=== PATIENT | female | born 1965 | race Caucasian/White ===

== ENCOUNTER 2017-02-18 03:20 | Day surgery (SDC) | payer OTHER ==
[~2017-02-18] VITALS: Ht 165.1 cm; Wt 63.2 kg
[~2017-02-18 03:20] MED LIST: ADVAIR PO; ALBIPROI INH; ALBU90OI INH; ALBU90OI6 INH; ALBU90OI61 INH; AMLO10 PO; AMLO5 PO; AMOCLA500 PO; ATOR40TA PO; B-121000 MC2 PO; BIOTIN; Biotin10 MG PO; CARV3.125 PO; CARV6.25 PO; CIPR250 PO; CLON.1 PO; CLON.2 PO; CLON.5 PO; CLOP75 PO; CREON; CREON DR 24,001 EACH PO; CYAN1000 PO; Carafate1 GM/10 ML PO; Chantix0.5 MG PO; Coreg12.5 MG PO; Dazidox10 MG; FERR325; FERR325 PO; FLUSAL1005 IH; FLUSAL1005 INH; FLUSAL2505 INH; FURO20 PO; FURO40 PO; FURO80 PO; GABA100 PO; GABA300 PO; GAVILAX17 GM PO; HYDR1TAB94 PO; Hydrochloroth12.5 MG PO; IRON150C PO; LASIX; LAVAP17G PO; LEVFLO250 PO; LISHYD2025 PO; LISI20 PO; LOSA25 PO; LOSA50 PO; MAGCHL64ER PO; MELA3 PO; MIDO2.5 PO; MORP15ER PO; NAPR220 PO; NEBI5 PO; Norco 5-325 Ta1 EACH PO; OLME5TAB PO; OMEP20ER PO; OMEP40CA12 PO; ONDA4ODT MM; ONDA8 PO; OXYACE5T PO; OXYC10TA19 PO; OXYC1TAB11 PO; OXYC5 PO; Omeprazole20 M1 PO; PANT40 PO; POTA10T PO; PROM25 PO; Percocet 5-3251 EACH PO; RANI150 PO; RXOXYACE PO; SPIR25 PO; SUCR1 PO; SULTRIDS PO; Stool Softener100 MG PO; TRAM50 PO; TRAZ50 PO; VARE1 PO; VITAMIN D10000 UNIT PO; XARELTO10 MG PO; Zofran Odt4 MG PO; Zofran4 MG PO; Zofran8 MG PO
[2017-12-17] MEDS ORDERED: ATOR20 PO (12:12)
[2017-12-17] MEDS ORDERED: WARF5 PO (12:12)
== END 2017-02-18 14:45 | disposition home or self-care (01) ==
LOC: MHTC 03:20
PROC: 047L3Z1 Dilation of Left Femoral Artery using Drug-Coated Balloon, Percutaneous Approach (ICD-10-PCS; principal; 2017-02-18)
DX: I70.212 Atherosclerosis of native arteries of extremities with intermittent claudication, left leg (principal); J44.9 Chronic obstructive pulmonary disease, unspecified; I10 Essential (primary) hypertension; F17.210 Nicotine dependence, cigarettes, uncomplicated; E78.5 Hyperlipidemia, unspecified
CPT/HCPCS: 37224; 75710; 76937; 85347; 99152; 99153; C1725; C1769; C2623; J1644; J2060; J2250; J3010; J7030; J7040; Q9967

== ENCOUNTER 2017-03-26 17:15 | Inpatient (IN) | payer OTHER ==
[~2017-03-26] VITALS: Ht 165.1 cm; Wt 65.6 kg
[2017-03-26] MEDS ORDERED: BUDE6HFA INH (17:50)
[2017-03-26 18:05] LABS: BASOPHILS ABSOLUTE AUTO 0.03 K/mm3 (0.00-0.23); BASOPHILS PERCENT AUTO 0 % (0-2); EOSINOPHILS ABSOLUTE AUTO 0.06 K/mm3 (0.00-0.68); EOSINOPHILS PERCENT AUTO 1 % (0-6); Hematocrit 36.2 % (33.0-51.0); Hemoglobin 11.2 g/dL (11.5-16.0); IMMATURE GRAN ABSOLUTE AUTO 0.07 K/mm3 (0.00-0.10); IMMATURE GRAN PERCENT AUTO 1 % (0-1); LYMPHOCYTES ABSOLUTE AUTO 1.65 K/mm3 (0.84-5.20); LYMPHOCYTES PERCENT AUTO 13 % (21-46); MONOCYTES ABSOLUTE AUTO 0.73 K/mm3 (0.16-1.47); MONOCYTES PERCENT AUTO 6 % (4-13); Mean Corpuscular HGB 28.5 pg (26.0-34.0); Mean Corpuscular HGB Conc 30.9 g/dL (31.5-36.5); Mean Platelet Volume 10.2 fL (9.1-12.4); NEUTROPHILS ABSOLUTE AUTO 9.94 K/mm3 (1.96-9.15); NEUTROPHILS PERCENT AUTO 80 % (41-73); Platelet Count 326 K/mm3 (150-400); RDW Coefficient Variation 19.5 % (11.7-14.2); RDW Standard Deviation 62.3 fL (35.1-46.3); Red Blood Cell Count 3.93 M/mm3 (3.80-5.20); White Blood Cell Count 12.48 K/mm3 (4.00-11.30)
[2017-03-26 18:24] LABS: Alanine Aminotransfer (ALT/SGP 16 U/L (12-78); Albumin, Blood 3.4 g/dL (3.4-5.0); Albumin/Globulin Ratio 0.8 (0.8-1.8); Alk Phos 105 U/L (50-136); Anion Gap 13 mmol/L (6-16); Aspartate Aminotrans (AST/SGOT 21 U/L (12-37); Bilirubin, Total 0.3 mg/dL (0.1-1.0); Blood Urea Nitrogen 25 mg/dL (8-24); CO2, Blood 20 mmol/L (21-32); Calcium, Blood 9.1 mg/dL (8.5-10.1); Chloride, Blood 101 mmol/L (98-108); Creatinine, Blood 2.51 mg/dL (0.40-1.00); Globulin, Blood 4.3 g/dL (2.2-4.0); Glomerular Filtration Rate 22 (60-); Glucose, Blood 118 mg/dL (70-99); Potassium, Blood 3.2 mmol/L (3.5-5.5); Sodium, Blood 134 mmol/L (136-145); Total Protein, Blood 7.7 g/dL (6.4-8.2); Troponin I <0.015 ng/mL (0.000-0.040)
[2017-03-26 18:27] LABS: Mean Corpuscular Volume 92 fL (80-100)
[2017-03-26 18:32] LABS: Source, Urine Clean Catch
[2017-03-26 18:35] LABS: Blood, Urine Neg (Neg); Glucose Qualitative, Urine Neg (Neg); Ketones, Urine 1+ (Neg); Leukocyte Esterase, Urine 1+ (Neg); Nitrite, Urine Neg (Neg); Protein, Urine 2+ (Neg); Specific Gravity, Urine 1.025 (1.003-1.022); Urobilinogen, Urine 1+ (Normal)
[2017-03-26 18:50] LABS: Appearance, Urine Clear (Clear); Color, Urine Yellow (P-Yellow)
[2017-03-26 18:51] LABS: Bacteria Mod /hpf; Red Blood Cells, Urine Not Seen /hpf (0-2); Squamous Epithelial Cells Mod /hpf (Few); White Blood Cells, Urine 0-2 /hpf (0-5)
[2017-03-26 20:35] LABS: International Normalized Ratio 0.96
[2017-03-26 22:06] LABS: Ethanol (Alcohol), Blood, Med <3 mg/dL
[2017-03-26 23:22] LABS: Source, Urine Clean Catch
[2017-03-26 23:24] LABS: Bilirubin, Urine Neg (Neg); Blood, Urine 2+ (Neg); Glucose Qualitative, Urine Neg (Neg); Ketones, Urine Neg (Neg); Leukocyte Esterase, Urine Neg (Neg); Nitrite, Urine Neg (Neg); Protein, Urine 2+ (Neg); Specific Gravity, Urine 1.015 (1.003-1.022); Urobilinogen, Urine NORM (Normal)
[2017-03-26 23:29] LABS: Appearance, Urine Clear (Clear); Bacteria Mod /hpf; Color, Urine Yellow (P-Yellow); Red Blood Cells, Urine 0-2 /hpf (0-2); Squamous Epithelial Cells Few /hpf (Few); White Blood Cells, Urine 0-2 /hpf (0-5)
[2017-03-26 23:38] LABS: U Amphetamine Screen Not Detected; U Barbituate Screen Not Detected; U Benzodiazapine Screen Not Detected; U Buprenorphine Screen Not Detected; U Cannabinoids Screen DETECTED; U Cocaine Screen Not Detected; U Methadone Screen Not Detected; U Methamphetamine Screen Not Detected; U Opiates Screen DETECTED; U Oxycodone Screen Not Detected; U Phencyclidine Screen Not Detected; U Propoxyphene Screen Not Detected
[2017-03-27 05:40] LABS: Magnesium, Blood 2.5 mg/dL (1.6-2.4); Phosphorus, Blood 3.3 mg/dL (2.5-4.9)
[2017-03-27 09:45] LABS: Vancomycin, Random 11.9 ug/mL
[2017-03-28 05:12] LABS: BASOPHILS ABSOLUTE AUTO 0.04 K/mm3 (0.00-0.23); BASOPHILS PERCENT AUTO 1 % (0-2); EOSINOPHILS ABSOLUTE AUTO 0.23 K/mm3 (0.00-0.68); EOSINOPHILS PERCENT AUTO 3 % (0-6); IMMATURE GRAN ABSOLUTE AUTO 0.04 K/mm3 (0.00-0.10); IMMATURE GRAN PERCENT AUTO 1 % (0-1); LYMPHOCYTES ABSOLUTE AUTO 1.64 K/mm3 (0.84-5.20); LYMPHOCYTES PERCENT AUTO 19 % (21-46); MONOCYTES ABSOLUTE AUTO 0.54 K/mm3 (0.16-1.47); MONOCYTES PERCENT AUTO 6 % (4-13); Mean Corpuscular HGB 27.9 pg (26.0-34.0); Mean Corpuscular HGB Conc 28.1 g/dL (31.5-36.5); Mean Platelet Volume 10.4 fL (9.1-12.4); NEUTROPHILS ABSOLUTE AUTO 6.02 K/mm3 (1.96-9.15); NEUTROPHILS PERCENT AUTO 71 % (41-73); Platelet Count 268 K/mm3 (150-400); RDW Standard Deviation 72.4 fL (35.1-46.3); Red Blood Cell Count 3.23 M/mm3 (3.80-5.20); White Blood Cell Count 8.51 K/mm3 (4.00-11.30)
[2017-03-28 05:28] LABS: Mean Corpuscular Volume 99 fL (80-100)
[2017-03-28 05:39] LABS: Albumin, Blood 2.7 g/dL (3.4-5.0); Albumin/Globulin Ratio 0.8 (0.8-1.8); Bilirubin, Total 0.3 mg/dL (0.1-1.0); Bun/Creatinine Ratio 9.6 (12.0-20.0); Calcium, Blood 7.9 mg/dL (8.5-10.1); Creatinine, Blood 1.15 mg/dL (0.40-1.00); Globulin, Blood 3.6 g/dL (2.2-4.0); Potassium, Blood 4.1 mmol/L (3.5-5.5); Total Protein, Blood 6.3 g/dL (6.4-8.2)
[2017-03-28] MEDS ORDERED: DOCU100 PO (11:27)
[2017-03-28] MEDS ORDERED: NICO21TP TOP (11:28)
[2017-03-28] MEDS ORDERED: GAVILAX17 GM PO (11:28)
[2017-03-28] MEDS ORDERED: HYDR1TAB94 PO (11:28)
[2017-12-17] MEDS ORDERED: ATOR20 PO (12:12)
[2017-12-17] MEDS ORDERED: WARF5 PO (12:12)
== END 2017-03-28 11:53 | disposition home or self-care (01) | DRG 871 ==
LOC: ER 17:15 → MEDS 20:11 → ENPENDDIS 03-28 10:00 → MEDS 03-28 11:53
PROVIDERS: Family Medicine; Internal Medicine; Physician Assistant
PROC: 3E0234Z Introduction of Serum, Toxoid and Vaccine into Muscle, Percutaneous Approach (ICD-10-PCS; principal; 2017-03-27)
DX: A41.9 Sepsis, unspecified organism (principal); K85.90 Acute pancreatitis without necrosis or infection, unspecified; N17.9 Acute kidney failure, unspecified; K86.1 Other chronic pancreatitis; E87.1 Hypo-osmolality and hyponatremia; K86.3 Pseudocyst of pancreas; Z23 Encounter for immunization; F12.20 Cannabis dependence, uncomplicated; F10.20 Alcohol dependence, uncomplicated; E87.6 Hypokalemia; I12.9 Hypertensive chronic kidney disease with stage 1 through stage 4 chronic kidney disease, or unspecified chronic kidney disease; N18.9 Chronic kidney disease, unspecified; E78.5 Hyperlipidemia, unspecified; K21.9 Gastro-esophageal reflux disease without esophagitis; J44.9 Chronic obstructive pulmonary disease, unspecified; I73.9 Peripheral vascular disease, unspecified; F17.210 Nicotine dependence, cigarettes, uncomplicated; R11.2 Nausea with vomiting, unspecified; R10.9 Unspecified abdominal pain
CPT/HCPCS: 36415; 71046; 74177; 76705; 80053; 80202; 81001; 82150; 82330; 82565; 83605; 83690; 83735; 84100; 84484; 85025; 85610; 85730; 87040; 87081; 87086; 93005; 93010; 94640; 94760; 96361; 96365; 96375; 99285; C9113; G0480; J0713; J1170; J1650; J1885; J2405; J2543; J3370; J3411; J3475; J3480; J7030; J7042; J7050; Q9967

== ENCOUNTER → 2017-05-28 | Outpatient (CLI) | payer OTHER ==
[~2017-05-28] MED LIST changes: +BUDE6HFA INH; +DOCU100 PO; +NICO21TP TOP
[2017-05-28 18:56] LABS: Albumin, Blood 2.4 g/dL (3.4-5.0); Albumin/Globulin Ratio 0.7 (0.8-1.8); Bilirubin, Total 0.2 mg/dL (0.1-1.0); Bun/Creatinine Ratio 6.3 (12.0-20.0); Calcium, Blood 7.7 mg/dL (8.5-10.1); Creatinine, Blood 1.11 mg/dL (0.40-1.00); Globulin, Blood 3.4 g/dL (2.2-4.0); Potassium, Blood 4.2 mmol/L (3.5-5.5); Total Protein, Blood 5.8 g/dL (6.4-8.2)
== END | disposition home or self-care (01) ==
LOC: LAB 17:27 → LAB SHORT 17:27
PROVIDERS: Internal Medicine Hematology & Oncology
DX: E53.8 Deficiency of other specified B group vitamins (principal); D50.0 Iron deficiency anemia secondary to blood loss (chronic)
CPT/HCPCS: 80053; 82607; 82746

== ENCOUNTER 2017-09-12 23:32 | Inpatient (IN) | payer OTHER ==
[~2017-09-12] VITALS: Ht 165.1 cm; Wt 71.8 kg
[2017-09-13 00:40] LABS: BASOPHILS ABSOLUTE AUTO 0.09 K/mm3 (0.00-0.23); BASOPHILS PERCENT AUTO 1 % (0-2); EOSINOPHILS ABSOLUTE AUTO 0.12 K/mm3 (0.00-0.68); EOSINOPHILS PERCENT AUTO 1 % (0-6); Hematocrit 35.5 % (33.0-51.0); Hemoglobin 11.1 g/dL (11.5-16.0); IMMATURE GRAN ABSOLUTE AUTO 0.26 K/mm3 (0.00-0.10); IMMATURE GRAN PERCENT AUTO 2 % (0-1); LYMPHOCYTES ABSOLUTE AUTO 2.73 K/mm3 (0.84-5.20); LYMPHOCYTES PERCENT AUTO 24 % (21-46); MONOCYTES ABSOLUTE AUTO 0.87 K/mm3 (0.16-1.47); MONOCYTES PERCENT AUTO 8 % (4-13); Mean Corpuscular HGB 37.8 pg (26.0-34.0); Mean Corpuscular HGB Conc 31.3 g/dL (31.5-36.5); Mean Corpuscular Volume 121 fL (80-100); Mean Platelet Volume 12.7 fL (9.1-12.4); NEUTROPHILS ABSOLUTE AUTO 7.23 K/mm3 (1.96-9.15); NEUTROPHILS PERCENT AUTO 64 % (41-73); NRBC ABSOLUTE 0.22 K/mm3 (0.00-0.02); NRBC Auto 1.9 /100 WBC (0.0-0.2); Platelet Count 212 K/mm3 (150-400); RDW Coefficient Variation 17.8 % (11.7-14.2); RDW Standard Deviation 79.7 fL (35.1-46.3); Red Blood Cell Count 2.94 M/mm3 (3.80-5.20)
[2017-09-13 01:10] LABS: Source, Urine Clean Catch
[2017-09-13 01:35] LABS: Alanine Aminotransfer (ALT/SGP 298 U/L (12-78); Albumin, Blood 1.8 g/dL (3.4-5.0); Albumin/Globulin Ratio 0.4 (0.8-1.8); Alk Phos 270 U/L (50-136); Anion Gap 11 mmol/L (6-16); Aspartate Aminotrans (AST/SGOT 1424 U/L (12-37); Bilirubin, Total 4.2 mg/dL (0.1-1.0); Blood Urea Nitrogen 22 mg/dL (8-24); Bun/Creatinine Ratio 8.1 (12.0-20.0); CO2, Blood 24 mmol/L (21-32); Chloride, Blood 102 mmol/L (98-108); Creatinine, Blood 2.71 mg/dL (0.40-1.00); Globulin, Blood 4.4 g/dL (2.2-4.0); Glomerular Filtration Rate 20 (60-); Glucose, Blood 84 mg/dL (70-99); Potassium, Blood 4.8 mmol/L (3.5-5.5); Sodium, Blood 137 mmol/L (136-145); Total Protein, Blood 6.2 g/dL (6.4-8.2)
[2017-09-13 01:59] LABS: Appearance, Urine Cloudy (Clear); Blood, Urine 5+ (Neg); Color, Urine Amber (P-Yellow); Glucose Qualitative, Urine Neg (Neg); Ketones, Urine 1+ (Neg); Leukocyte Esterase, Urine 3+ (Neg); Nitrite, Urine Pos (Neg); Protein, Urine 3+ (Neg); Urobilinogen, Urine 4+ (Normal)
[2017-09-13 02:30] LABS: Bilirubin, Urine 3+ (Neg)
[2017-09-13 02:33] LABS: Amorphous Light (0-Heavy); Bacteria Many /hpf; Squamous Epithelial Cells Few /hpf (Few)
[2017-09-13 03:10] LABS: Ethanol (Alcohol), Blood, Med <3 mg/dL
[2017-09-13] MEDS ORDERED: CHOL10002 (05:28)
[2017-09-13 05:36] LABS: International Normalized Ratio 1.11; Prothrombin Time Results 11.4 Sec (9.7-11.5)
[2017-09-13] MEDS ORDERED: IBUP400 PO ×4 (05:37→05:45)
[2017-09-13 12:26] LABS: Hematocrit 31.3 % (33.0-51.0); Hemoglobin 9.6 g/dL (11.5-16.0); Mean Corpuscular HGB 37.4 pg (26.0-34.0); Mean Corpuscular HGB Conc 30.7 g/dL (31.5-36.5); Mean Corpuscular Volume 122 fL (80-100); Mean Platelet Volume 12.3 fL (9.1-12.4); NRBC ABSOLUTE 0.09 K/mm3 (0.00-0.02); NRBC Auto 1.1 /100 WBC (0.0-0.2); Platelet Count 165 K/mm3 (150-400); RDW Coefficient Variation 18.2 % (11.7-14.2); RDW Standard Deviation 79.5 fL (35.1-46.3); Red Blood Cell Count 2.57 M/mm3 (3.80-5.20); White Blood Cell Count 8.41 K/mm3 (4.00-11.30)
[2017-09-13 12:47] LABS: Albumin, Blood 1.8 g/dL (3.4-5.0); Albumin/Globulin Ratio 0.5 (0.8-1.8); Bun/Creatinine Ratio 9.8 (12.0-20.0); Calcium, Blood 7.2 mg/dL (8.5-10.1); Creatinine, Blood 2.14 mg/dL (0.40-1.00); Globulin, Blood 3.3 g/dL (2.2-4.0); Potassium, Blood 4.3 mmol/L (3.5-5.5); Total Protein, Blood 5.1 g/dL (6.4-8.2)
[2017-09-15 04:45] LABS: BASOPHILS ABSOLUTE AUTO 0.06 K/mm3 (0.00-0.23); BASOPHILS PERCENT AUTO 1 % (0-2); EOSINOPHILS ABSOLUTE AUTO 0.08 K/mm3 (0.00-0.68); EOSINOPHILS PERCENT AUTO 1 % (0-6); Hematocrit 31.9 % (33.0-51.0); Hemoglobin 9.9 g/dL (11.5-16.0); IMMATURE GRAN ABSOLUTE AUTO 0.13 K/mm3 (0.00-0.10); IMMATURE GRAN PERCENT AUTO 2 % (0-1); LYMPHOCYTES ABSOLUTE AUTO 1.18 K/mm3 (0.84-5.20); LYMPHOCYTES PERCENT AUTO 15 % (21-46); MONOCYTES ABSOLUTE AUTO 0.53 K/mm3 (0.16-1.47); MONOCYTES PERCENT AUTO 7 % (4-13); Mean Corpuscular HGB 37.2 pg (26.0-34.0); Mean Corpuscular Volume 120 fL (80-100); Mean Platelet Volume 12.2 fL (9.1-12.4); NEUTROPHILS ABSOLUTE AUTO 5.85 K/mm3 (1.96-9.15); NEUTROPHILS PERCENT AUTO 75 % (41-73); NRBC ABSOLUTE 0.05 K/mm3 (0.00-0.02); NRBC Auto 0.6 /100 WBC (0.0-0.2); Platelet Count 165 K/mm3 (150-400); RDW Coefficient Variation 17.9 % (11.7-14.2); RDW Standard Deviation 78.7 fL (35.1-46.3); Red Blood Cell Count 2.66 M/mm3 (3.80-5.20); White Blood Cell Count 7.83 K/mm3 (4.00-11.30)
[2017-09-15 05:17] LABS: Bun/Creatinine Ratio 16.7 (12.0-20.0); Calcium, Blood 8.1 mg/dL (8.5-10.1); Creatinine, Blood 1.08 mg/dL (0.40-1.00); Potassium, Blood 4.3 mmol/L (3.5-5.5)
[2017-09-16 07:57] LABS: Base Excess Venous -0.6 mmol/L; Bicarbonate Venous 24.3 mmol/L (24.0-30.0); PCO2 Venous 31.9 mmHg (38-42); PO2 Venous 101 mmHg (38-42); pH Blood Venous 7.47 (7.34-7.37)
[2017-09-17 05:37] LABS: BASOPHILS ABSOLUTE AUTO 0.08 K/mm3 (0.00-0.23); BASOPHILS PERCENT AUTO 1 % (0-2); EOSINOPHILS ABSOLUTE AUTO 0.12 K/mm3 (0.00-0.68); EOSINOPHILS PERCENT AUTO 1 % (0-6); Hemoglobin 10.2 g/dL (11.5-16.0); IMMATURE GRAN ABSOLUTE AUTO 0.28 K/mm3 (0.00-0.10); IMMATURE GRAN PERCENT AUTO 3 % (0-1); LYMPHOCYTES PERCENT AUTO 20 % (21-46); MONOCYTES ABSOLUTE AUTO 0.69 K/mm3 (0.16-1.47); MONOCYTES PERCENT AUTO 7 % (4-13); Mean Corpuscular HGB Conc 31.9 g/dL (31.5-36.5); Mean Platelet Volume 12.6 fL (9.1-12.4); NEUTROPHILS ABSOLUTE AUTO 6.84 K/mm3 (1.96-9.15); NEUTROPHILS PERCENT AUTO 68 % (41-73); NRBC ABSOLUTE 0.06 K/mm3 (0.00-0.02); NRBC Auto 0.6 /100 WBC (0.0-0.2); Platelet Count 184 K/mm3 (150-400); RDW Coefficient Variation 17.6 % (11.7-14.2); RDW Standard Deviation 75.4 fL (35.1-46.3); Red Blood Cell Count 2.76 M/mm3 (3.80-5.20); White Blood Cell Count 10.01 K/mm3 (4.00-11.30)
[2017-09-17 05:41] LABS: Mean Corpuscular Volume 116 fL (80-100)
[2017-09-17 05:59] LABS: Anion Gap 8 mmol/L (6-16); Blood Urea Nitrogen 13 mg/dL (8-24); Bun/Creatinine Ratio 15.3 (12.0-20.0); CO2, Blood 25 mmol/L (21-32); Calcium, Blood 8.2 mg/dL (8.5-10.1); Chloride, Blood 108 mmol/L (98-108); Creatinine, Blood 0.85 mg/dL (0.40-1.00); Glomerular Filtration Rate >60 (60-); Glucose, Blood 80 mg/dL (70-99); Sodium, Blood 141 mmol/L (136-145)
[2017-09-17] MEDS ORDERED: ALBU2.5V5 NEB (11:06)
[2017-09-17] MEDS ORDERED: GABA100 PO (11:08)
[2017-09-17] MEDS ORDERED: GUAI600T33 PO (11:10)
[2017-09-17] MEDS ORDERED: HYDCHL25 PO (11:11)
[2017-09-17] MEDS ORDERED: NICO21TP TOP (11:12)
== END 2017-09-17 11:48 | disposition home or self-care (01) | DRG 690 ==
LOC: ER 23:32 → PCU 09-13 03:35 → MEDS 09-14 15:50
PROVIDERS: Emergency Medicine; Internal Medicine
DX: N39.0 Urinary tract infection, site not specified (principal); N17.9 Acute kidney failure, unspecified; F10.230 Alcohol dependence with withdrawal, uncomplicated; E78.5 Hyperlipidemia, unspecified; I10 Essential (primary) hypertension; J44.9 Chronic obstructive pulmonary disease, unspecified; I73.9 Peripheral vascular disease, unspecified; N18.2 Chronic kidney disease, stage 2 (mild); F17.210 Nicotine dependence, cigarettes, uncomplicated; R74.0 Nonspecific elevation of levels of transaminase and lactic acid dehydrogenase [LDH]; B96.20 Unspecified Escherichia coli [E. coli] as the cause of diseases classified elsewhere; E88.09 Other disorders of plasma-protein metabolism, not elsewhere classified; K70.30 Alcoholic cirrhosis of liver without ascites; D63.1 Anemia in chronic kidney disease; R91.1 Solitary pulmonary nodule
CPT/HCPCS: 36415; 71045; 71260; 76705; 80048; 80053; 81001; 82803; 83605; 83690; 83880; 85025; 85027; 85379; 85610; 87040; 87077; 87086; 87186; 93005; 93010; 93925; 94640; 94760; 94761; 96361; 96374; 96375; 97110; 97116; 97162; 97166; 97530; 97535; 99285-25; G0480; G8978; G8979; G8987; G8988; J0696; J0780; J1650; J2405; J3010; J7030; P9041; P9612; Q9967

== ENCOUNTER 2018-05-05 20:59 | Emergency (ER) | payer OTHER ==
[~2018-05-05] VITALS: Ht 167.6 cm; Wt 59.0 kg
[~2018-05-05 20:59] MED LIST changes: +ALBU2.5V5 NEB; +ATOR20 PO; +CHOL10002; +GUAI600T33 PO; +HYDCHL25 PO; +IBUP400 PO; +WARF5 PO
[2018-05-05 21:26] LABS: BASOPHILS ABSOLUTE AUTO 0.05 K/mm3 (0.00-0.23); BASOPHILS PERCENT AUTO 1 % (0-2); EOSINOPHILS ABSOLUTE AUTO 0.08 K/mm3 (0.00-0.68); EOSINOPHILS PERCENT AUTO 1 % (0-6); Hemoglobin 13.6 g/dL (11.5-16.0); IMMATURE GRAN ABSOLUTE AUTO 0.04 K/mm3 (0.00-0.10); IMMATURE GRAN PERCENT AUTO 0 % (0-1); LYMPHOCYTES ABSOLUTE AUTO 1.57 K/mm3 (0.84-5.20); LYMPHOCYTES PERCENT AUTO 16 % (21-46); MONOCYTES ABSOLUTE AUTO 0.47 K/mm3 (0.16-1.47); MONOCYTES PERCENT AUTO 5 % (4-13); Mean Corpuscular HGB 30.4 pg (26.0-34.0); Mean Corpuscular HGB Conc 31.6 g/dL (31.5-36.5); Mean Corpuscular Volume 96 fL (80-100); Mean Platelet Volume 10.2 fL (9.1-12.4); NEUTROPHILS ABSOLUTE AUTO 7.59 K/mm3 (1.96-9.15); NEUTROPHILS PERCENT AUTO 78 % (41-73); Platelet Count 392 K/mm3 (150-400); RDW Coefficient Variation 22.8 % (11.7-14.2); RDW Standard Deviation 75.5 fL (35.1-46.3); Red Blood Cell Count 4.48 M/mm3 (3.80-5.20)
[2018-05-05 21:47] LABS: Alanine Aminotransfer (ALT/SGP 41 U/L (12-78); Albumin, Blood 3.5 g/dL (3.4-5.0); Albumin/Globulin Ratio 0.8 (0.8-1.8); Alk Phos 198 U/L (50-136); Anion Gap 9 mmol/L (6-16); Aspartate Aminotrans (AST/SGOT 114 U/L (12-37); Bilirubin, Total 0.4 mg/dL (0.1-1.0); Blood Urea Nitrogen 12 mg/dL (8-24); Bun/Creatinine Ratio 13.3 (12.0-20.0); CO2, Blood 24 mmol/L (21-32); Calcium, Blood 8.6 mg/dL (8.5-10.1); Chloride, Blood 102 mmol/L (98-108); Globulin, Blood 4.6 g/dL (2.2-4.0); Glomerular Filtration Rate >60 (60-); Glucose, Blood 112 mg/dL (70-99); Potassium, Blood 3.9 mmol/L (3.5-5.5); Sodium, Blood 135 mmol/L (136-145); Total Protein, Blood 8.1 g/dL (6.4-8.2)
[2018-05-05] MEDS ORDERED: Zocor20 MG PO (22:28)
[2018-05-05] MEDS ORDERED: CLON.5 PO (22:28)
[2018-05-05] MEDS ORDERED: TRAM50 PO (22:28)
[2018-05-06] MEDS ORDERED: ONDA4ODT MM (01:38)
[2018-05-06] MEDS ORDERED: Norco 5-325 Ta1 EACH PO (01:38)
== END 2018-05-06 02:02 | disposition home or self-care (01) ==
LOC: ER 20:59
PROVIDERS: Physician Assistant
DX: K86.0 Alcohol-induced chronic pancreatitis (principal); Z79.899 Other long term (current) drug therapy; Z79.01 Long term (current) use of anticoagulants; I10 Essential (primary) hypertension; J44.9 Chronic obstructive pulmonary disease, unspecified; F17.210 Nicotine dependence, cigarettes, uncomplicated; F17.290 Nicotine dependence, other tobacco product, uncomplicated
CPT/HCPCS: 36415; 74176; 80053; 83690; 85025; 96374; 96375; 99284-25; A9270-GY; G0480; J1170; J2405

== ENCOUNTER 2018-05-24 21:21 | Emergency (ER) | payer OTHER ==
[~2018-05-24] VITALS: Ht 165.1 cm; Wt 65.8 kg
[~2018-05-24 21:21] MED LIST changes: +CEPH500 PO; +Pyridium200 MG PO; +Zocor20 MG PO
[2018-05-24 22:03] LABS: Source, Urine Clean Catch
[2018-05-24 22:08] LABS: Bilirubin, Urine Neg (Neg); Blood, Urine Neg (Neg); Glucose Qualitative, Urine Neg (Neg); Ketones, Urine Neg (Neg); Leukocyte Esterase, Urine 1+ (Neg); Nitrite, Urine Neg (Neg); Protein, Urine Neg (Neg); Specific Gravity, Urine 1.005 (1.003-1.022); Urobilinogen, Urine NORM (Normal)
[2018-05-24 22:13] LABS: Appearance, Urine Clear (Clear); Color, Urine Yellow (P-Yellow)
[2018-05-24 22:15] LABS: Squamous Epithelial Cells Mod /hpf (Few)
[2018-05-24 22:16] LABS: Bacteria Rare /hpf; Red Blood Cells, Urine Not Seen /hpf (0-2); White Blood Cells, Urine 0-2 /hpf (0-5)
[2018-05-24 22:20] LABS: BASOPHILS ABSOLUTE AUTO 0.07 K/mm3 (0.00-0.23); BASOPHILS PERCENT AUTO 1 % (0-2); EOSINOPHILS ABSOLUTE AUTO 0.08 K/mm3 (0.00-0.68); EOSINOPHILS PERCENT AUTO 1 % (0-6); Hematocrit 34.2 % (33.0-51.0); Hemoglobin 10.4 g/dL (11.5-16.0); IMMATURE GRAN ABSOLUTE AUTO 0.07 K/mm3 (0.00-0.10); IMMATURE GRAN PERCENT AUTO 1 % (0-1); LYMPHOCYTES ABSOLUTE AUTO 1.82 K/mm3 (0.84-5.20); LYMPHOCYTES PERCENT AUTO 18 % (21-46); MONOCYTES ABSOLUTE AUTO 0.74 K/mm3 (0.16-1.47); MONOCYTES PERCENT AUTO 7 % (4-13); Mean Corpuscular HGB 30.4 pg (26.0-34.0); Mean Corpuscular HGB Conc 30.4 g/dL (31.5-36.5); Mean Corpuscular Volume 100 fL (80-100); Mean Platelet Volume 10.6 fL (9.1-12.4); NEUTROPHILS ABSOLUTE AUTO 7.19 K/mm3 (1.96-9.15); NEUTROPHILS PERCENT AUTO 72 % (41-73); Platelet Count 476 K/mm3 (150-400); RDW Coefficient Variation 24.1 % (11.7-14.2); RDW Standard Deviation 86.7 fL (35.1-46.3); Red Blood Cell Count 3.42 M/mm3 (3.80-5.20); White Blood Cell Count 9.97 K/mm3 (4.00-11.30)
[2018-05-24 23:19] LABS: Alanine Aminotransfer (ALT/SGP 13 U/L (12-78); Albumin, Blood 2.3 g/dL (3.4-5.0); Albumin/Globulin Ratio 0.5 (0.8-1.8); Alk Phos 126 U/L (50-136); Anion Gap 10 mmol/L (6-16); Aspartate Aminotrans (AST/SGOT 29 U/L (12-37); Bilirubin, Total 0.2 mg/dL (0.1-1.0); Blood Urea Nitrogen 10 mg/dL (8-24); Bun/Creatinine Ratio 11.7 (12.0-20.0); CO2, Blood 26 mmol/L (21-32); Calcium, Blood 7.8 mg/dL (8.5-10.1); Chloride, Blood 102 mmol/L (98-108); Creatinine, Blood 0.86 mg/dL (0.40-1.00); Globulin, Blood 4.2 g/dL (2.2-4.0); Glomerular Filtration Rate >60 (60-); Glucose, Blood 99 mg/dL (70-99); Potassium, Blood 3.4 mmol/L (3.5-5.5); Sodium, Blood 138 mmol/L (136-145); Total Protein, Blood 6.5 g/dL (6.4-8.2)
[2018-05-24] MEDS ORDERED: Zofran4 MG PO (23:58)
== END 2018-05-25 00:25 | disposition home or self-care (01) ==
LOC: ER 21:21
PROVIDERS: Emergency Medicine; Physician Assistant
DX: K52.9 Noninfective gastroenteritis and colitis, unspecified (principal); J44.9 Chronic obstructive pulmonary disease, unspecified; F17.210 Nicotine dependence, cigarettes, uncomplicated; Z79.899 Other long term (current) drug therapy; Z79.01 Long term (current) use of anticoagulants; Z86.73 Personal history of transient ischemic attack (TIA), and cerebral infarction without residual deficits
CPT/HCPCS: 36415; 80053; 81001; 83690; 85025; 87086; 96361; 96374; 96375; 99284-25; A9270-GY; J2405; J3010; J7030

== ENCOUNTER 2018-05-27 14:00 | Inpatient (IN) | payer OTHER ==
[~2018-05-27] VITALS: Ht 165.1 cm; Wt 63.3 kg
[2018-05-27 14:42] LABS: BASOPHILS ABSOLUTE AUTO 0.05 K/mm3 (0.00-0.23); BASOPHILS PERCENT AUTO 1 % (0-2); EOSINOPHILS ABSOLUTE AUTO 0.08 K/mm3 (0.00-0.68); EOSINOPHILS PERCENT AUTO 1 % (0-6); Hematocrit 28.3 % (33.0-51.0); Hemoglobin 8.4 g/dL (11.5-16.0); IMMATURE GRAN ABSOLUTE AUTO 0.09 K/mm3 (0.00-0.10); IMMATURE GRAN PERCENT AUTO 1 % (0-1); LYMPHOCYTES ABSOLUTE AUTO 1.33 K/mm3 (0.84-5.20); LYMPHOCYTES PERCENT AUTO 16 % (21-46); MONOCYTES ABSOLUTE AUTO 0.51 K/mm3 (0.16-1.47); MONOCYTES PERCENT AUTO 6 % (4-13); Mean Corpuscular HGB 30.4 pg (26.0-34.0); Mean Corpuscular HGB Conc 29.7 g/dL (31.5-36.5); Mean Platelet Volume 10.4 fL (9.1-12.4); NEUTROPHILS ABSOLUTE AUTO 6.34 K/mm3 (1.96-9.15); NEUTROPHILS PERCENT AUTO 75 % (41-73); NRBC ABSOLUTE 0.02 K/mm3 (0.00-0.02); NRBC Auto 0.2 /100 WBC (0.0-0.2); Platelet Count 431 K/mm3 (150-400); RDW Coefficient Variation 24.6 % (11.7-14.2); RDW Standard Deviation 92.4 fL (35.1-46.3); Red Blood Cell Count 2.76 M/mm3 (3.80-5.20)
[2018-05-27 14:48] LABS: Alanine Aminotransfer (ALT/SGP 20 U/L (12-78); Albumin, Blood 2.3 g/dL (3.4-5.0); Albumin/Globulin Ratio 0.6 (0.8-1.8); Alk Phos 124 U/L (50-136); Anion Gap 12 mmol/L (6-16); Aspartate Aminotrans (AST/SGOT 49 U/L (12-37); Bilirubin, Total 0.2 mg/dL (0.1-1.0); Blood Urea Nitrogen 13 mg/dL (8-24); Bun/Creatinine Ratio 15.5 (12.0-20.0); CO2, Blood 21 mmol/L (21-32); Calcium, Blood 7.9 mg/dL (8.5-10.1); Chloride, Blood 105 mmol/L (98-108); Creatinine, Blood 0.84 mg/dL (0.40-1.00); Glomerular Filtration Rate >60 (60-); Glucose, Blood 91 mg/dL (70-99); Potassium, Blood 3.6 mmol/L (3.5-5.5); Sodium, Blood 138 mmol/L (136-145); Total Protein, Blood 6.3 g/dL (6.4-8.2)
[2018-05-27 14:57] LABS: Mean Corpuscular Volume 103 fL (80-100)
[2018-05-27 16:37] LABS: Prothrombin Time Results >90.0 Sec (9.7-11.5)
[2018-05-27] MEDS ORDERED: WARF1 PO (19:46)
[2018-05-27] MEDS ORDERED: BUDE6HFA PO (19:47)
[2018-05-27] MEDS ORDERED: ALBU90OI PO (19:48)
[2018-05-27] MEDS ORDERED: PROM25 PO (19:49)
[2018-05-27] MEDS ORDERED: TRAZ50 PO (19:50)
[2018-05-27] MEDS ORDERED: CLON.1 PO (19:51)
[2018-05-27] MEDS ORDERED: AMLO5 PO (19:51)
[2018-05-27] MEDS ORDERED: FURO20 PO (19:52)
[2018-05-27] MEDS ORDERED: POTCHL10ER PO (19:53)
[2018-05-27] MEDS ORDERED: IRON150C PO (19:54)
[2018-05-27] MEDS ORDERED: DOCU100 PO (19:54)
[2018-05-27] MEDS ORDERED: GUAI600T33 PO (19:55)
[2018-05-27 20:09] LABS: Hematocrit 26.2 % (33.0-51.0); Hemoglobin 7.7 g/dL (11.5-16.0)
[2018-05-27] MEDS ORDERED: GABA300 PO (22:20)
[2018-05-28 00:22] LABS: Hematocrit 22.9 % (33.0-51.0); Hemoglobin 6.7 g/dL (11.5-16.0)
[2018-05-28 00:36] LABS: International Normalized Ratio 2.69; Prothrombin Time Results 26.1 Sec (9.7-11.5)
--- NOTE | 2018-05-28 00:53 | NUR ---
DR. ODELL NOTIFIED: 0016 H&H 6.7 AND 22.9. NEW ORDERS TO TRANSFUSE ONE UNIT OF [facility].
[2018-05-28 05:10] LABS: International Normalized Ratio 2.15
[2018-05-28 05:15] LABS: Alanine Aminotransfer (ALT/SGP 17 U/L (12-78); Albumin, Blood 2.2 g/dL (3.4-5.0); Albumin/Globulin Ratio 0.7 (0.8-1.8); Alk Phos 101 U/L (50-136); Anion Gap 6 mmol/L (6-16); Aspartate Aminotrans (AST/SGOT 40 U/L (12-37); Bilirubin, Total 0.6 mg/dL (0.1-1.0); Blood Urea Nitrogen 8 mg/dL (8-24); Bun/Creatinine Ratio 10.6 (12.0-20.0); CO2, Blood 27 mmol/L (21-32); Calcium, Blood 7.4 mg/dL (8.5-10.1); Chloride, Blood 107 mmol/L (98-108); Creatinine, Blood 0.76 mg/dL (0.40-1.00); Globulin, Blood 3.3 g/dL (2.2-4.0); Glomerular Filtration Rate >60 (60-); Glucose, Blood 92 mg/dL (70-99); Potassium, Blood 3.4 mmol/L (3.5-5.5); Sodium, Blood 140 mmol/L (136-145); Total Protein, Blood 5.5 g/dL (6.4-8.2)
[2018-05-28 05:33] LABS: Prothrombin Time Results 21.3 Sec (9.7-11.5)
[2018-05-28 06:15] LABS: Hemoglobin 7.9 g/dL (11.5-16.0); Mean Corpuscular HGB 30.3 pg (26.0-34.0); Mean Corpuscular HGB Conc 30.4 g/dL (31.5-36.5); Mean Platelet Volume 10.1 fL (9.1-12.4); Platelet Count 307 K/mm3 (150-400); RDW Coefficient Variation 23.4 % (11.7-14.2); RDW Standard Deviation 79.2 fL (35.1-46.3); Red Blood Cell Count 2.61 M/mm3 (3.80-5.20); White Blood Cell Count 6.17 K/mm3 (4.00-11.30)
[2018-05-28 06:16] LABS: Mean Corpuscular Volume 100 fL (80-100)
--- NOTE | 2018-05-28 06:41 | NUR ---
[facility] INFUSED: H&H 7.9 & 26.0. INR 2.15 (WILL PASS ON TO DAY RN TO SEE IF NEED TO RESTART COUMADIN..OR?). PT HAS BEEN PLEASANT, COOPERATIVE T/O NOC AND IS CURRENTLY SLEEPING. VSS. PT HAD STATED THAT SHE IS NOW FEELING HUNGRY WHICH IS UNUSUAL FOR HER. WILL PASS ON FOR POSSIBLE DIET CHANGE THIS AM IF NO SCOPE SCHEDULED. PROTONIX GTT STILL INFUSING, NS INFUSING AT 150mL/hr. CALL LIGHT IN REACH.
--- NOTE | 2018-05-28 08:08 | NUR ---
INITIAL ASSESSMENT PATIENT IS RESTING QUIETLY IN BED. PATIENT WAS MEDICATED WITH PRN PAIN MEDICATION FOR RLQ PAIN. PATIENT HAS A TEMPERATURE OF 99.2 DEGREES FAHRENHEIT. PATIENT HAS SOB ON EXERTION, WITH EXPIRATORY RHONCHI HEARD T/O. PATIENT IS SATTING WELL AT 90% OR ABOVE ON 2 L NC. PATIENT HR IS IN THE 80S TO 90S. NSR. BP IS STABLE. GI IS SOFT WITH MILD DISTENSION, TENDER UPON PALPATION WITH NORMOACTIVE BOWEL TONES. PATIENT WAS GIVEN PRN ZOFRAN FOR NAUSEA. IS WNL. PATIENT HAS SCATTERED SCABS AND BRUISES T/O. PATIENT SKIN IS DUSKY/SCALY LOOKING ON THE LL BARAH[place]. NS IS INFUSING AT 150 ML/HR. PROTONIX IS INFUSING AT 10 ML/HR. NO ACUTE CHANGES TO NOTE AT THIS TIME. BED LOW, CALL LIGHT WITHIN REACH. WILL CONTINUE TO MONITOR.
--- NOTE | 2018-05-28 09:01 | NUR ---
SPOKE WITH DR. HINES, UPDATED ON PATIENT CONDITION. INFORMED OF MORNING POTASSIUM OF 3.4 THIS AM, INFORMED OF INR LEVEL. DR. MURRAY INFORMED OF CONSULT. STATED HE WOULD BE IN TO SEE PATIENT THIS AFTERNOON.
[2018-05-28 10:14] LABS: Hematocrit 27.2 % (33.0-51.0); Hemoglobin 8.3 g/dL (11.5-16.0)
--- NOTE | 2018-05-28 11:54 | NUR ---
PATIENT IS RESTING QUIETLY IN BED. PATIENT WAS ASSISTED TO THE TOILET WITH STANDBY ASSIST AND WALKER, AND THEN TO THE CHAIR. PATIENT WAS ASSISTED WITH BEDBATH. PATIENT WAS MEDICATED WITH PRN PAIN MEDICATION FOR COMPLAINT OF RLQ PAIN. PATIENT IS AFEBRILE. PATIENT REMAINS SATTING WELL AT 90% OR GREATER ON 2L NC. HR IS IN THE 90S WITH NSR. BP IS STABLE. NO ACUTE CHANGES AT THIS TIME TO NOTE. WILL CONTINUE TO MONITOR.
--- NOTE | 2018-05-28 13:06 | NUR ---
DR. MURRAY SAW PATIENT IN ROOM. STATED THAT PATIENT CAN BE CHANGED TO PCU STATUS. ORDERED FOR SCHEDULED MIRALAX AND COLACE PATIENT HAS NOT HAD BM IN MORE THAN 7 DAYS, PER PATIENT REPORT. WOULD LIKE TO CONTINUE PATIENT ON CLEAR LIQUID DIET UNTIL IS ABLE TO HAVE BM. PATIENT INFORMED BY DR. MURRAY THAT SHE IS NOT TO GO OUT TO SMOKE. PATIENT IS NOT HAPPY ABOUT THIS. PATIENT TOLD THAT SHE WOULD LIKE TO GO AMA. DR. HINES CALLED AND INFORMED AND STATED SHE WILL BE DOWN TO TALK WITH PATIENT SOON.
--- NOTE | 2018-05-28 14:14 | NUR ---
PATIENT CHANGED TO MEDICAL FLOOR WITH NO TELE. DR. HINES STATED THAT IT IS OKAY FOR PATIENT TO GO OUT AND SMOKE. PATIENT INSISTENT ON GOING OUT TO SMOKE RIGHT NOW. PATIENT GIVEN MEDICATIONS, LAB IN NOW TO DRAW BLOOD AND THEN PATIENT WILL BE GOING OUT. PATIENT INSTRUCTED THAT SHE MUST BE BACK WITHIN 30 MINUTES OF LEAVING- PATIENT AGREES. PATIENT HAS BEEN ON 2 L NC- SATTING 96%. PATIENT CHANGED TO RA- SATTING 90% AND GREATER WILL NOT BE TAKING O2 OUT TO SMOKE. PATIENT STATES SHE ONLY WEARS O2 AT HOME AT NIGHT ANYWAY SO THAT SHE WILL BE OKAY.
--- NOTE | 2018-05-28 14:18 | NUR ---
PATIENT HAS LEFT UNIT.
[2018-05-28 14:41] LABS: Hematocrit 29.4 % (33.0-51.0); Hemoglobin 8.9 g/dL (11.5-16.0)
--- NOTE | 2018-05-28 14:58 | NUR ---
PATIENT RETURNED TO ROOM AT 1447 WITH WHAT APPEARED TO BE WORSENED SYMPTOMS. PATIENT STATED "THAT DR WAS RIGHT, MY PAIN IS WORSE SINCE I SMOKED". PATIENT WAS ASSISTED BACK TO BED, AND PLACED ON 2L NC. PRN PAIN MEDICATION WAS GIVEN. WILL CONTINUE TO MONITOR.
--- NOTE | 2018-05-28 17:32 | NUR ---
SHIFT SUMMARY PATIENT IS RESTING QUIETLY IN BED. PATIENT IS AFEBRILE. PATIENT CONTINUES TO HAVE SOB ON EXERTION WITH EXPIRATORY WHEEZES HEARD T/O. PATIENT IS SATTING 90% OR GREATER ON 1 L NC. PATIENT HAS A MOIST NONPRODUCTIVE COUGH. PATIENT IS IN NSR WITH HR IN THE 80S-90S. BP IS STABLE. GI IS SOFT, TENDER, W NORMOACTIVE BOWEL SOUNDS. PATIENT HAD SOME NAUSEA THROUGHOUT THE SHIFT TODAY THAT WAS TREATED WITH PRN ZOFRAN. PATIENT HAS EXPERIENCED 8/10 RLQ PAIN THAT WAS TREATED WITH PRN PAIN MEDICATION. IS WNL. PATIENT HAS SCATTERED SCABS AND BRUISES T/O. LL BARAHONA IS DUSKY/SCALY. NS IS INFUSING AT 100 ML/HR. BED LOW. CALL LIGHT IN REACH. NO ACUTE CHANGES AT THIS TIME.
--- NOTE | 2018-05-28 20:05 | NUR ---
PT IS TEARFUL AND HUNCHED OVER ON SIDE OF BED STATING HER PAIN IN ABD IS UNBEARABLE. PERCOCET DID NOT HELP. CALLED RUBÉN PEREZ OVERLOCK WAISTLINE JOINER WHO ORDERED ONE TIME DOSE OF FENTANYL AND INCREASED PERCOCET DOSE. EDUCATED PT THAT THE DOCTORS ARE TRYING TO GET HER SWITCHED OVER TO PO PAIN MEDS SHE IS NOT ABLE TO LEAVE THE HOSPITAL WITH IV PAIN MEDS.
--- NOTE | 2018-05-28 22:02 | NUR ---
PT SITTING UP IN BED WATCHING TV. PAIN IS TOLERABLE AT THE MOMENT.
[2018-05-29 03:50] LABS: BASOPHILS ABSOLUTE AUTO 0.03 K/mm3 (0.00-0.23); BASOPHILS PERCENT AUTO 1 % (0-2); EOSINOPHILS ABSOLUTE AUTO 0.19 K/mm3 (0.00-0.68); EOSINOPHILS PERCENT AUTO 3 % (0-6); Hematocrit 26.6 % (33.0-51.0); Hemoglobin 7.9 g/dL (11.5-16.0); IMMATURE GRAN ABSOLUTE AUTO 0.02 K/mm3 (0.00-0.10); IMMATURE GRAN PERCENT AUTO 0 % (0-1); LYMPHOCYTES ABSOLUTE AUTO 1.63 K/mm3 (0.84-5.20); LYMPHOCYTES PERCENT AUTO 26 % (21-46); MONOCYTES ABSOLUTE AUTO 0.45 K/mm3 (0.16-1.47); MONOCYTES PERCENT AUTO 7 % (4-13); Mean Corpuscular HGB 29.7 pg (26.0-34.0); Mean Corpuscular HGB Conc 29.7 g/dL (31.5-36.5); Mean Corpuscular Volume 100 fL (80-100); NEUTROPHILS ABSOLUTE AUTO 3.88 K/mm3 (1.96-9.15); NEUTROPHILS PERCENT AUTO 63 % (41-73); NRBC ABSOLUTE 0.03 K/mm3 (0.00-0.02); NRBC Auto 0.5 /100 WBC (0.0-0.2); Platelet Count 308 K/mm3 (150-400); RDW Coefficient Variation 24.1 % (11.7-14.2); RDW Standard Deviation 84.8 fL (35.1-46.3); Red Blood Cell Count 2.66 M/mm3 (3.80-5.20)
[2018-05-29 04:05] LABS: International Normalized Ratio 1.22; Prothrombin Time Results 12.7 Sec (9.7-11.5)
[2018-05-29 04:11] LABS: Alanine Aminotransfer (ALT/SGP 18 U/L (12-78); Albumin, Blood 2.2 g/dL (3.4-5.0); Albumin/Globulin Ratio 0.6 (0.8-1.8); Alk Phos 106 U/L (50-136); Anion Gap 6 mmol/L (6-16); Aspartate Aminotrans (AST/SGOT 35 U/L (12-37); Bilirubin, Total 0.4 mg/dL (0.1-1.0); Blood Urea Nitrogen 4 mg/dL (8-24); Bun/Creatinine Ratio 5.3 (12.0-20.0); CO2, Blood 25 mmol/L (21-32); Calcium, Blood 7.4 mg/dL (8.5-10.1); Chloride, Blood 111 mmol/L (98-108); Creatinine, Blood 0.75 mg/dL (0.40-1.00); Globulin, Blood 3.6 g/dL (2.2-4.0); Glomerular Filtration Rate >60 (60-); Glucose, Blood 80 mg/dL (70-99); Potassium, Blood 4.1 mmol/L (3.5-5.5); Sodium, Blood 142 mmol/L (136-145); Total Protein, Blood 5.8 g/dL (6.4-8.2)
--- NOTE | 2018-05-29 06:20 | NUR ---
SUMMARY PT RESTING AT EDGE OF BED. A/O X4. PT HAS HAD BETTER PAIN CONTROL WITH 2 PERCOCET EVERY 4 HR PRN. PLEASANT AND COOPERATIVE. NO NAUSEA. HAS NOT HAD A BM YET. CONTINUES WITH CL DIET. HAS BEEN GETTING TO [facility] WITHOUT ISSUE. CALL LIGHT IN REACH, NO SIGN OF DISTRESS.
--- NOTE | 2018-05-29 07:43 | NUR ---
PATIENT GOING OUT TO SMOKE AT THIS TIME.
--- NOTE | 2018-05-29 08:20 | NUR ---
PATIENT BACK TO ROOM FROM SMOKING OUTSIDE.
--- NOTE | 2018-05-29 08:34 | NUR ---
DR. HINES IN TO SEE PATIENT. DOCTOR INFORMED OF INR OF 1.22 THIS AM. NO ORDERS RECEIVED AT THIS TIME.
--- NOTE | 2018-05-29 08:39 | NUR ---
INITIAL ASSESSMENT PATIENT WENT OUT TO SMOKE THIS AM. RETURNED TO ROOM. PATIENT STATES NO PAIN AT THIS TIME. PATIENT STATED FEELING NAUSEOUS, AND WAS MEDICATED WITH PRN ZOFRAN FOR THIS. PATIENT IS AFEBRILE. PATIENT IS INDEPENDENT IN ROOM. PATIENT IS SATTING AT 90% ON RA. HR IS IN THE 80S-90S. NSR. BP IS STABLE. PATIENT HAD A GREEN/BLACK STOOL LAST NIGHT PER REPORT. IS WNL. PATIENT IS INDEPENDENT IN ROOM. NO ACUTE CHANGES TO NOTE AT THIS TIME. BED LOW. CALL LIGHT IN REACH. WILL CONTINUE TO MONITOR.
[2018-05-29] MEDS ORDERED: Nicotine Patch1 EAC5 TOP (11:17)
[2018-05-29] MEDS ORDERED: GAVILAX17 GM PO (11:18)
[2018-05-29] MEDS ORDERED: Protonix40 MG PO (11:20)
[2018-05-29] MEDS ORDERED: Carafate1 GM/10 ML PO (11:22)
--- NOTE | 2018-05-29 11:58 | NUR ---
DISCHARGE SUMMARY PATIENT WAS GIVEN DISCHARGE INSTRUCTIONS. VITAL SIGNS WERE TAKEN AND STABLE. PATIENT HAD NO COMPLAINTS OF PAIN OR DISCOMFORT. IVS WERE REMOVED. PATIENT WAS TAKEN IN WHEELCHAIR TO [facility] AND ASSISTED INTO HER MOTHER'S AUTOMOBILE.
== END 2018-05-29 11:40 | disposition home or self-care (01) | DRG 812 ==
LOC: ER 14:00 → ICUW 19:45
PROVIDERS: Internal Medicine; Nurse Practitioner Acute Care; Physician Assistant; ADMIT Internal Medicine
PROC: 30233N1 Transfusion of Nonautologous Red Blood Cells into Peripheral Vein, Percutaneous Approach (ICD-10-PCS; principal; 2018-05-27)
DX: D62 Acute posthemorrhagic anemia (principal); K86.1 Other chronic pancreatitis; J44.9 Chronic obstructive pulmonary disease, unspecified; I73.9 Peripheral vascular disease, unspecified; E78.5 Hyperlipidemia, unspecified; F17.210 Nicotine dependence, cigarettes, uncomplicated; Z99.81 Dependence on supplemental oxygen; F10.10 Alcohol abuse, uncomplicated; K21.9 Gastro-esophageal reflux disease without esophagitis; E87.6 Hypokalemia
CPT/HCPCS: 36415; 36430; 74177; 80053; 82272; 83605; 83690; 83735; 85014; 85018; 85025; 85027; 85610; 86850; 86900; 86901; 86923; 87040; 94640; 96361-59; 96374-59; 96375-59; 96376-59; 99285-25; C9113; J1170; J2405; J3010; J3411; J3475; J7030; J7042; P9016; P9059; Q9967

== ENCOUNTER → 2018-06-02 | Outpatient (CLI) | payer OTHER ==
[~2018-06-02] MED LIST changes: +ALBU90OI PO; +BUDE6HFA PO; +Nicotine Patch1 EAC5 TOP; +POTCHL10ER PO; +Protonix40 MG PO; +WARF1 PO
[2018-06-02 15:36] LABS: Percent Saturation 6.4 % (15.0-50.0)
== END | disposition home or self-care (01) ==
LOC: LAB SHORT 15:04 → LAB 15:04
PROVIDERS: Internal Medicine Hematology & Oncology
DX: D50.0 Iron deficiency anemia secondary to blood loss (chronic) (principal)
CPT/HCPCS: 83540; 83550

== ENCOUNTER 2018-07-17 18:58 | Emergency (ER) | payer OTHER ==
[~2018-07-17] VITALS: Ht 160 cm; Wt 70.3 kg
[2018-07-17 19:54] LABS: BASOPHILS ABSOLUTE AUTO 0.06 K/mm3 (0.00-0.23); BASOPHILS PERCENT AUTO 1 % (0-2); EOSINOPHILS ABSOLUTE AUTO 0.09 K/mm3 (0.00-0.68); EOSINOPHILS PERCENT AUTO 1 % (0-6); Hematocrit 38.8 % (33.0-51.0); Hemoglobin 11.4 g/dL (11.5-16.0); IMMATURE GRAN ABSOLUTE AUTO 0.02 K/mm3 (0.00-0.10); IMMATURE GRAN PERCENT AUTO 0 % (0-1); LYMPHOCYTES ABSOLUTE AUTO 1.64 K/mm3 (0.84-5.20); LYMPHOCYTES PERCENT AUTO 25 % (21-46); MONOCYTES ABSOLUTE AUTO 0.55 K/mm3 (0.16-1.47); MONOCYTES PERCENT AUTO 8 % (4-13); Mean Corpuscular HGB 27.9 pg (26.0-34.0); Mean Corpuscular HGB Conc 29.4 g/dL (31.5-36.5); Mean Corpuscular Volume 95 fL (80-100); Mean Platelet Volume 10.9 fL (9.1-12.4); NEUTROPHILS ABSOLUTE AUTO 4.22 K/mm3 (1.96-9.15); NEUTROPHILS PERCENT AUTO 64 % (41-73); Platelet Count 311 K/mm3 (150-400); RDW Coefficient Variation 22.1 % (11.7-14.2); RDW Standard Deviation 75.8 fL (35.1-46.3); Red Blood Cell Count 4.09 M/mm3 (3.80-5.20); White Blood Cell Count 6.58 K/mm3 (4.00-11.30)
[2018-07-17 20:15] LABS: Alanine Aminotransfer (ALT/SGP 22 U/L (12-78); Albumin/Globulin Ratio 0.8 (0.8-1.8); Alk Phos 93 U/L (50-136); Anion Gap 8 mmol/L (6-16); Aspartate Aminotrans (AST/SGOT 43 U/L (12-37); Bilirubin, Total 0.2 mg/dL (0.1-1.0); Blood Urea Nitrogen 7 mg/dL (8-24); Bun/Creatinine Ratio 8.6 (12.0-20.0); CO2, Blood 24 mmol/L (21-32); Calcium, Blood 8.5 mg/dL (8.5-10.1); Chloride, Blood 110 mmol/L (98-108); Creatinine, Blood 0.82 mg/dL (0.40-1.00); Globulin, Blood 3.9 g/dL (2.2-4.0); Glomerular Filtration Rate >60 (60-); Glucose, Blood 121 mg/dL (70-99); Potassium, Blood 3.3 mmol/L (3.5-5.5); Sodium, Blood 142 mmol/L (136-145); Total Protein, Blood 6.9 g/dL (6.4-8.2)
[2018-07-17] MEDS ORDERED: GABA300 PO (20:15)
[2018-07-17 21:28] LABS: Source, Urine Clean Catch
[2018-07-17 21:37] LABS: Appearance, Urine Hazy (Clear); Bilirubin, Urine Neg (Neg); Blood, Urine 1+ (Neg); Color, Urine Yellow (P-Yellow); Glucose Qualitative, Urine Neg (Neg); Ketones, Urine 1+ (Neg); Leukocyte Esterase, Urine 1+ (Neg); Nitrite, Urine Pos (Neg); Protein, Urine 2+ (Neg); Specific Gravity, Urine 1.025 (1.003-1.022); Urobilinogen, Urine NORM (Normal)
[2018-07-17 21:46] LABS: Bacteria Many /hpf; Red Blood Cells, Urine 0-2 /hpf (0-2); Squamous Epithelial Cells Few /hpf (Few)
[2018-07-17] MEDS ORDERED: CEPH500 PO (22:14)
[2018-07-17] MEDS ORDERED: ONDA4ODT MM (22:15)
[2018-07-17] MEDS ORDERED: Percocet 5-3251 EACH PO (22:15)
== END 2018-07-17 23:03 | disposition home or self-care (01) ==
LOC: ER 18:58
PROVIDERS: Emergency Medicine
DX: K85.90 Acute pancreatitis without necrosis or infection, unspecified (principal); E87.6 Hypokalemia; N12 Tubulo-interstitial nephritis, not specified as acute or chronic; Z79.899 Other long term (current) drug therapy; Z79.01 Long term (current) use of anticoagulants; J44.9 Chronic obstructive pulmonary disease, unspecified; Z86.73 Personal history of transient ischemic attack (TIA), and cerebral infarction without residual deficits; F17.200 Nicotine dependence, unspecified, uncomplicated
CPT/HCPCS: 36415; 74022; 80053; 81001; 83690; 85025; 87077; 87086; 87186; 96361; 96365; 96375; 99284-25; A9270; G0480; J0696; J0780; J1170; J2405; J3010; J7030

== ENCOUNTER 2018-10-30 10:00 | Emergency (ER) | payer OTHER ==
[~2018-10-30] VITALS: Ht 165.1 cm; Wt 64.4 kg
[2018-10-30 11:30] LABS: BASOPHILS ABSOLUTE AUTO 0.04 K/mm3 (0.00-0.23); BASOPHILS PERCENT AUTO 1 % (0-2); EOSINOPHILS ABSOLUTE AUTO 0.01 K/mm3 (0.00-0.68); EOSINOPHILS PERCENT AUTO 0 % (0-6); Hematocrit 43.4 % (33.0-51.0); Hemoglobin 14.2 g/dL (11.5-16.0); IMMATURE GRAN ABSOLUTE AUTO 0.02 K/mm3 (0.00-0.10); IMMATURE GRAN PERCENT AUTO 0 % (0-1); LYMPHOCYTES ABSOLUTE AUTO 0.86 K/mm3 (0.84-5.20); LYMPHOCYTES PERCENT AUTO 17 % (21-46); MONOCYTES ABSOLUTE AUTO 0.34 K/mm3 (0.16-1.47); MONOCYTES PERCENT AUTO 7 % (4-13); Mean Corpuscular HGB 34.1 pg (26.0-34.0); Mean Corpuscular HGB Conc 32.7 g/dL (31.5-36.5); Mean Corpuscular Volume 104 fL (80-100); Mean Platelet Volume 10.7 fL (9.1-12.4); NEUTROPHILS ABSOLUTE AUTO 3.81 K/mm3 (1.96-9.15); NEUTROPHILS PERCENT AUTO 75 % (41-73); Platelet Count 253 K/mm3 (150-400); RDW Coefficient Variation 15.1 % (11.7-14.2); RDW Standard Deviation 58.3 fL (35.1-46.3); Red Blood Cell Count 4.16 M/mm3 (3.80-5.20); White Blood Cell Count 5.08 K/mm3 (4.00-11.30)
[2018-10-30 11:45] LABS: Alanine Aminotransfer (ALT/SGP 21 U/L (12-78); Albumin, Blood 2.8 g/dL (3.4-5.0); Albumin/Globulin Ratio 0.7 (0.8-1.8); Alk Phos 161 U/L (50-136); Anion Gap 6 mmol/L (6-16); Aspartate Aminotrans (AST/SGOT 49 U/L (12-37); Bilirubin, Total 0.5 mg/dL (0.1-1.0); Blood Urea Nitrogen 8 mg/dL (8-24); Bun/Creatinine Ratio 10.3 (12.0-20.0); CO2, Blood 24 mmol/L (21-32); Calcium, Blood 8.9 mg/dL (8.5-10.1); Chloride, Blood 107 mmol/L (98-108); Creatinine, Blood 0.78 mg/dL (0.40-1.00); Globulin, Blood 4.2 g/dL (2.2-4.0); Glomerular Filtration Rate >60 (60-); Glucose, Blood 107 mg/dL (70-99); Potassium, Blood 4.6 mmol/L (3.5-5.5); Sodium, Blood 137 mmol/L (136-145)
[2018-10-30 13:28] LABS: Source, Urine Clean Catch
[2018-10-30 13:34] LABS: Bilirubin, Urine Neg (Neg); Blood, Urine Neg (Neg); Glucose Qualitative, Urine Neg (Neg); Ketones, Urine 1+ (Neg); Leukocyte Esterase, Urine Neg (Neg); Nitrite, Urine Neg (Neg); Protein, Urine Neg (Neg); Specific Gravity, Urine 1.015 (1.003-1.022); Urobilinogen, Urine 1+ (Normal)
[2018-10-30 13:41] LABS: Appearance, Urine Clear (Clear); Color, Urine Yellow (P-Yellow)
[2018-10-30] MEDS ORDERED: Ultram50 MG PO ×2 (15:43→16:03)
== END 2018-10-30 16:05 | disposition home or self-care (01) ==
LOC: ER 10:00
PROVIDERS: Emergency Medicine
DX: R10.31 Right lower quadrant pain (principal); I10 Essential (primary) hypertension; N19 Unspecified kidney failure; F17.200 Nicotine dependence, unspecified, uncomplicated; J44.9 Chronic obstructive pulmonary disease, unspecified; Z86.73 Personal history of transient ischemic attack (TIA), and cerebral infarction without residual deficits; Z79.899 Other long term (current) drug therapy
CPT/HCPCS: 36415; 74177; 80053; 81003; 83690; 85025; 96361; 96374-59; 96375; 99284-25; J1170; J2405; J7030; Q9967

== ENCOUNTER 2019-01-01 19:55 | Emergency (ER) | payer OTHER ==
[~2019-01-01] VITALS: Ht 165.1 cm; Wt 65.8 kg
[~2019-01-01 19:55] MED LIST changes: +Ultram50 MG PO
[2019-03-14] MEDS ORDERED: OMEPRAZOLE20 MG PO (03:35)
== END 2019-01-01 22:00 | disposition home or self-care (01) ==
LOC: ER 19:55
DX: F10.129 Alcohol abuse with intoxication, unspecified (principal); S09.90XA Unspecified injury of head, initial encounter; I10 Essential (primary) hypertension; J44.9 Chronic obstructive pulmonary disease, unspecified; F17.200 Nicotine dependence, unspecified, uncomplicated; Z79.899 Other long term (current) drug therapy; Z79.891 Long term (current) use of opiate analgesic; Z79.01 Long term (current) use of anticoagulants; Z86.73 Personal history of transient ischemic attack (TIA), and cerebral infarction without residual deficits; Z85.41 Personal history of malignant neoplasm of cervix uteri; W01.10XA Fall on same level from slipping, tripping and stumbling with subsequent striking against unspecified object, initial encounter
CPT/HCPCS: 70450; 72125; 99284-25

== ENCOUNTER 2019-04-29 18:53 | Emergency (ER) | payer OTHER ==
[~2019-04-29] VITALS: Ht 165.1 cm; Wt 59.0 kg
[~2019-04-29 18:53] MED LIST changes: +OMEPRAZOLE20 MG PO
[2019-04-29 19:46] LABS: BASOPHILS ABSOLUTE AUTO 0.07 K/mm3 (0.00-0.23); BASOPHILS PERCENT AUTO 1 % (0-2); EOSINOPHILS ABSOLUTE AUTO 0.12 K/mm3 (0.00-0.68); EOSINOPHILS PERCENT AUTO 1 % (0-6); Hematocrit 42.9 % (33.0-51.0); Hemoglobin 14.1 g/dL (11.5-16.0); IMMATURE GRAN ABSOLUTE AUTO 0.03 K/mm3 (0.00-0.10); IMMATURE GRAN PERCENT AUTO 0 % (0-1); LYMPHOCYTES ABSOLUTE AUTO 1.48 K/mm3 (0.84-5.20); LYMPHOCYTES PERCENT AUTO 12 % (21-46); MONOCYTES ABSOLUTE AUTO 0.81 K/mm3 (0.16-1.47); MONOCYTES PERCENT AUTO 7 % (4-13); Mean Corpuscular HGB 33.9 pg (26.0-34.0); Mean Corpuscular HGB Conc 32.9 g/dL (31.5-36.5); Mean Corpuscular Volume 103 fL (80-100); Mean Platelet Volume 11.1 fL (9.1-12.4); NEUTROPHILS ABSOLUTE AUTO 9.69 K/mm3 (1.96-9.15); NEUTROPHILS PERCENT AUTO 80 % (41-73); Platelet Count 286 K/mm3 (150-400); RDW Coefficient Variation 15.8 % (11.7-14.2); RDW Standard Deviation 60.4 fL (35.1-46.3); Red Blood Cell Count 4.16 M/mm3 (3.80-5.20)
[2019-04-29 19:58] LABS: Anion Gap 2 mmol/L (6-16); Blood Urea Nitrogen 13 mg/dL (8-24); Bun/Creatinine Ratio 14.7 (12.0-20.0); CO2, Blood 26 mmol/L (21-32); Calcium, Blood 8.5 mg/dL (8.5-10.1); Chloride, Blood 105 mmol/L (98-108); Creatinine, Blood 0.89 mg/dL (0.40-1.00); Glomerular Filtration Rate >60 (60-); Glucose, Blood 102 mg/dL (70-99); Potassium, Blood 3.9 mmol/L (3.5-5.5); Sodium, Blood 133 mmol/L (136-145)
[2019-04-29] MEDS ORDERED: CEPH500 PO (20:16)
[2019-04-29] MEDS ORDERED: Percocet 5-3251 EACH PO (20:16)
== END 2019-04-29 20:41 | disposition home or self-care (01) ==
LOC: ER 18:53
PROVIDERS: Emergency Medicine
DX: T81.41XA Infection following a procedure, superficial incisional surgical site, initial encounter (principal); L03.116 Cellulitis of left lower limb; S81.012D Laceration without foreign body, left knee, subsequent encounter; I10 Essential (primary) hypertension; J44.9 Chronic obstructive pulmonary disease, unspecified; I73.9 Peripheral vascular disease, unspecified; N19 Unspecified kidney failure; Z86.73 Personal history of transient ischemic attack (TIA), and cerebral infarction without residual deficits; Z79.899 Other long term (current) drug therapy; Z79.01 Long term (current) use of anticoagulants; Z79.51 Long term (current) use of inhaled steroids; F17.210 Nicotine dependence, cigarettes, uncomplicated
CPT/HCPCS: 36415; 80048; 85025; 99283; A9270; A9270-GY

== ENCOUNTER 2019-05-02 02:29 | Inpatient (IN) | payer OTHER ==
[~2019-05-02] VITALS: Ht 165.1 cm; Wt 61.2 kg
[2019-05-02 03:03] LABS: BASOPHILS ABSOLUTE AUTO 0.03 K/mm3 (0.00-0.23); BASOPHILS PERCENT AUTO 0 % (0-2); EOSINOPHILS ABSOLUTE AUTO 0.05 K/mm3 (0.00-0.68); EOSINOPHILS PERCENT AUTO 1 % (0-6); Hematocrit 38.4 % (33.0-51.0); Hemoglobin 12.6 g/dL (11.5-16.0); IMMATURE GRAN ABSOLUTE AUTO 0.04 K/mm3 (0.00-0.10); IMMATURE GRAN PERCENT AUTO 0 % (0-1); LYMPHOCYTES ABSOLUTE AUTO 1.21 K/mm3 (0.84-5.20); LYMPHOCYTES PERCENT AUTO 11 % (21-46); MONOCYTES ABSOLUTE AUTO 0.62 K/mm3 (0.16-1.47); MONOCYTES PERCENT AUTO 6 % (4-13); Mean Corpuscular HGB 33.8 pg (26.0-34.0); Mean Corpuscular HGB Conc 32.8 g/dL (31.5-36.5); Mean Corpuscular Volume 103 fL (80-100); Mean Platelet Volume 11.1 fL (9.1-12.4); NEUTROPHILS ABSOLUTE AUTO 9.14 K/mm3 (1.96-9.15); NEUTROPHILS PERCENT AUTO 82 % (41-73); Platelet Count 261 K/mm3 (150-400); RDW Coefficient Variation 15.6 % (11.7-14.2); RDW Standard Deviation 59.1 fL (35.1-46.3); Red Blood Cell Count 3.73 M/mm3 (3.80-5.20); White Blood Cell Count 11.09 K/mm3 (4.00-11.30)
[2019-05-02 03:19] LABS: Alanine Aminotransfer (ALT/SGP 16 U/L (12-78); Albumin, Blood 2.4 g/dL (3.4-5.0); Albumin/Globulin Ratio 0.6 (0.8-1.8); Alk Phos 164 U/L (50-136); Anion Gap 6 mmol/L (6-16); Aspartate Aminotrans (AST/SGOT 20 U/L (12-37); Bilirubin, Total 0.3 mg/dL (0.1-1.0); Blood Urea Nitrogen 9 mg/dL (8-24); Bun/Creatinine Ratio 11.4 (12.0-20.0); CO2, Blood 25 mmol/L (21-32); Calcium, Blood 8.2 mg/dL (8.5-10.1); Chloride, Blood 107 mmol/L (98-108); Creatinine, Blood 0.79 mg/dL (0.40-1.00); Globulin, Blood 4.1 g/dL (2.2-4.0); Glomerular Filtration Rate >60 (60-); Glucose, Blood 116 mg/dL (70-99); Potassium, Blood 3.1 mmol/L (3.5-5.5); Sodium, Blood 138 mmol/L (136-145); Total Protein, Blood 6.5 g/dL (6.4-8.2)
[2019-05-02 06:28] LABS: International Normalized Ratio 0.95; Prothrombin Time Results 10.2 Sec (9.7-11.5)
--- NOTE | 2019-05-02 16:50 | NUR ---
ORTHO CONSULT: DR OZUNA IN ROOM TO SEE PATIENT. LEFT KNEE WOUND FLUSHED WITH 1LNS AND DRESSED WITH GAUZE AND KERLEX. PT ENCOURAGED BY DOCTOR TO SHOWER AND WORK WITH PT. PT MAY EAT, NO SURGICAL INTERVENTION AT THIS TIME.
--- NOTE | 2019-05-02 18:44 | NUR ---
pt has been stable this shift. pt unable to work with therapy today r/t high levels of pain. dr skaggs in to irrigate knee wound and dress it. pt is non surgical at this time. encouraged mobility as tolerated. pt has poor appetite. iv fluids infusing. pt voiding appropriate amount. attends on for occasional urgency incontinence. pt pending blood cultures. afebrile. cont iv abx. pt uses call light appropriately as needed.
[2019-05-03 04:36] LABS: BASOPHILS ABSOLUTE AUTO 0.04 K/mm3 (0.00-0.23); BASOPHILS PERCENT AUTO 1 % (0-2); EOSINOPHILS ABSOLUTE AUTO 0.09 K/mm3 (0.00-0.68); EOSINOPHILS PERCENT AUTO 1 % (0-6); Hematocrit 36.4 % (33.0-51.0); Hemoglobin 11.7 g/dL (11.5-16.0); IMMATURE GRAN ABSOLUTE AUTO 0.02 K/mm3 (0.00-0.10); IMMATURE GRAN PERCENT AUTO 0 % (0-1); LYMPHOCYTES ABSOLUTE AUTO 1.54 K/mm3 (0.84-5.20); LYMPHOCYTES PERCENT AUTO 20 % (21-46); MONOCYTES ABSOLUTE AUTO 0.53 K/mm3 (0.16-1.47); MONOCYTES PERCENT AUTO 7 % (4-13); Mean Corpuscular HGB 33.2 pg (26.0-34.0); Mean Corpuscular HGB Conc 32.1 g/dL (31.5-36.5); Mean Corpuscular Volume 103 fL (80-100); Mean Platelet Volume 11.1 fL (9.1-12.4); NEUTROPHILS ABSOLUTE AUTO 5.48 K/mm3 (1.96-9.15); NEUTROPHILS PERCENT AUTO 71 % (41-73); Platelet Count 239 K/mm3 (150-400); RDW Coefficient Variation 16.3 % (11.7-14.2); RDW Standard Deviation 60.9 fL (35.1-46.3); Red Blood Cell Count 3.52 M/mm3 (3.80-5.20)
[2019-05-03 04:51] LABS: International Normalized Ratio 1.05; Prothrombin Time Results 11.2 Sec (9.7-11.5)
[2019-05-03 05:03] LABS: Alanine Aminotransfer (ALT/SGP 14 U/L (12-78); Albumin, Blood 2.3 g/dL (3.4-5.0); Albumin/Globulin Ratio 0.6 (0.8-1.8); Alk Phos 152 U/L (50-136); Anion Gap 4 mmol/L (6-16); Aspartate Aminotrans (AST/SGOT 29 U/L (12-37); Bilirubin, Total 0.6 mg/dL (0.1-1.0); Blood Urea Nitrogen 5 mg/dL (8-24); Bun/Creatinine Ratio 7.4 (12.0-20.0); CO2, Blood 22 mmol/L (21-32); Calcium, Blood 8.2 mg/dL (8.5-10.1); Chloride, Blood 116 mmol/L (98-108); Creatinine, Blood 0.67 mg/dL (0.40-1.00); Globulin, Blood 3.7 g/dL (2.2-4.0); Glomerular Filtration Rate >60 (60-); Glucose, Blood 73 mg/dL (70-99); Sodium, Blood 142 mmol/L (136-145)
--- NOTE | 2019-05-03 06:07 | NUR ---
PT VSS, DRESSING CDI W/NO VISIBLE DRNG. L KNEE PAINFUL W/MVMT, PT REFUSING TO GET OOB OR DO ANY ROM EXERCISES, BUT DOES REPOSITION SELF IN BED. PAIN MGD PER EMAR, PT REFUSING NON PHARM METHODS. PT USING CALL LIGHT FOR ASSISTANCE, WILL CONT TO MONITOR UNTIL REP GIVEN TO ONCOMING RN.
--- NOTE | 2019-05-03 10:58 | NUR ---
RFA IV IS INTACT AND FLUSHES WELL. WILL CONTINUE TO MONITOR.
[2019-05-03 16:26] LABS: Vancomycin, Trough 17.8 ug/mL (5.0-10.0)
--- NOTE | 2019-05-03 16:28 | NUR ---
PAIN MANAGEMENT PAIN MANAGEMENT HAS BEEN AN ISSUE T/O THE DAY. PT WAS ABLE TO GO OUTSIDE THIS SHIFT. IV MEDICATION WAS DISCONTINUED BY DR. CANNON AND PO MEDICATION WAS INCREASED. WHEN PT WAS NOTIFIED THAT IV PAIN MEDICATION WAS DISCONTINUED BY DR. CANNON, SHE BECAME UPSET AND SAID DR. CANNON HAD NOT NOTIFIED HER. PT WAS EDUCATED THAT PO PAIN MEDICATION HAD BEEN INCREASED. SHE BECAME FRUSTRATED AND STARTED MOVING AROUN IN HER W/C AND SLAMMING DRAWERS. DR. CANNON WAS NOTIFIED. PERCOCET WAS INCREASED TO 10/325 AND BREAKTHROUGH DOSE OF OXY ORDERED BY DR. CANNON. ATTEMPTED TO SUGGEST ELEVATING LEG ON A PILLOW, PT DECLINED AND REPORTED THAT IS UNCOMFORTABLE. SHE HAS SAT WITH HER LEG IN A DEPENDENT POSITION T/O THE DAY. PT ALSO DECLINED USING ICE ON HER KNEE. PT OFFERED ASSISTANCE WITH W/C, SHE DECLINED ASSISTANCE FROM STAFF.
--- NOTE | 2019-05-03 16:57 | NUR ---
ATTEMPTED TO CALL PT ADVOCATE. SHE IS UNAVALIABLE AFTER 0. LABOR CONCILIATOR IVETT NOTIFIED AND REQUESTED NURSING PARQUET FLOOR LAYER'S HELPER.
--- NOTE | 2019-05-03 17:37 | NUR ---
SHIFT SUMMARY: PATIENT HAS BEEN UNAROUSABLE WHEN CALLED HIS NAME OR LIGHTLY TOUCHED. HE DOESN'T OPEN HIS EYES EITHER, AND HAS SOME MOTTLING ON HIS LEGS. HE WILL RAISE HIS EYEBROWS ON OCCASSION WHEN BEING REPOSITIONED OR WHEN A FAMILY MEMBER CALLS ON THE PHONE. WHEN HE INHALES HE USES HIS ACCESSORY MUSCLES WELL HAS SOME GARGLING. THE NURSE AND I HAVE FREQUENTLY USED SUCTION TO DECREASE THE SECREATIONS THROUGHOUT THE SHIFT. HE HAS HIS MOUTH OPEN AND MAINLY USES HIS MOUTH TO BREATH. HIS SKIN CAN SOMETIMES GET CLAMMY ESPECIALLY ON HIS HANDS. GAVE HIM A COOL WASH CLOTH WHEN THIS HAPPENED AND HE WOULD RAISE HIS EYEBROWNS AND MOAN. HIS NIECE IS AT BEDSIDE CURRENTLY AND STATED "I'M WAITING FOR THE OTHER FAMILY MEMBERS TO GET HERE AND THEN I WILL LEAVE TO GIVE THEM TIME ALONE WITH HIM". FREQUENTLY CHECKING ON THE PATIENT FOR THE CLAMMY-NESS, BECOMING TOO WARM, OR IF HE SEEMS TO BE IN PAIN RELATED TO HIS MOANING OR EYEBROWNS BEING RAISED. THERE IS A COMFORT CART IN THE PATIENTS ROOM FOR THE FAMILY MEMBERS. THE FAMILY MEMBERS HAVE ALSO BEEN CALLING THE PATIENTS PHONE IN THE ROOM TO TALK. THE NURSE AND I FREQUENTLY CHECKED HIS ROOM TO SEE IF THE PHONE HAS BEEN RINGNING AND TO HOLD THE PHONE UP TO THE PATIENTS HEAR TO LISTEN. PATIENTS FAMILY MEMBERS SEEM TO REALLY APPRECIATE IT. WILL CONTINUE TO MONITOR PATIENT.
--- NOTE | 2019-05-03 17:42 | NUR ---
PAIN PT REPORTS PAIN HAS IMPROVED SINCE SHE HAD ADDITIONAL DOSE OF OXYCODONE. WILL CONTINUE TO MONITOR.
--- NOTE | 2019-05-03 17:49 | NUR ---
SHIFT SUMMARY PAIN MANAGEMENT HAS BEEN DIFFICULT THIS SHIFT, OXYCODONE HAS BEEN INCREASED (SEE PREVIOUS NOTE). PT WORKED WITH THERAPY TODAY AND WAS ABLE TO TRANSFER TO A WHEELCHAIR. DR. CASIANO ROUNDED ON PT AND WILL TAKE HER FOR AN ANGIO TOMORROW; SHE WILL BE NPO AT MIDNIGHT. VSS. WILL MONITOR UNTIL REPORT TO ONCOMING RN.
--- NOTE | 2019-05-03 17:56 | NUR ---
SHIFT SUMMARY: PATIENT HAS BECOME VERY TEARFUL TOWARDS THE END OF THE SHIFT WHEN LEARNING THAT SHE WILL NO LONGER BE ON DILAUDID FOR HER PAIN MEDICATION. SHE DOES HAVE PERCOCET TO HELP WITH HER PAIN, BUT SHE STATED "THE DILAUDID HELPS BETTER FOR MY PAIN!". SHE DOESN'T SEEM TO WANT TO TALK TO ANYONE CURRENTLY. DOCTOR WAS NOTIFIED AND HE DIDN'T ORDER THE DILAUDID BUT HE INCREASED THE PERCOCET ORDER FOR HER. HER VITALS HAVE BEEN NORMAL THROUGHOUT SHIFT. SHE IS CURRENTLY RECIEVING HEPARIN WITHOUT COMPLICATIONS OR ADVERSE SIDE EFFECTS. SHE MAINLY COMPLAINS ABOUT PAIN IN HER LEFT KNEE. WE HAVE GIVEN HER THE EMR MEDICATION. SHE IS ALERT AND ORIENTED X4. SHE HAD A PT/OT CONSULT EARLIER TODAY. WILL CONTINUE TO MONITOR.
--- NOTE | 2019-05-03 18:47 | NUR ---
PT ASKING TO GO OUTSIDE TO SMOKE. PT EDUCATED THAT IT IS UNSAFE FOR HER TO BE DISCONNECTED FROM HER HEPARIN DRIP, AND DR. CASIANO SAID SHE CANNOT BE DISCONNECTED. NICOTINE PATCH WAS OFFERED, PT IS DECLINED. PT IS UNHAPPY SHE IS UNABLE TO GO OUTSIDE. IV POLE CANNOT BE TAKEN OUTSIDE.
--- NOTE | 2019-05-04 05:25 | NUR ---
SHIFT SUMMARY: PT HAS BEEN NPO SINCE MIDNIGHT FOR SCHEDULED ANGIOGRAM TODAY. PAIN BEING MANAGED WITH PERCOCET PER EMAR. PT ALSO GIVEN FLEXIRIL. HEP GTT INFUSING PER EMAR WITHOUT ANY NEW TITRATING ORDERS. PT VOIDING IN BEDSIDE COMMODE AND TRANSFERING WITH SBA. ANXIOUS AT TIMES. COOPERATIVE WITH CARE AND PLEASANT THIS SHIFT.
--- NOTE | 2019-05-04 13:38 | NUR ---
PT TAKEN TO [facility] FOR ANGIOPLASTY PT A&O TAKEN. ON RA VIA W/C BY [facility] NURSE FOR PROCEDURE. PT TOOK PURSE WITH HER TO PROCEDURE, OTHER BELONGINGS SENT TO ICU 15. REPORT GIVEN TO LEONEL PEÑA.
--- NOTE | 2019-05-04 15:50 | NUR ---
TRANSFER TO ICU PT INTO ROOM ICU 3 POST PROCEDURE FROM [facility]. AWAKE, DENIES PAIN. OREINTED TO CALL LIGHT AND ROOM LAYOUT. RIGHT FEM FEM BYPASS GRAFT SHEATH SITE WITH HEPARIN INFUSING AT 6ML/HR, TPA INFUSING AT 1MG/HR. LEFT RADIAL SHEATH SITE WITH TPA INFUSING AT 1MG/HR. HEPARIN INFUSING INTO LEFT 18G PIV TO LEFT FA. LEFT FOOT WITH ABSENT PEDAL PULSES TO DOPPLER, FAINT TO RIGHT FOOT. LEFT FOOT COLD, POOR CAP REFILL. BOTH SHEATH SITES APEAR STABLE, WELL SECURED, DRESSINGS INTACT. NO SIGN OF DISCOLORATION OR OOZING.
--- NOTE | 2019-05-04 15:50 | NUR ---
TRANSFER TO ICU PATIENT ARRIVES TO ROOM ICU 3 FROM [facility] POST PROCEDURE. PLAN TO RETURN TOP CHARGING MACHINE OPERATOR IN AM. L FEM FEM GRAFT ANGIO SITE AND LEFT RADIAL GRAFT SITE WITH HEPARIN INFUSING AT 6ML/HR ALONG WITH TPA AT 1MG/HR. PT DEIES ANY PAIN, ALOUGH REPORT DISCOMFORT TO BOTH LEFT ADIAL SITE AND LEFT LEG SITE WITH MOEVMENT OF PRESSUE. BOTH GROIN SITES WELL STABALIZED WITH OCCULSIEV DRESSING IN PLACE INTACT. SOFT. NO OOZING OR BLEEDING.
--- NOTE | 2019-05-04 16:30 | NUR ---
INITIAL ASSESSMENT PATIENT ALERT AND ORIENTED X 4. PATIENT AFEBRILE. PATIENT STATES SHE HAS MILD PAIN IN HER LEFT WRIST FROM SHEATH. PATIENT SATTING 90% AND GREATER ON RA TO 2 L NC. PATIENT IN SR, HR IN THE 80S. BP STABLE. GI AND WNL PER PATIENT. PATIENT ON CLEAR LIQUID DIET UNTIL NPO AT 0000. ATTENDS IN PLACE. DRESSING C/D/I TO L KNEE. SHEATH TO L RADIAL. SHEATH TO RIGHT FEM-FEM BYPASS GRAFT. BOTH SITES WNL- NO BLEEDING, BRUISING, HEMATOMA NOTED. RADIAL PULSES STRONG. PULSES IN R FOOT DOPPLERED. PULSES ABSENT TO L FOOT. CAP REFILL OVER 3 SECONDS IN L FOOT; LESS THAN 2 SECONDS IN R FOOT. R FOOT COOL AND L FOOT VERY COLD AND DUSKY. HEPARIN INFUSING AT 6 MLS/ HOUR INTO PERIPHERAL IV AND R FEM BYPASS GRAFT SHEATH. TPA INFUSING AT 1 MG/ HOUR INTO R FEM BYPASS GRAFT SHEATH AND L RADIAL SHEATH. NS INFUSING AT 100 MLS/ HOUR. MEPILEX TO COCCYX. BED LOW, CALL LIGHT IN REACH. PATIENT ORIENTED TO ROOM. WILL CONTINUE TO MONITOR PATIENT FREQUENTLY THROUGHOUT SHIFT.
--- NOTE | 2019-05-04 18:06 | NUR ---
SHIFT SUMMARY PATIENT MEDICATED WITH HOME FLEXERIL DO TO COMPLAINTS OF SOME "MUSCLE TWITCHING" TO LEFT LEG. CONTINUES TO REPORT TENDERNESS TO LEFT RADIAL SITE. BOTH SHEATH SITES STABLE WITHOUT EVIDENCE OF ISSUES. PATIENT APPROPRIATLY CALLING FOR ASSISANCE FOR TOLIETING AND ASSISTANCE. NO FURTHER CHANGES FROM TRANSFER TO ICU.
--- NOTE | 2019-05-04 18:24 | NUR ---
SHIFT SUMMARY PATIENT HAS NAPPED ON AND OFF SINCE ARRIVED TO ICU FROM DIGITAL MARKETING PROGRAM MANAGER. PATIENT REMAINS ALERT AND ORIENTED, AFEBRILE. PATIENT SATTING 90% AND GREATER ON 3 L NC. PATIENT REPORTS SHE WEARS 3 L NC AT HOME. PATIENT IN SR, HR 60S TO 80S. BP STABLE. GI AND WNL. PATIENT HAS VOIDED SINCE COMING TO UNIT. TPA REMAINS INFUSING INTO L RADIAL SHEATH AND R FEM SHEATH AT 1 MCG/ HOUR; TO BE DECREASED TO 0.5 MG/ HOUR AT 2130 (6 HOURS AFTER STARTED). HEPARIN REMAINS INFUSING AT 6 MLS/ HOUR INTO PERIPHERAL SHEATH AND R FEM SHEATH. R FOOT PULSES REMAIN DOPPLER. L FOOT PULSES REMAIN ABSENT. BOTH SHEATH SITES REMAIN WNL- NO BLEEDING, BRUISING OR HEMATOMA NOTED. NS INFUSING AT 100 MLS/ HOUR. PATIENT ON CLEAR LIQUID DIET UNTIL NPO AT 0000. NO COMPLAINTS AT THIS TIME. BED LOW, CALL LIGHT IN REACH. REPORT WILL BE GIVEN TO ONCOMING DIRECTOR OF SALES AND MARKETING NURSE SHORTLY.
--- NOTE | 2019-05-04 19:45 | NUR ---
ASSUMED CARE BEDSIDE REPORT RECIEVED. PT IS SITTING UP IN BED AWAKE, ALERT, AND ORIENTED. PT IS COMPLAINING OF SEVERE PAIN TO LEFT KNEE AND LEFT RADIAL SHEATH SITE. VITAL SIGNS STABLE. PT ON 2L O2 NC. NS INFUSING AT 100 ML/HR. PT WITH LEFT RADIAL SHEATH IN PLACE WITH TPA INFUSING AT 1 MG/HR AND HEPARIN INFUSING AT 6 ML/HR THROUGH PERIPHERAL IV IN LFA. ARM BOARD IN PLACE, SITE IS SOFT, NO HEMATOMA. RIGHT GROIN SHEATH IN PLACE WITH TPA INFUSING AT 1 MG/HR AND HEPARIN AT 6 ML/HR. SOME OOZING NOTED TO SITE, SOFT, NONTENDER. PT ASSISTED ONTO BEDPAN AT THIS TIME. LEFT LOWER EXTREMITY IS COOL AND DUSKY. PULSES ABSENT. RIGHT LOWER EXTREMITY IS PINK AND WARM, PULSES BY DOPPLER. NO FAMILY AT BEDSIDE. PT ON PHONE WITH FAMILY AND APPEARS AGITATED WHEN TALKING. WILL CONTINUE TO MONITOR.
[2019-05-05 04:30] LABS: Creatinine, Blood 0.75 mg/dL (0.40-1.00); Vancomycin, Random 17.8 ug/mL
--- NOTE | 2019-05-05 05:41 | NUR ---
SHIFT SUMMARY NO ACUTE CHANGES THIS SHIFT. PT HAS REMAINED AWAKE THROUGHOUT MOST OF THE SHIFT. PT IS ALERT AND ORIENTED. PT HAS COMPLAINED OF PAIN THROUGHOUT THE SHIFT AND NAUSEA AT TIMES WITH ONE EPISODE OF VOMITING. PT MED PER EMAR FOR PAIN AND NAUSEA. VITAL SIGNS HAVE REMAINED STABLE, PT ON 2L O2 NC. PT USED BEDPAN TO VOID WELL THIS SHIFT. PT REPOSITIONS SELF IN BED INDEPENDENTLY. LEFT RADIAL SHEATH REMAINS C/D/I WITH TPA INFUSING AT 0.5 MG/HR, AND HEPARIN AT 6 ML/HR THROUGH LFA IV. RIGHT GROIN SHEATH REMAINS C/D/I WITH SMALL AMOUNT OF OOZING AT THE SITE WITH TPA INFUSING AT 0.5 MG/HR AND HEPARIN AT 6 ML/HR. LEFT LOWER EXTREMITY WITH DOPPLER PULSES PRESENT THIS AM AND IS PINK AND WARM. WILL CONTINUE TO MONITOR AND REPORT OFF TO ONCOMING RN.
--- NOTE | 2019-05-05 08:00 | NUR ---
INITIAL ASSESSMENT PATIENT ALERT AND ORIENTED X 4, ALTHOUGH IS FORGETFUL AT TIMES. PATIENT AFEBRILE. PATIENT STATES SHE HAS CHRONIC N/T IN HER FEET. PATIENT GIVEN PRN TYLENOL FOR COMPLAINT OF DISCOMFORT IN HER LEFT WRIST. PATIENT ABLE TO REPOSITION SELF IN BED. PATIENT WEARS 3 L NC AT HOME. PATIENT SATTING 90% AND GREATER ON 2 L NC. PATIENT IN SR TO ST WITH OCCASIONAL PACS. HR 90S TO LOW 100S. BP STABLE. PATIENT NPO TO RETURN TO BIT BENDER THIS AM. PATIENT STATES LAST BM WAS 5 DAYS AGO. WNL. PATIENT BEING ASSISTED WITH USE OF BED BLANK. PATIENT HAS SCATTERED BRUISES. COCCYX REDDENED- MEPILEX DRESSING C/D/I. L RADIAL SHEATH IN PLACE. METAL PART OF SHEATH DISTAL TO INSERTION SITE LEAKING/ OOZING. DR. CASIANO NOTIFIED AND HE STATED TO TURN OFF TPA TO THAT SITE AND DISCONNECT FOR NOW. ORDERS COMPLETE. INSERTION SITE REMAINS WNL- NO BLEEDING, BRUISING, HEMATOMA NOTED. HEPARIN INFUSING AT 6 MLS/ HOUR INTO PERIPHERAL IV AND R FEM BYPASS GRAFT SHEATH. TPA INFUSING INTO R FEM BYPASS GRAFT SHEATH AT 0.5 MG/ HOUR. SHEATH INSERTION SITE OOZING SLIGHTLY. NO HEMATOMA OR BRUISING NOTED. SITE SOFT TO PALPATION. PULSES DOPPLERED IN BOTH FEET. L FOOT WARM WITH CAP REFILL LESS THAN 3 SECONDS THIS AM. BED LOW, CALL LIGHT IN REACH. WILL CONTINUE TO MONITOR PATIENT FREQUENTLY THROUGHOUT SHIFT.
--- NOTE | 2019-05-05 10:02 | NUR ---
PATIENT NOTED TO BE SLEEPING VERY SOUNDLY IN BED. PATIENT WOKE AFTER SEVERAL VERBAL ATTEMPTS. PATIENT NOTED TO HAVE PURSE OPEN ON BED AND PRECRIPTION BOTTLE IN PURSE. ALSO NOTED TO HAVE METAL BOX. PATIENT ASKED IF SHE COULD REMOVE PILL BOTTLE FROM PURSE. PATIENT GAVE PILL BOTTLE FOR NURSE. PATIENT STATED IT WAS OXYCODONE. 1 PILL IN BOTTLE. PATIENT STATED TOBACCO IN METAL BOX. PATIENT ASKED IF SHE TOOK ANY OF THE OXYCODONE AND PATIENT STATED SHE DID NOT. BOX OF TOBACCO AND OXYCODONE PLACED OUT OF REACH IN ROOM IN LOCKED AREA. PATIENT REQUESTS TO KEEP THE REST OF HER THINGS IN HER PURSE AT HER BEDSIDE.
--- NOTE | 2019-05-05 12:00 | NUR ---
DR. ÁLVAREZ ASKED IF HE WOULD LIKE LABS ON THE PATIENT FOR TODAY. NO ORDER RECEIVED.
--- NOTE | 2019-05-05 12:09 | NUR ---
PATIENT REMAINS AFEBRILE. PATIENT IRRITABLE AT TIMES, BUT IS CURRENTLY CALM AND PLEASANT. PATIENT SATTING 90% AND GREATER ON RA. PATIENT IN SR TO ST WITH OCCASIONAL PACS. HR 60S TO 100. BP STABLE. BP SOFT 2 X WHEN SLEEPING SOUNDLY. L RADIAL SITE, R FEM SITE AND BLES REMAIN UNCHANGED FROM INITIAL ASSESSMENT. PATIENT GIVEN PRN OXYCODONE FOR COMPLAINT OF PAIN IN L LEG. NO OTHER ACUTE CHANGES TO NOTE ON AT THIS TIME. PATIENT HAS VISITOR AT BEDSIDE. WILL CONTINUE TO MONITOR.
--- NOTE | 2019-05-05 15:57 | NUR ---
OFFICE COORDINATOR RNS TOOK PATIENT TO OFFICE COORDINATOR.
--- NOTE | 2019-05-05 18:53 | NUR ---
PATIENT ARRIVED BACK FROM SCALEMAKER AT 182. PATIENT HAS NO COMPLAINTS OF PAIN. PATIENT SATTING 90% AND GREATER ON 2 L NC. PATIENT IN SR, HR 80S TO 90S. BP STABLE. PATIENT BALLOONED IN 2 AREAS. MANUAL PRESSURE HELD IN SCALEMAKER TO R FEM SITE, TEGADERM IN PLACE. SITE WNL- NO BLEEDING, BRUISING, OR HEMATOMA NOTED. SITE SOFT TO PALPATION. L FOOT CAP REFILL LESS THAN 3 SECONDS, COOL TO TOUCH, TIBIAL PULSE DOPPLER, PEDAL PULSE ABSENT, HOWEVER PEDAL PULSE BARELY AUDIBLE WITH DOPPLER ALL DAY SHIFT. TR BAND X 2 ON LEFT RADIAL SITE. DISTAL TR BAND HAS 12 CC AIR INSTILLED. PROXIMAL TR BAND HAS 13 AIR INSTILLED. AIR INSTILLED AT 1800 PER SCALEMAKER RNS. PATIENT CAME BACK SALINE LOCKED. DR. CASIANO STATED TO START HEPARIN, WITH PHARMACY MANAGING, AT 1999 WHEN START DEFLATING TR BANDS. DR. CASIANO STATED TO CALL HIM BACK IF TR BAND SITES START TO BLEED WHEN DEFLATING. BED LOW, CALL LIGHT IN REACH.
--- NOTE | 2019-05-05 19:00 | NUR ---
SHIFT SUMMARY PATIENT REMAINED ALERT AND ORIENTED X 4, FORGETFUL AT TIMES. PATIENT MOSTLY PLEASANT AND COOPERATIVE, BUT IRRITABLE A COUPLE OF TIMES. PATIENT REMAINED AFEBRILE. PATIENT RECEIVED PRN PAIN MEDICATIONS FOR COMPLAINTS OF PAIN IN LEFT WRIST AND LEFT LEG. PATIENT REPORTED CONTINUED N/T TO BILAT FEET. PATIENT BACK FROM REGIONAL MARKETING DIRECTOR AT 1822. PATIENT AWARE THAT SHE IS TO REMAIN IN SUPINE POSITION WITHOUT LIFTING HEAD OR LEGS. PATIENT BALLOONED IN 2 PLACES. PATIENT HAS [address] TO LEFT RADIAL SITE. DISTAL BALLOON HAS 12 CC AIR INSTILLED AND PROXIMAL BALLOON HAS 13 CC AIR INSTILLED. TR BANDS ABLE TO BEGIN BEING DEFLATED AROUND 1999, AT WHICH TIME HEPARIN DRIP IS ALSO TO BEGIN PER DR. CASIANO. L RADIAL SITE WNL- NO BLEEDING, BRUISING, OR HEMATOMA NOTED. L HAND COOL TO TOUCH, CAP REFILL LESS THAN 3 SECONDS. O2 PROBE ON L POINTER FINGER. R FEM ACCESS SITE HAS TEGADERM IN PLACE; WNL; NO BLEEDING, BRUISING, OR HEMATOMA NOTED. SITE SOFT TO PALPATION. LEFT FOOT COOL TO TOUCH, CAP REFILL UNDER 3 SECONDS. L TIBIAL PULSE DOPPLER, R PEDAL PULSE ABSENT, HOWEVER BARELY AUDIBLE ON DOPPLER ALL DAY BEFORE GOING BACK TO [employer]. PATIENT SATTED 90% AND GREATER ON RA TO 2 L NC T/O DAY. PATIENT REPORTS SHE WEARS 3 L NC AT HOME ONLY AT NIGHTS. PATIENT REMAINED IN SR TO ST WITH OCCASIONAL PACS. HR 60S TO LOW 100S. BP REMAINED STABLE. NO BM THIS SHIFT. PATIENT NPO UP UNTIL PROCEDURE; IS NOW REGULAR DIET. WNL; ADEQUATE OUTPUT. WET TO DRY DRESSING PERFORMED BY RN THIS MORNING AND THEN LATER BY DR. GEE'S PA. ORDERS RECEIVED TO CHANGE Q SHIFT. PICS IN PATIENT CHART OF KNEE. IVS CURRENTLY SALINE LOCKED. PATIENT HAS NO COMPLAINTS AT THIS TIME. BED LOW, CALL LIGHT IN REACH. REPORT GIVEN TO ONCOMING STUDENT AFFAIRS DEAN RN.
--- NOTE | 2019-05-06 04:37 | NUR ---
SHIFT SUMMARY NO ACUTE CHANGES THIS SHIFT. PT HAS REMAINED ALERT AND ORIENTED WHEN AWAKE. PT SLEEPING FOR SOME PERIODS OF TIME. PT HAS COMPLAINED OF PAIN TO LEFT KNEE THROUGHOUT THE SHIFT. PT MED PER EMAR. VITAL SIGNS HAVE REMAINED STABLE. PT ON 2L O2 NC. PT ONTO BEDPAN TO VOID WELL. LEFT RADIAL ACCESS SITE IS C/D/I WITH TR BANDS REMOVED AND OPSITE IN PLACE WITH ARMBOARD IMMOBILIZER. RIGHT GROIN SITE WITHOUT ANY ADDITIONAL BLEEDING SINCE BEGINNING OF SHIFT. HEMATOMA REMAINS UNCHANGED 3-5 CM. DRESSING C/D/I. HEPARIN GTT INFUSING AT 15 UNITS/KG/HR PER PHARMACY. NO FAMILY AT BEDSIDE. SEE INITIAL SHIFT ASSESSMENT FOR MORE BEGINNING OF SHIFT INFO. WILL CONTINUE TO MONITOR AND REPORT OFF TO ONCOMING RN.
[2019-05-06 07:29] LABS: Hematocrit 36.8 % (33.0-51.0); Hemoglobin 11.8 g/dL (11.5-16.0); Mean Corpuscular HGB 33.1 pg (26.0-34.0); Mean Corpuscular HGB Conc 32.1 g/dL (31.5-36.5); Mean Corpuscular Volume 103 fL (80-100); Mean Platelet Volume 11.1 fL (9.1-12.4); Platelet Count 230 K/mm3 (150-400); RDW Coefficient Variation 16.3 % (11.7-14.2); RDW Standard Deviation 61.4 fL (35.1-46.3); Red Blood Cell Count 3.56 M/mm3 (3.80-5.20); White Blood Cell Count 5.65 K/mm3 (4.00-11.30)
[2019-05-06 07:50] LABS: Anion Gap 6 mmol/L (6-16); Blood Urea Nitrogen 3 mg/dL (8-24); Bun/Creatinine Ratio 3.7 (12.0-20.0); CO2, Blood 23 mmol/L (21-32); Calcium, Blood 7.9 mg/dL (8.5-10.1); Chloride, Blood 112 mmol/L (98-108); Creatinine, Blood 0.81 mg/dL (0.40-1.00); Glomerular Filtration Rate >60 (60-); Glucose, Blood 80 mg/dL (70-99); Potassium, Blood 3.4 mmol/L (3.5-5.5); Sodium, Blood 141 mmol/L (136-145); Vancomycin, Trough 13.8 ug/mL (5.0-10.0)
--- NOTE | 2019-05-06 08:00 | NUR ---
ASSUMED CARE: REPORT RECEIVED FROM RUBÉN Daniels RN. ASSUMED CARE OF THIS PT AT APPROX [phone]. ON ASSESSMENT, THE PT IS AWAKE, A&O. LS ARE DIM IN BASES, PT ON 2L NC W/ O2 SATS > 92%. MONITOR SHOWS SR-ST W/ HR 90-110s. PT HAS NO CURRENT GI/ COMPLAINTS. SKIN OVERALL CDI; PUNCTURE SITES S/P ANGIOGRAM TO R FEMORAL & L RADIAL ARE WNL. L KNEE W/ WET-TO-DRY DRESSING CDI, DRESSING CHANGE DUE DAILY. WILL CONTINUE TO MONITOR & UPDATE NEEDED.
--- NOTE | 2019-05-06 09:45 | NUR ---
DR ÁLVAREZ: PROVIDER AT BEDSIDE. STS OKAY TO MAKE PT MED NO TELE STATUS. HE WOULD LIKE THIS RN TO NOTIFY PHARMACY THAT HEPARIN WILL BE D/C'd & XARELTO IS TO BE STARTED. GOAL IS TO AMBULATE PT TODAY, IF PT IS UNABLE, PLEASE ORDER PHYSICAL THERAPY EVAL & TX.
--- NOTE | 2019-05-06 12:42 | NUR ---
TRANSFER TO MEDICAL FLOOR: REPORT HAS BEEN GIVEN TO YAW Chandler RN TO ASSUME CARE. PT, ALL BELONGINGS, CHART & MEDS HAVE BEEN TAKEN TO ROOM 336 W/ PT. TIME OF TX IS 1255.
--- NOTE | 2019-05-06 17:50 | NUR ---
SHIFT SUMMARY PT ALERT AND ORIENTED. VS STABLE. PT USING 2L NC NEEDED. PT ABLE TO AMBULATE IN ROOM INDEPENDENTLY WITH HOME WC IF NEEDED. PT MEDICATED FOR PAIN NEEDED. DR. EDWARD IN THIS AFTERNOON WITH PLANS FOR DEBRIDEMENT IN THE AM. PT TO BE NPO AT MIDNIGHT. DR. EDWARD CHANGED DRESSING TO LEFT KNEE. RIGHT RADIAL SITE FREE FROM ANY BLEEDING, BRUISING, OR HEMATOMA. RIGHT GROIN SITE FREE FROM ANY BLEEDING OR BRUISING. HEMATOMA UNCHANGED SINCE INITIAL ASSESSMENT. WILL CONITNUE TO MONITOR AND REPORT TO ONCOMING RN. CALL LIGHT IN REACH.
--- NOTE | 2019-05-07 05:27 | NUR ---
SHIFT SUMMARY PT [id number], VSS. PT REPORTED PAIN MULTIPLE TIMES DURING SHIFT, MEDICATED PER EMAR. PT IND IN ROOM MOVING FREQUENTLY. REPORTED SOME BURNING PAIN IN LEFT KNEE. OFFERED ICE PACK AND REPOSITIONING OF BANDAGE. STATED RELIEF. NPO SINCE MIDNIGHT FOR PLANNED PROCEDURE TODAY.
--- NOTE | 2019-05-07 20:17 | NUR ---
SHIFT SUMMARY- PT ALERT AND ORIENTED INDEPENDENT IN THE MARCANO T/O THE DAY. PT NPO T/O THE MORNING, VERBAL DIET ORDER RECIEVED FROM DR LOW. DR REQUESTED WOUND VAC AT THE BEDSIDE, WOUND VAC IS AT THE BEDSIDE NOT YET PLACED. PT PAIN SEEMS WELL MANAGED WITH THE PERCOCET AND FLEXERIL. SURGICAL I&D NO LONGER NEEDED PER , WOUND LOOKS ALOT BETTER TODAY.
--- NOTE | 2019-05-08 07:23 | NUR ---
SHIFT SUMMARY PATIENT ALERT AND ORIENTED. HAS BEEN HAVING PAIN LEVELS BETWEEN 7-8 IN HER LEFT KNEE WHICH WAS MEDICATED PER EMAR. IV ROMOVED FROM RIGHT WRIST DUE TO IT LEAKING. IV IN LEFT WRIST PATENT AND FLUSHED. BED IN LOWEST POSITION WITH WHEELS LOCKED. CALL LIGHT WITHIN REACH. REPORT GIVEN TO ONCOMING RN.
[2019-05-08 09:14] LABS: Hematocrit 32.5 % (33.0-51.0); Hemoglobin 10.2 g/dL (11.5-16.0)
[2019-05-08 09:39] LABS: Anion Gap 6 mmol/L (6-16); Blood Urea Nitrogen 4 mg/dL (8-24); CO2, Blood 21 mmol/L (21-32); Calcium, Blood 8.2 mg/dL (8.5-10.1); Chloride, Blood 111 mmol/L (98-108); Glomerular Filtration Rate >60 (60-); Glucose, Blood 70 mg/dL (70-99); Potassium, Blood 3.7 mmol/L (3.5-5.5); Sodium, Blood 138 mmol/L (136-145)
--- NOTE | 2019-05-08 17:13 | NUR ---
PT HAS BEEN AOX4 AND COOPERATIVE OF CARE. PT CONTINUES TO HAVE R KNEE PAIN AND BANDAGE WAS CHECKED AND CHANGED BY DR LOW. PAIN TREATED PER EMAR. PT HAS BEEN INDEPENDENT IN ROOM AND MOVING AROUND WITH WHEEL CHAIR. PT CALLS APPROPRIATELY. NO DISTRESS NOTED WILL CONTINUE TO MONITOR.
--- NOTE | 2019-05-09 06:56 | NUR ---
SHIFT SUMMARY PATIENT ALERT AND ORIENTED. HAD PAIN IN HER LEFT KNEE RANGING FROM 7-9/10. PATIENT MEDICATED PER EMAR. DRESSING ON L KNEE CHANGED THE PREVIOUS ONE HAD BECOME SOILED AND FELL OFF. PATIENT HAS BEEN ATTEMPTING TO STAND AND WALK MORE FREQUENTLY. BED IN LOWEST POSITION WITH WHEELS LOCKED. CALL LIGHT WITHIN REACH. REPORT GIVEN TO ONCOMING RN.
[2019-05-09] MEDS ORDERED: PERCOCET 10-321 EACH PO (15:38)
[2019-05-09] MEDS ORDERED: XARELTO20 MG PO (15:42)
[2019-05-09] MEDS ORDERED: Doxycycline Mo100 M1 PO (15:43)
--- NOTE | 2019-05-09 16:56 | NUR ---
DISCHARGE DR EDWARD IN TO SEE PT THIS AM, ASSESS L KNEE WOUND & CHANGE DRESSING. STATE OK FOR PT TO D/C HOME TODAY & F/U WITH HIM IN 2 WKS. WOUND CARE & DRSG CHANGE INSTRUCT PROVIDED BY , WOUND CARE SUPPLIES PROVIDED FOR DAILY DRSG CHANGES. DR ÁLVAREZ IN TO SEE HER, PROVIDE D/C ORDERS. IV D/C INTACT. NEW SCRIPTS FAXED TO [facility]REQUEST. D/C INSTRUCT PROVIDED w EMPHASIS ON ORTHO F/U-SCHEDULED APPT. & FINISHING ANTIBX. HARD COPY PAIN MED SCRIPT GIVEN TO PT. PAIN MED SHE BROUGHT FROM HOME RETRIEVED FROM PHARM & RETURNED TO PT. ADVOCATE PROVIDE SWEATER FOR RIDE HOME. PT GATHER BELONGINGS, TRANSPORTED VIA HER PERSONAL W/C FROM HOSP FOR TRANPORT HOME BY HER MOTHER. SHE IS PLEASANT, APPRECIATIVE. VSS.
== END 2019-05-09 16:04 | disposition home health service (06) | DRG 253 ==
LOC: ER 02:29 → MEDS 02:30 → SURS 02:30 → ER 06:04 → MEDS 06:04 → ER 06:43 → SURS 07:00 → MEDS 07:00 → SURS 05-04 09:43 → ICUE 05-04 09:43 → SURS 05-04 09:44 → ICUE 05-04 14:35 → MEDS 05-06 13:15
PROVIDERS: Emergency Medicine; Internal Medicine; Pharmacist; ADMIT Internal Medicine
PROC: 047K3ZZ Dilation of Right Femoral Artery, Percutaneous Approach (ICD-10-PCS; principal; 2019-05-04)
PROC: 047L3ZZ Dilation of Left Femoral Artery, Percutaneous Approach (ICD-10-PCS; 2019-05-04)
PROC: 047L3Z1 Dilation of Left Femoral Artery using Drug-Coated Balloon, Percutaneous Approach (ICD-10-PCS; 2019-05-04)
PROC: 3E05317 Introduction of Other Thrombolytic into Peripheral Artery, Percutaneous Approach (ICD-10-PCS; 2019-05-04)
PROC: B41G1ZZ Fluoroscopy of Left Lower Extremity Arteries using Low Osmolar Contrast (ICD-10-PCS; 2019-05-05)
DX: I70.201 Unspecified atherosclerosis of native arteries of extremities, right leg (principal); L03.116 Cellulitis of left lower limb; I10 Essential (primary) hypertension; J44.9 Chronic obstructive pulmonary disease, unspecified; K21.9 Gastro-esophageal reflux disease without esophagitis; I77.1 Stricture of artery; I70.1 Atherosclerosis of renal artery; I70.0 Atherosclerosis of aorta
CPT/HCPCS: 36415; 37211; 37214; 37220; 37224; 73701; 75625; 75710; 75716; 75774; 76937; 80048; 80053; 80202; 82565; 83605; 84145; 85014; 85018; 85025; 85027; 85347; 85384; 85610; 85651; 85730; 87040; 94640; 94760; 96361; 96365; 96366; 96367; 96372; 96375; 96376; 97116; 97162; 97166; 97530; 97535; 99152; 99153; 99285-25; A9270; C1725; C1751; C1769; C1887; C1894; C2623; G0378; J0696; J1170; J1644; J2250; J2405; J2997; J3010; J3370; J7030; J7040; J7050; Q9967

== ENCOUNTER → 2019-05-18 | Outpatient (CLI) | payer OTHER ==
[~2019-05-18] MED LIST changes: +Doxycycline Mo100 M1 PO; +PERCOCET 10-321 EACH PO; +XARELTO20 MG PO
[2019-05-18 16:57] LABS: BASOPHILS ABSOLUTE AUTO 0.08 K/mm3 (0.00-0.23); BASOPHILS PERCENT AUTO 1 % (0-2); EOSINOPHILS ABSOLUTE AUTO 0.11 K/mm3 (0.00-0.68); EOSINOPHILS PERCENT AUTO 1 % (0-6); Hemoglobin 12.1 g/dL (11.5-16.0); IMMATURE GRAN ABSOLUTE AUTO 0.23 K/mm3 (0.00-0.10); IMMATURE GRAN PERCENT AUTO 3 % (0-1); LYMPHOCYTES ABSOLUTE AUTO 1.68 K/mm3 (0.84-5.20); LYMPHOCYTES PERCENT AUTO 18 % (21-46); MONOCYTES ABSOLUTE AUTO 0.52 K/mm3 (0.16-1.47); MONOCYTES PERCENT AUTO 6 % (4-13); Mean Corpuscular HGB 33.1 pg (26.0-34.0); Mean Platelet Volume 10.5 fL (9.1-12.4); NEUTROPHILS ABSOLUTE AUTO 6.65 K/mm3 (1.96-9.15); NEUTROPHILS PERCENT AUTO 72 % (41-73); Platelet Count 486 K/mm3 (150-400); RDW Coefficient Variation 17.3 % (11.7-14.2); RDW Standard Deviation 67.7 fL (35.1-46.3); Red Blood Cell Count 3.66 M/mm3 (3.80-5.20); White Blood Cell Count 9.27 K/mm3 (4.00-11.30)
[2019-05-18 16:59] LABS: Mean Corpuscular Volume 107 fL (80-100)
[2019-05-18 17:19] LABS: Albumin, Blood 2.6 g/dL (3.4-5.0); Anion Gap 6 mmol/L (6-16); Blood Urea Nitrogen 10 mg/dL (8-24); Bun/Creatinine Ratio 12.9 (12.0-20.0); CO2, Blood 24 mmol/L (21-32); Calcium, Blood 9.1 mg/dL (8.5-10.1); Chloride, Blood 106 mmol/L (98-108); Creatinine, Blood 0.78 mg/dL (0.40-1.00); Glomerular Filtration Rate >60 (60-); Glucose, Blood 73 mg/dL (70-99); Phosphorus, Blood 4.4 mg/dL (2.5-4.9); Potassium, Blood 4.1 mmol/L (3.5-5.5); Sodium, Blood 136 mmol/L (136-145)
== END | disposition home or self-care (01) ==
LOC: LAB HH 16:16 → LAB 16:16
PROVIDERS: Family Medicine
DX: S81.002A Unspecified open wound, left knee, initial encounter (principal); M00.9 Pyogenic arthritis, unspecified
CPT/HCPCS: 80069; 85025

== ENCOUNTER → 2019-05-25 | Outpatient (CLI) | payer OTHER ==
[2019-05-25 17:54] LABS: BASOPHILS ABSOLUTE AUTO 0.07 K/mm3 (0.00-0.23); BASOPHILS PERCENT AUTO 1 % (0-2); EOSINOPHILS ABSOLUTE AUTO 0.03 K/mm3 (0.00-0.68); EOSINOPHILS PERCENT AUTO 0 % (0-6); Hematocrit 35.8 % (33.0-51.0); Hemoglobin 11.2 g/dL (11.5-16.0); IMMATURE GRAN ABSOLUTE AUTO 0.05 K/mm3 (0.00-0.10); IMMATURE GRAN PERCENT AUTO 1 % (0-1); LYMPHOCYTES ABSOLUTE AUTO 1.61 K/mm3 (0.84-5.20); LYMPHOCYTES PERCENT AUTO 24 % (21-46); MONOCYTES ABSOLUTE AUTO 0.51 K/mm3 (0.16-1.47); MONOCYTES PERCENT AUTO 8 % (4-13); Mean Corpuscular HGB 32.7 pg (26.0-34.0); Mean Corpuscular HGB Conc 31.3 g/dL (31.5-36.5); Mean Corpuscular Volume 105 fL (80-100); NEUTROPHILS ABSOLUTE AUTO 4.41 K/mm3 (1.96-9.15); NEUTROPHILS PERCENT AUTO 66 % (41-73); Platelet Count 349 K/mm3 (150-400); RDW Coefficient Variation 17.2 % (11.7-14.2); RDW Standard Deviation 65.6 fL (35.1-46.3); Red Blood Cell Count 3.42 M/mm3 (3.80-5.20); White Blood Cell Count 6.68 K/mm3 (4.00-11.30)
== END | disposition home or self-care (01) ==
LOC: LAB SHORT 16:52 → LAB 16:52
PROVIDERS: Family Medicine
DX: S81.002A Unspecified open wound, left knee, initial encounter (principal); M00.9 Pyogenic arthritis, unspecified
CPT/HCPCS: 85025

== ENCOUNTER 2019-12-14 12:01 | Emergency (ER) | payer OTHER ==
[~2019-12-14] VITALS: Ht 167.6 cm; Wt 45.4 kg
[~2019-12-14 12:01] MED LIST changes: +ALBU2.5V5 INH; +ANORO ELLIPTA1 EAC1 INH; -BUDE6HFA PO; +FERRIC X-150150 M1 PO; +Ferrex 150 Plu1 EACH PO; +Ferrous Sulfat325 MG PO; +NORVASC2.5 MG PO; +SYMBICORT 160-4.6 GM INH
[2019-12-14 13:04] LABS: BASOPHILS ABSOLUTE AUTO 0.08 K/mm3 (0.00-0.23); BASOPHILS PERCENT AUTO 1 % (0-2); EOSINOPHILS ABSOLUTE AUTO 0.16 K/mm3 (0.00-0.68); EOSINOPHILS PERCENT AUTO 2 % (0-6); Hematocrit 26.7 % (33.0-51.0); Hemoglobin 7.3 g/dL (11.5-16.0); IMMATURE GRAN ABSOLUTE AUTO 0.03 K/mm3 (0.00-0.10); IMMATURE GRAN PERCENT AUTO 0 % (0-1); LYMPHOCYTES ABSOLUTE AUTO 1.01 K/mm3 (0.84-5.20); LYMPHOCYTES PERCENT AUTO 14 % (21-46); MONOCYTES ABSOLUTE AUTO 0.63 K/mm3 (0.16-1.47); MONOCYTES PERCENT AUTO 9 % (4-13); Mean Corpuscular HGB 20.8 pg (26.0-34.0); Mean Corpuscular HGB Conc 27.3 g/dL (31.5-36.5); Mean Corpuscular Volume 76 fL (80-100); Mean Platelet Volume 11.9 fL (9.1-12.4); NEUTROPHILS ABSOLUTE AUTO 5.51 K/mm3 (1.96-9.15); NEUTROPHILS PERCENT AUTO 74 % (41-73); Platelet Count 288 K/mm3 (150-400); RDW Coefficient Variation 21.4 % (11.7-14.2); RDW Standard Deviation 58.5 fL (35.1-46.3); Red Blood Cell Count 3.51 M/mm3 (3.80-5.20); White Blood Cell Count 7.42 K/mm3 (4.00-11.30)
[2019-12-14 13:31] LABS: Albumin, Blood 3.3 g/dL (3.4-5.0); Albumin/Globulin Ratio 0.8 (0.8-1.8); Bilirubin, Total 0.5 mg/dL (0.1-1.0); Bun/Creatinine Ratio 12.7 (12.0-20.0); Creatinine, Blood 1.42 mg/dL (0.40-1.00); Potassium, Blood 3.7 mmol/L (3.5-5.5); Total Protein, Blood 7.3 g/dL (6.4-8.2); Troponin I 0.025 ng/mL (0.000-0.040)
[2019-12-14] MEDS ORDERED: Norco 5-325 Ta1 EACH PO ×2 (15:35→16:40)
[2019-12-14] MEDS ORDERED: Prednisone20 MG PO (15:35)
== END 2019-12-14 17:15 | disposition home or self-care (01) ==
LOC: ER 12:01
PROVIDERS: Emergency Medicine
DX: J44.9 Chronic obstructive pulmonary disease, unspecified (principal); S20.212A Contusion of left front wall of thorax, initial encounter; N18.9 Chronic kidney disease, unspecified; I12.9 Hypertensive chronic kidney disease with stage 1 through stage 4 chronic kidney disease, or unspecified chronic kidney disease; F17.210 Nicotine dependence, cigarettes, uncomplicated; Z79.51 Long term (current) use of inhaled steroids; Z79.899 Other long term (current) drug therapy; Z86.73 Personal history of transient ischemic attack (TIA), and cerebral infarction without residual deficits; X50.1XXA Overexertion from prolonged static or awkward postures, initial encounter; E78.5 Hyperlipidemia, unspecified
CPT/HCPCS: 36415; 71101; 71260; 80053; 83880; 84484; 85025; 85379; 93005; 93010; 99285-25; J7512; Q9967

== ENCOUNTER 2019-12-24 19:48 | Inpatient (IN) | payer OTHER ==
[~2019-12-24] VITALS: Ht 165.1 cm; Wt 56.6 kg
[~2019-12-24 19:48] MED LIST changes: +Prednisone20 MG PO
[2019-12-24 20:14] LABS: BASOPHILS ABSOLUTE AUTO 0.02 K/mm3 (0.00-0.23); BASOPHILS PERCENT AUTO 0 % (0-2); EOSINOPHILS ABSOLUTE AUTO 0.09 K/mm3 (0.00-0.68); EOSINOPHILS PERCENT AUTO 1 % (0-6); Hematocrit 21.4 % (33.0-51.0); IMMATURE GRAN ABSOLUTE AUTO 0.02 K/mm3 (0.00-0.10); IMMATURE GRAN PERCENT AUTO 0 % (0-1); LYMPHOCYTES ABSOLUTE AUTO 1.17 K/mm3 (0.84-5.20); LYMPHOCYTES PERCENT AUTO 17 % (21-46); MONOCYTES ABSOLUTE AUTO 0.65 K/mm3 (0.16-1.47); MONOCYTES PERCENT AUTO 9 % (4-13); Mean Corpuscular HGB 19.9 pg (26.0-34.0); Mean Corpuscular HGB Conc 26.2 g/dL (31.5-36.5); Mean Corpuscular Volume 76 fL (80-100); Mean Platelet Volume 10.9 fL (9.1-12.4); NEUTROPHILS PERCENT AUTO 72 % (41-73); Platelet Count 263 K/mm3 (150-400); RDW Coefficient Variation 21.7 % (11.7-14.2); RDW Standard Deviation 59.4 fL (35.1-46.3); Red Blood Cell Count 2.81 M/mm3 (3.80-5.20); White Blood Cell Count 7.05 K/mm3 (4.00-11.30)
[2019-12-24 20:18] LABS: Hemoglobin 5.6 g/dL (11.5-16.0)
[2019-12-24 20:40] LABS: Albumin, Blood 3.2 g/dL (3.4-5.0); Albumin/Globulin Ratio 0.8 (0.8-1.8); Bilirubin, Total 0.5 mg/dL (0.1-1.0); Bun/Creatinine Ratio 13.4 (12.0-20.0); Calcium, Blood 8.4 mg/dL (8.5-10.1); Creatinine, Blood 1.12 mg/dL (0.40-1.00); Globulin, Blood 3.8 g/dL (2.2-4.0); Potassium, Blood 4.4 mmol/L (3.5-5.5)
[2019-12-24 20:41] LABS: Troponin I 0.027 ng/mL (0.000-0.040)
[2019-12-24 20:55] LABS: International Normalized Ratio 1.06; Prothrombin Time Results 11.3 Sec (9.7-11.5)
--- NOTE | 2019-12-25 01:01 | NUR ---
PT TO ICU 10 VIA SHEREE WITH ED RN AND RT @ 0016, FIRST UNIT OF PRBC COMPLETE UPON ARRIVAL. PT ON BIPAP 10/6 FIO2 40%, LS COARSE AND WHEEZY T/O, PT REPORTS FEELING VERY SOB AND FEELING LIKE SHE IS GOING TO PASS OUT, O2 SATURATIONS> 90%. BLOOD SLIP FOR SECOND UNIT OF PRBC SENT TO BLOOD BANK, SOLUMEDROL ADMINISTERED. REPORT GIVEN TO JERI PEÑA TO ASSUME CARE OF PT.
--- NOTE | 2019-12-25 01:35 | NUR ---
ASSUMED PT CARE FROM CASEY ESCALANTE AT 0100 PT SITTING UPRIGHT IN BED NOTED TO BE VERY SOB WITH LABORED BREATHING; RESP RATE >20. BIPAP SETTINGS 12/6; BACK UP RATE OF 12; FIO2 40%; SAO2 >90%. LUNG SOUNDS ARE DIMINISHED T/O ALL LOBES. PT IS ALERT AND ORIENTED X4; HOWEVER, VERY DROWSY AND LETHARGIC. ANSWERS MAINLY YES/NO QUESTIONS. UNABLE TO SPEAK IN FULL/COMPLETE SENTENCES. PT NOTED TO BE IN SINUS ARRHYTHMIA WITH RATE 90'S. BP'S STABLE, SEE FLOWSHEET. AFEBRILE, 97.4. SECOND UNIT OF BLOOD VERIFIED AND ADMINISTERED PER ORDERS. HR NOTED TO TREND DOWN TO THE 80'S ONCE BLOOD WAS INITIATED. NO BM NOTED; GUAIAC POSITIVE PER REPORT. BOWEL TONES ARE HYPOACTIVE; ABDOMEN IS MODERATELY DISTENDED, BUT NOT TENDER TO PALPATION. CALL LIGHT IS WITHIN REACH; PT ABLE TO MAKE HER NEEDS KNOWN AND UNDERSTANDS HOW TO USE CALL LIGHT. WILL CONTINUE TO MONITOR.
[2019-12-25] MEDS ORDERED: Aspir 8181 MG PO (01:51)
[2019-12-25] MEDS ORDERED: ONDA4 PO (01:53)
[2019-12-25] MEDS ORDERED: OXYM.05NI (01:54)
[2019-12-25 04:27] LABS: BASOPHILS ABSOLUTE AUTO 0.02 K/mm3 (0.00-0.23); BASOPHILS PERCENT AUTO 0 % (0-2); EOSINOPHILS PERCENT AUTO 0 % (0-6); Hematocrit 27.3 % (33.0-51.0); IMMATURE GRAN ABSOLUTE AUTO 0.04 K/mm3 (0.00-0.10); IMMATURE GRAN PERCENT AUTO 0 % (0-1); LYMPHOCYTES ABSOLUTE AUTO 0.22 K/mm3 (0.84-5.20); LYMPHOCYTES PERCENT AUTO 2 % (21-46); MONOCYTES ABSOLUTE AUTO 0.17 K/mm3 (0.16-1.47); MONOCYTES PERCENT AUTO 2 % (4-13); Mean Corpuscular HGB 23.3 pg (26.0-34.0); Mean Corpuscular HGB Conc 29.3 g/dL (31.5-36.5); Mean Corpuscular Volume 79 fL (80-100); Mean Platelet Volume 11.3 fL (9.1-12.4); NEUTROPHILS ABSOLUTE AUTO 10.51 K/mm3 (1.96-9.15); NEUTROPHILS PERCENT AUTO 96 % (41-73); Platelet Count 243 K/mm3 (150-400); RDW Coefficient Variation 20.7 % (11.7-14.2); RDW Standard Deviation 59.7 fL (35.1-46.3); Red Blood Cell Count 3.44 M/mm3 (3.80-5.20); White Blood Cell Count 10.96 K/mm3 (4.00-11.30)
[2019-12-25 04:54] LABS: Albumin, Blood 3.2 g/dL (3.4-5.0); Albumin/Globulin Ratio 0.8 (0.8-1.8); Bilirubin, Total 1.6 mg/dL (0.1-1.0); Bun/Creatinine Ratio 13.4 (12.0-20.0); Calcium, Blood 7.9 mg/dL (8.5-10.1); Creatinine, Blood 1.12 mg/dL (0.40-1.00); Globulin, Blood 3.9 g/dL (2.2-4.0); Potassium, Blood 4.8 mmol/L (3.5-5.5); Total Protein, Blood 7.1 g/dL (6.4-8.2)
[2019-12-25 05:16] LABS: PCO2 Arterial 44.9 mmHg (35-45); PO2 Arterial 64.5 mmHg (80-100); pH Blood Arterial 7.36 (7.35-7.45)
--- NOTE | 2019-12-25 05:33 | NUR ---
END OF SHIFT SUMMARY NO SIGNIFICANT CHANGE SINCE LAST ENTRY. REMAINS ON BIPAP 01/21; FIO2 30% WITH SAO2 >90%. RESP RATE 20. REMAINS ALERT AND ORIENTED AND ABLE TO MAKE NEEDS KNOWN. ATTEMPTED BIPAP BREAK WITH ORAL CARE AT 0400. PT ABLE TO PERFORM TASK INDEPENDENTLY WITH 4L OF OXYGEN ON; HOWEVER, SHE QUICKLY BECAME SOB AND OXYGEN SATURATIONS DROPPED TO 85%. PLACED BACK ON BIPAP AND PT RECOVERED, BUT SLOWLY. SHE WAS SITTING UPRIGHT AND TRIPODING OVER BEDSIDE TABLE WITH RESP RATE INCREASING TO THE 30'S AND BP INCREASED TO 170'S SYSTOLIC. DR. ODELL GAVE ORDERS FOR PRN ATIVAN. HOWEVER, BY THE TIME ORDERS WERE ENTERED PT HAD FALLEN BACK TO SLEEP. LUNG SOUNDS REMAIN VERY DIMINISHED T/O ALL LOBES. REMAINED IN SINUS ARRHYTHMIA WITH RATE 90'S. NO BM THIS SHIFT. HGB INCREASED FROM 5.6 TO 8.0 AFTER TWO UNITS OF PRBC'S. CALL LIGHT WITHIN REACH; PT ABLE TO MAKE NEEDS KNOWN. WILL CONTINUE TO MONITOR UNTIL REPORT IS HANDED OFF TO ONCOMING RN.
--- NOTE | 2019-12-25 08:09 | NUR ---
INITIAL ASSESSMENT PATIENT ALERT AND ORIENTED X 4, AFEBRILE. PATIENT CALM AND COOPERATIVE AT THIS TIME. PATIENT GIVEN PRN ATIVAN FOR ANXIETY. PATIENT DENIES PAIN. PATIENT WEAK BUT ABLE TO MOVE ALL EXTREMITIES. LUNGS VERY DIMINISHED THROUGHOUT. PATIENT SATTING 90% AND GREATER ON BIPAP 12/6, 30% FIO2. PATIENT WEARS 2 L NC AT HOME AT BASELINE. PATIENT SOB WITH EXERTION. BREATHING LABORED BEFORE PRN ATIVAN GIVEN. PATIENT TAKES XARELTO FOR A.FLUTTER. PATIENT IN SR CURRENTLY. HR IN THE 80S. SBP 120S TO 130S. POOR CIRCULATION NOTED TO BLES. ALL PULSES FAINT. SCDS IN PLACE. ABDOMEN MODERATELY DISTENDED, SOFT, WITH HYPERACTIVE BS NOTED. GUAIAC POSITIVE IN ER. PATIENT HAS NOT VOIDED YET. EMERGENCY VETERINARY ASSISTANT REPORTS HASN'T VOIDED SINCE ARRIVED AT 0100. SKIN DRY AND FRAGILE. SCATTERED BRUISES NOTED. ABRASION TO L KNEE. RECEIVED REPORT THAT PATIENT HAD RECENT FALL AT HOME. BLES DISCOLORED. NS INFUSING TKO. BED LOW, CALL LIGHT IN REACH. WILL CONTINUE TO MONITOR PATIENT FREQUENTLY THROUGHOUT SHIFT.
--- NOTE | 2019-12-25 08:41 | NUR ---
DR. AYERS UPDATED ON PATIENT STATUS. INFORMED THAT PATIENT HAD RECENT FALL AT HOME AND NO SCANS PERFORMED. INFORMED THAT PATIENT GUAIAC POSITIVE IN ER. INFORMED THAT PATIENT TAKES XARELTO AT HOME FOR A. FLUTTER. INFORMED THAT NO GI CONSULTED. NO ORDERS OBTAINED AT THIS TIME.
--- NOTE | 2019-12-25 12:05 | NUR ---
PATIENT AFEBRILE. PATIENT REFUSES TRYING TO BREAK TO NC. PATIENT REFUSES ORAL CARE. PATIENT CALM. PATIENT REMAINS SATTING 90% AND GREATER ON SAME BIPAP SETTINGS. PATIENT GIVEN SCHEDULED IV STEROID. HR 80S TO 90S. SBP 130S TO 140S. ATTENDS IN PLACE FOR URINARY INCONTINENCE. BLOOD SUGAR OF 145. NO COMPLAINTS AT THIS TIME. BED LOW, CALL LIGHT IN REACH. WILL CONTINUE TO MONITOR.
--- NOTE | 2019-12-25 16:08 | NUR ---
PATIENT AFEBRILE. PATIENT HAS NO COMPLAINTS OF PAIN. PATIENT HAD NC BREAK AROUND 1520 TO GIVE MEDICATION AND TO PERFORM ORAL CARE. PATIENT SATTED INTO 90S FOR ROUGHLY 5 MINUTES ON 4-6 L NC BEFORE BECOMING ANXIOUS, SOB, INCREASED WORK OF BREATHING, SATS IN THE 80S, AND TACHYPNEIC. PATIENT PLACED BACK ON BIPAP AT 12/6, 30% FIO2. PATIENT HAS OCCASIONAL MOIST COUGH. PATIENT GIVEN PRN ATIVAN. PATIENT TACHYCARDIC WITH ANXIETY. SCHEDULED CATAPRES CHANGED FROM BID TO HOME REGIMEN OF TID FOR HYPERTENSION. PATIENT IS NOW MORE CALM AND RELAXED.
--- NOTE | 2019-12-25 18:00 | NUR ---
SHIFT SUMMARY PATIENT REMAINED ALERT AND ORIENTED T/O SHIFT. PATIENT REMAINED AFEBRILE. PATIENT ANXIOUS AT TIMES T/O SHIFT. PATIENT FREQUENTLY REQUESTING PRN ATIVAN. PATIENT SOMETIMES ASLEEP SHORT TIME AFTER ASKING FOR ATIVAN. PATIENT HAD NO COMPLAINTS OF PAIN. PATIENT REMAINED AFEBRILE. PATIENT REMAINS WEAK BUT ABLE TO REPOSITION SELF IN BED. PATIENT REMAINED SATTING 90% AND GREATER ON BIPAP 12/6, 30% FIO2. PATIENT ONLY TOLERATED NC AT 4 TO 6 L FOR ROUGHLY 5 MINUTES BEFORE NEEDING TO GO BACK ON BIPAP FOR DECREASED SATS, INCREASED WOB, ANXIETY, AND TACHYPNEA. PATIENT HAD OCCASIONAL, MOIST, NONPRODUCTIVE COUGH. PATIENT REMAINED IN SR TO ST, HR 80S TO 120S. SBP 120S TO 190S. PATIENT TACHYCARDIC AND HYPERTENSIVE MOSTLY WITH ANXIETY. SCHEDULED CATAPRES INCREASED TO TID THIS SHIFT, WHICH IS PATIENT'S HOME REGIMEN. PATIENT HAD ONE MEDIUM, BROWN FORMED BM THIS SHIFT. NO SIGNS OF ACTIVE BLEEDING NOTED. PATIENT REMAINED NPO EXCEPT FOR SIPS WITH MEDICATION. PATIENT REMAINED INCONTINENT OF URINE- ATTENDS PLACED. NO CHANGE IN SKIN. PATIENT REMAINED REPOSITIONING SELF IN BED. NS REMAINS TKO. PATIENT RECEIVED ROCEPHIN AND AZITHROMYCIN THIS SHIFT. BED LOW, CALL LIGHT IN REACH. WILL BE GIVING REPORT TO ONCOMING ASP NET SOFTWARE DEVELOPER NURSE SHORTLY.
[2019-12-26 04:11] LABS: BASOPHILS PERCENT AUTO 0 % (0-2); EOSINOPHILS PERCENT AUTO 0 % (0-6); Hematocrit 28.2 % (33.0-51.0); Hemoglobin 8.2 g/dL (11.5-16.0); IMMATURE GRAN ABSOLUTE AUTO 0.05 K/mm3 (0.00-0.10); IMMATURE GRAN PERCENT AUTO 1 % (0-1); LYMPHOCYTES ABSOLUTE AUTO 0.36 K/mm3 (0.84-5.20); LYMPHOCYTES PERCENT AUTO 5 % (21-46); MONOCYTES ABSOLUTE AUTO 0.18 K/mm3 (0.16-1.47); MONOCYTES PERCENT AUTO 2 % (4-13); Mean Corpuscular HGB 22.7 pg (26.0-34.0); Mean Corpuscular HGB Conc 29.1 g/dL (31.5-36.5); Mean Corpuscular Volume 78 fL (80-100); Mean Platelet Volume 11.4 fL (9.1-12.4); NEUTROPHILS ABSOLUTE AUTO 7.33 K/mm3 (1.96-9.15); NEUTROPHILS PERCENT AUTO 93 % (41-73); NRBC ABSOLUTE 0.04 K/mm3 (0.00-0.02); NRBC Auto 0.5 /100 WBC (0.0-0.2); Platelet Count 230 K/mm3 (150-400); RDW Coefficient Variation 22.1 % (11.7-14.2); RDW Standard Deviation 61.6 fL (35.1-46.3); Red Blood Cell Count 3.61 M/mm3 (3.80-5.20); White Blood Cell Count 7.92 K/mm3 (4.00-11.30)
[2019-12-26 04:27] LABS: Bun/Creatinine Ratio 17.1 (12.0-20.0); Calcium, Blood 8.5 mg/dL (8.5-10.1); Creatinine, Blood 1.05 mg/dL (0.40-1.00); Potassium, Blood 4.2 mmol/L (3.5-5.5)
--- NOTE | 2019-12-26 05:25 | NUR ---
SHIFT SUMMARY PT REMAINED ALERT AND ORIENTED THROUGHOUT SHIFT. ANXIOUS MOST OF NIGHT WHEN NOT SLEEPING - FREQUENTLY REQUESTING ATIVAN. DID CALL FOR A ONE TIME ORDER OF ATIVAN IN BETWEEN PRN DOSES. BLOOD SUGARS REMAINED WNL - 151 AND 124. TOLERATING BIPAP / AT 25% PT REFUSING TO GET OFF BIPAP AT THE MOMENT. FEELS MORE COMFORTABLE WITH BIPAP ON. TELE NSR/STACH. INCONTINENT UOP ONCE, BUT WAS ABLE TO CALL TO VOID AND HAVE BM IN BEDPAN ONCE. NO EVIDENCE OF BLOOD IN STOOL. ABLE TO REPOSITION IN BED. ABLE TO FOLLOW COMMANDS. GENERALIZED WEAKNESS. DOES NOT COMPLAIN OF PAIN. VITALS STABLE. CALL LIGHT WITHIN REACH, BED IN LOWEST POSITION. WILL CONTINUE TO MONITOR.
--- NOTE | 2019-12-26 08:40 | NUR ---
PERMISSION TO PROVIDE CARE PT GAVE THIS STUDENT NURSE PERMISSION TO PROVIDE CARE ON 12/26/2019
--- NOTE | 2019-12-26 10:28 | NUR ---
0800 PT IS HYPERTENSIVE, ANTICIPATING MORNING MEDICATIONS AT 0900. PT REQUESTING MEDICATION FOR ANXIETY. INFORMED PT MEDICATION IS NOT DUE YET, PROVIDED COMFORT BY OPENING CURTAINS AND TURNING ON TV
--- NOTE | 2019-12-26 11:48 | NUR ---
4856 DR AYERS IN TO EVALUATE PT. RT CALLED FOR DUONEB. PROVIDER WILL SPEAK TO PHARMACIST REGARDING ATIVAN DOSING DUE TO INCREASED ANXIETY
--- NOTE | 2019-12-26 12:29 | NUR ---
1200 PT INCONTINENT PER DAUGHTER. PT SEEMS UNAWARE OF INCONTINENT URINE AND STOOL. NEW ATTEND AND LINEN PROVIDED. NO ADDITIONAL NEEDS AT THIS TIME
--- NOTE | 2019-12-26 14:47 | NUR ---
PT IS UP TO CHAIR AND IS RESTING ON ATIVAN. DAUGHTER IN TO VISIT AND PT SEEMS TO RESPOND.
--- NOTE | 2019-12-26 18:24 | NUR ---
PT HAS TOLERATED ANIOUS MOMENTS T/O DAY BETTER WITH ATIVAN DOSE INCREASE AND WAS JUST GIVEN A DOSE. PT ATTEMTPED TO EAT AND AFTER A FEW BITES BECAME NASUATED AND MEDICATED, SEE EMAR. IV'S SL. PT VS AND I/O NOTED.
--- NOTE | 2019-12-26 20:00 | NUR ---
RECEIVING NOTE RECEIVED HAND OFF FROM Isak FORRESTER RN USING SBAR. SITTING IN CHAIR AT BEDSIDE WITH EYES CLOSED. TV IS ON AND LIGHTS ARE DOWN IN ROOM. OPENED EYES TO VERBAL STIMULI AND ANSWERED QUESTIONS APPROPRIATELY WITH MUMBLED ANSWERS. A/O X4, HUBBARD, FOLLOWS ALL COMMANDS. REORIENTED TO ROOM, CALL SYSTEM, AND POC, VERBALIZES UNDERSTANDING. RESPIRATIONS EVEN , RAPID, AND SHALLOW. O2 SAT IS 92% ON O2 AT 3L/NC. BBS DIM WITH EXP WHEEZES NOTED IN BASES. A-FIB AT 100BPM PER BEDSIDE MONITORING. INCONTINENT OB BOWEL AND BLADDER, WEARS ATTENDS. SCD'S TO BLE. DENIES PAIN, DISCOMFORT, OR FURTHER NEEDS AT THIS TIME. SAFETY MEASURES IN PLACE. WILL CONTINUE TO MONITOR.
--- NOTE | 2019-12-26 22:05 | NUR ---
CARDIO PT'S HR REACHING INTO 130'S WHILE GETTING PRN RESP TREATMENT. ASYMPTOMATIC, SITTING UP IN CHAIR AT BEDSIDE. C/O ANXIETY AT 2130HRS AND ASKED WHEN NEXT DOSE OF ATIVAN AVAILABALE, TOLD 2200. GIVEN HS MEDS WITH ATIVAN AT 2200, TOLERATED WELL. TEMP CHANGED PER HER REQUEST. GIVEN FRESH ICE WATER & FAN FOR COMFORT. DENIES PAIN, DISCOMFORT, SOB/CP, OR FURTHER NEEDS AT THIS TIME. SAFETY MEASURES IN PLACE. WILL CONTINUE TO MONITOR.
--- NOTE | 2019-12-26 23:28 | NUR ---
ELEVATED HR HR SUSTAINING IN THE 130'S/140'S. NEW ORDERS NOTED. CARDIZEM 10MG GIVEN PER MD ORDERS. SAFETY MEASURES IN PLACE. WILL CONTINUE TO MONITOR.
--- NOTE | 2019-12-27 00:42 | NUR ---
ELEVATED HR CONTINUES TO BE ASYMPTOMATIC WITH SUSTAINED HR IN THE 140'S, CONTACTED SUPERVISOR [employer] . RECEIVED ORDER FOR 2ND CARDIZEM DOSE IVP AT 5MG, ADMINSTERED PER ORDERS. SAFETY MEASURES IN PLACE. WILL CONTINUNE TO MONITOR.
--- NOTE | 2019-12-27 02:00 | NUR ---
ANXIETY GIVEN PRN ATIVAN PER PT REQUEST, STATED SHE FELT ANXIOUS. SAFETY MEASURES IN PLACE. WILL CONTINUE TO MONITOR.
--- NOTE | 2019-12-27 05:10 | NUR ---
SHIFT SUMMARY LYING IN SEMI FOWLERS WITH EYES CLOSED. CARDIZEM GTT AT 5MG/HR, STARTED TO LEFT WRIST 20G PIV AFTER PT HR FAILED TO LOWER AFTER 2 CARDIZEM IVP. BEDSIDE MONITORING CHANGED FROM Q2HRS TO Q15MIN. WILL TITRATE TO KEEP HR <110 BPM PER MD ORDERS. NO FURTHER CHANGES NOTED AT THIS TIME. SAFETY MEASURES IN PLACE. WILL CONTINUE TO MONITOR AND GIVE HAND OFF TO ONCOMING SHIFT USING SBAR.
[2019-12-27 05:16] LABS: BASOPHILS PERCENT AUTO 0 % (0-2); EOSINOPHILS PERCENT AUTO 0 % (0-6); Hematocrit 29.1 % (33.0-51.0); Hemoglobin 8.1 g/dL (11.5-16.0); IMMATURE GRAN ABSOLUTE AUTO 0.03 K/mm3 (0.00-0.10); IMMATURE GRAN PERCENT AUTO 0 % (0-1); LYMPHOCYTES ABSOLUTE AUTO 0.22 K/mm3 (0.84-5.20); LYMPHOCYTES PERCENT AUTO 3 % (21-46); MONOCYTES ABSOLUTE AUTO 0.12 K/mm3 (0.16-1.47); MONOCYTES PERCENT AUTO 2 % (4-13); Mean Corpuscular HGB 22.4 pg (26.0-34.0); Mean Corpuscular HGB Conc 27.8 g/dL (31.5-36.5); Mean Corpuscular Volume 80 fL (80-100); NEUTROPHILS ABSOLUTE AUTO 7.22 K/mm3 (1.96-9.15); NEUTROPHILS PERCENT AUTO 95 % (41-73); NRBC ABSOLUTE 0.03 K/mm3 (0.00-0.02); NRBC Auto 0.4 /100 WBC (0.0-0.2); Platelet Count 208 K/mm3 (150-400); RDW Coefficient Variation 23.5 % (11.7-14.2); RDW Standard Deviation 68.2 fL (35.1-46.3); Red Blood Cell Count 3.62 M/mm3 (3.80-5.20); White Blood Cell Count 7.59 K/mm3 (4.00-11.30)
[2019-12-27 05:20] LABS: Mean Platelet Volume 11.3 fL (9.1-12.4)
[2019-12-27 05:40] LABS: Bun/Creatinine Ratio 22.9 (12.0-20.0); Calcium, Blood 8.6 mg/dL (8.5-10.1); Creatinine, Blood 1.05 mg/dL (0.40-1.00); Potassium, Blood 3.7 mmol/L (3.5-5.5)
--- NOTE | 2019-12-27 09:34 | NUR ---
PT REMAINS VERY ANXIOUS THIS AM AND JUST RECIEVED ATIVAN SHORTLY BEFORE REPORT. PT SITTING IN HIGH CARDIAC POSITION AND ANXIOUS ABOUT PHONE USE. PT HR REMAINS 140 RANGE ON CARDIZEM GTT AT 15MG WITH VS TOLERATING THIS NOTED. O2 REMAINS AT 2L AND SATS NOTED ADIQUATE.
--- NOTE | 2019-12-27 11:54 | NUR ---
APPROX 0900 DR AYERS MADE AWARE OF PT HR VIA PHONE AND LATER DR VALENZUELA IN TO ASSSESS PT IN ROOM AND AWARE OF PT HR STATUS AND CARDIZEM GTT AT 15MCG. PT CONT WITH INC HR AND CARDIZEM INC TO 20MCG AND [address] AYERS FOR A STATUS REPORT. CARDIOLOGY CONSULT TO BE CALLED PER DR AYERS. 1140 DR AYERS CALLED CARDIOLOGY RE PT HR STATUS. PT HR REMAINS 150 RANGE WITH BP AND SATS ON 2L BEING TOLERATED AT THIS TIME. LATE ENTRY... PT MOTHER IN TO OBTAIN PT PHONE TO TAKE HOME TO CHARGE. MOTHER DID NOT COME INTO VISIT. PHONE AND ID CARDS SENT HOME WITH MOTHER.
--- NOTE | 2019-12-27 14:25 | NUR ---
Clinical Visit: Pt is alert, oriented. She appears frail, appears severely underweight. Palliative care called by nurse, Tom. Pt has been expressing wish to leave the hospital and go home. She has told Tom that her mother will help take care of her. Tom states that the pt's HR has been 140s overnight, and now in 150s. Cardiology has been consulted. Reviewed pt's current condition and problems. She states that she feels she can rest better at home and reports she will "probably get better" at home, rather than in the hospital. When asking about her heart, she states, "it will get better at home too." She states, "if the heart doctor can get here within 30 minutes, I will let them come see me. If it's after 30 minutes, I will be on my way home already." This RN asks the pt if she is ready for hospice care and pursuing end of life care, if she doesn't wish to stay in the hospital for treatment. She states that she is not ready for hospice: She will get better at home. Pt is still a smoker. She uses O2 at home, "only when I need it." She has a wheelchair and walker at home. She has portable tanks. She states she is able to do everything by herself - all ADLs - with the tools she has at home. She uses reservation of energy and spreads her activities out during the day so she is able to perform them. She has 4 children that live in the area. Her mother is able to assist her as well, she reports. Loan Consultant is in the room now. Will attempt conversation following these tests, if pt allows. For now, she is not pursing anything other than curative treatments and treatments to maintain her current health - only if they can be done at home. Pt is acutely sick in the ICU and this is not a good plan for her, as she would likely go home and have to come back in. She does say that this is her plan. She would like to go home and then return to the hospital if she begins feeling worse. Recommend nicotine patch for relief of nicotine dependence and withdrawal of drug. This may help the pt feel more comfortable and not display desperation of getting home that she is currently doing.
--- NOTE | 2019-12-27 15:07 | NUR ---
1430 ...12 LEAD EKG DONE FOLLOWD BY ALEJANDRO FELDER 5MG AND REPEAT EKG NOTED. DR FRITZ IN TO SEE AND EVALUATE PT STATUS. WILL FOLLOW WITH AMIODARONE GTT ORDERED.
--- NOTE | 2019-12-27 16:20 | NUR ---
High Risk Readmission: Pt is apparently leaving AMA. She is at very high risk of readmission due to her non-compliance and severe condition of comorbidities. She qualifies for hospice under a diagnosis of COPD. PPS 50% - Mainly sit/lie; extensive disease KPS 30% - Severely disabled; hospital admission is indicated although not imminent.
--- NOTE | 2019-12-27 16:46 | NUR ---
1615 AMA NOTE... PT HAS BEEN TALKING FOR LAST 2-3 HOURS ABOUT WANTING TO GO HOME. SHE INSISITED ON GOING HOME AND GOING AMA. PT INDICATED SHE HAD CONTACTED FAMILY AND THEY WOULD BE THERE TO ASSIST HER. PT DAUGHTERS PHONE SAVITA WAS CALLED A COUTRESY BUT WAS TOLD THAT NO ONE BY THAT NAME LIVED AT THAT NUMBER AND NO OTHER NUMBERS WERE AVALIBLE. PT HOME MEDS WERE RETURNED, IV'S TIMES 2 WERE REMOVED INTACT, AND AMIODARONE GTT STOPPED. PT SIGNED AMA PAPERS WTTH RISKS GIVEN THAT WERE READ TO PT. TERRI LE, BIANCA AYERS WERE HENAO AND NOTIFIED. JOHNATHON AYERS AND BIANCA CAME TO TALK WITH PT IN PERSON. DATAWAREHOUSE DEVELOPER ARRANGED TAXI AND WHEELED PT TO EXIT WITH PERSONAL BELONGINGS. AGAIN NO OTHER PHONE NUMBERS WERE AVALIBLE FOR CONTACT OTHER THAN DAUGHTERS AND I WAS TOLD "NO ONE LIVED AT THAT RESIDENCE NAMED [facility]". IRIS WAS TO BE FILLED OUT.
--- NOTE | 2019-12-27 18:30 | NUR ---
Spiritual care note: Queta was aggitated and trying in vain to use her phone. I helped her dial and reached her mother. Queta told me several times she wanted to go home and became irritated that I could not help her reach her dtr. Queta could not remember the number. There appeared to be little to nothing I could do to calm her. She left AMA shortly afterwards.
== END 2019-12-27 16:15 | disposition left against medical advice (07) | DRG 189 ==
LOC: ER 19:48 → ICUW 23:56
PROVIDERS: Emergency Medicine; Student in an Organized Health Care Education/Training Program; ADMIT Internal Medicine
PROC: 30233N1 Transfusion of Nonautologous Red Blood Cells into Peripheral Vein, Percutaneous Approach (ICD-10-PCS; principal; 2019-12-24)
PROC: 5A09357 Assistance with Respiratory Ventilation, Less than 24 Consecutive Hours, Continuous Positive Airway Pressure (ICD-10-PCS; 2019-12-24)
PROC: 3E02340 Introduction of Influenza Vaccine into Muscle, Percutaneous Approach (ICD-10-PCS; 2019-12-25)
DX: J96.01 Acute respiratory failure with hypoxia (principal); N17.9 Acute kidney failure, unspecified; I48.92 Unspecified atrial flutter; I47.1 Supraventricular tachycardia; D64.9 Anemia, unspecified; J43.9 Emphysema, unspecified; F41.9 Anxiety disorder, unspecified; Z20.828 Contact with and (suspected) exposure to other viral communicable diseases; I12.9 Hypertensive chronic kidney disease with stage 1 through stage 4 chronic kidney disease, or unspecified chronic kidney disease; N18.9 Chronic kidney disease, unspecified; E78.5 Hyperlipidemia, unspecified; I73.9 Peripheral vascular disease, unspecified; F17.210 Nicotine dependence, cigarettes, uncomplicated; K20.90 Esophagitis, unspecified without bleeding; F10.21 Alcohol dependence, in remission; I70.1 Atherosclerosis of renal artery; Z53.29 Procedure and treatment not carried out because of patient's decision for other reasons; Z91.14 Patient's other noncompliance with medication regimen; Z79.899 Other long term (current) drug therapy; Z79.01 Long term (current) use of anticoagulants; Z85.41 Personal history of malignant neoplasm of cervix uteri; Z86.73 Personal history of transient ischemic attack (TIA), and cerebral infarction without residual deficits; Z79.891 Long term (current) use of opiate analgesic; Z79.51 Long term (current) use of inhaled steroids; Z79.52 Long term (current) use of systemic steroids; Z23 Encounter for immunization
CPT/HCPCS: 36415; 36430; 36600; 71045; 80048; 80053; 82803; 82947; 83605; 84484; 85025; 85610; 85730; 86850; 86900; 86901; 86923; 87040; 93005; 93010; 94640; 94644; 94660; 96365; 96375; 96376; 99285-25; C9113; G0008; J0282; J0456; J0696; J1100; J2060; J2405; J2930; J7030; J7050; J7060; P9016; Q2038; U0004

== ENCOUNTER 2020-01-14 22:20 | Emergency (ER) | payer OTHER ==
[~2020-01-14] VITALS: Ht 165.1 cm; Wt 54.4 kg
[~2020-01-14 22:20] MED LIST changes: +Aspir 8181 MG PO; +ONDA4 PO; +OXYM.05NI
[2020-01-14 22:53] LABS: BASOPHILS ABSOLUTE AUTO 0.02 K/mm3 (0.00-0.23); BASOPHILS PERCENT AUTO 0 % (0-2); EOSINOPHILS PERCENT AUTO 1 % (0-6); Hematocrit 30.5 % (33.0-51.0); Hemoglobin 8.5 g/dL (11.5-16.0); IMMATURE GRAN ABSOLUTE AUTO 0.04 K/mm3 (0.00-0.10); IMMATURE GRAN PERCENT AUTO 0 % (0-1); LYMPHOCYTES ABSOLUTE AUTO 0.66 K/mm3 (0.84-5.20); LYMPHOCYTES PERCENT AUTO 7 % (21-46); MONOCYTES ABSOLUTE AUTO 0.91 K/mm3 (0.16-1.47); MONOCYTES PERCENT AUTO 9 % (4-13); Mean Corpuscular HGB 24.9 pg (26.0-34.0); Mean Corpuscular HGB Conc 27.9 g/dL (31.5-36.5); Mean Corpuscular Volume 89 fL (80-100); Mean Platelet Volume 10.6 fL (9.1-12.4); NEUTROPHILS ABSOLUTE AUTO 8.16 K/mm3 (1.96-9.15); NEUTROPHILS PERCENT AUTO 83 % (41-73); Platelet Count 258 K/mm3 (150-400); RDW Coefficient Variation 27.9 % (11.7-14.2); RDW Standard Deviation 88.3 fL (35.1-46.3); Red Blood Cell Count 3.41 M/mm3 (3.80-5.20); White Blood Cell Count 9.89 K/mm3 (4.00-11.30)
[2020-01-14 23:09] LABS: Albumin, Blood 2.8 g/dL (3.4-5.0); Albumin/Globulin Ratio 0.7 (0.8-1.8); Bilirubin, Total 0.5 mg/dL (0.1-1.0); Bun/Creatinine Ratio 16.9 (12.0-20.0); Calcium, Blood 8.2 mg/dL (8.5-10.1); Creatinine, Blood 1.3 mg/dL (0.40-1.00); Potassium, Blood 3.3 mmol/L (3.5-5.5); Total Protein, Blood 6.8 g/dL (6.4-8.2)
[2020-01-15] MEDS ORDERED: CEPH500 PO (00:32)
[2020-01-15] MEDS ORDERED: Bactrim Ds Tab1 EACH PO (00:32)
[2020-01-17] MEDS ORDERED: FURO40 PO (12:29)
== END 2020-01-15 01:08 | disposition left against medical advice (07) ==
LOC: ER 22:20
PROVIDERS: Emergency Medicine
DX: S81.012A Laceration without foreign body, left knee, initial encounter (principal); S00.83XA Contusion of other part of head, initial encounter; S80.11XA Contusion of right lower leg, initial encounter; L03.116 Cellulitis of left lower limb; L03.115 Cellulitis of right lower limb; I10 Essential (primary) hypertension; E78.5 Hyperlipidemia, unspecified; F17.210 Nicotine dependence, cigarettes, uncomplicated; I48.92 Unspecified atrial flutter; J43.9 Emphysema, unspecified; Z79.82 Long term (current) use of aspirin; Z79.899 Other long term (current) drug therapy; Z86.73 Personal history of transient ischemic attack (TIA), and cerebral infarction without residual deficits; W05.0XXA Fall from non-moving wheelchair, initial encounter
CPT/HCPCS: 12002; 36415; 70450; 71045; 80053; 83880; 85025; 90471; 90714; 93005; 93010; 96374-59; 96376-59; 99285-25; A9270-GY; J0282; J7030; J7060

== ENCOUNTER 2020-01-17 05:47 | Inpatient (IN) | payer OTHER ==
[~2020-01-17] VITALS: Ht 165.1 cm; Wt 61.0 kg
[~2020-01-17 05:47] MED LIST changes: -Aspir 8181 MG PO; +Bactrim Ds Tab1 EACH PO; -NORVASC2.5 MG PO; -Protonix40 MG PO; -SYMBICORT 160-4.6 GM INH; -XARELTO20 MG PO
[2020-01-17 06:56] LABS: BASOPHILS ABSOLUTE AUTO 0.02 K/mm3 (0.00-0.23); BASOPHILS PERCENT AUTO 0 % (0-2); EOSINOPHILS PERCENT AUTO 0 % (0-6); Hematocrit 30.8 % (33.0-51.0); Hemoglobin 8.3 g/dL (11.5-16.0); IMMATURE GRAN ABSOLUTE AUTO 0.07 K/mm3 (0.00-0.10); IMMATURE GRAN PERCENT AUTO 1 % (0-1); LYMPHOCYTES PERCENT AUTO 4 % (21-46); MONOCYTES ABSOLUTE AUTO 0.59 K/mm3 (0.16-1.47); MONOCYTES PERCENT AUTO 6 % (4-13); Mean Corpuscular HGB 24.9 pg (26.0-34.0); Mean Corpuscular HGB Conc 26.9 g/dL (31.5-36.5); Mean Corpuscular Volume 92 fL (80-100); Mean Platelet Volume 10.7 fL (9.1-12.4); NEUTROPHILS ABSOLUTE AUTO 8.28 K/mm3 (1.96-9.15); NEUTROPHILS PERCENT AUTO 89 % (41-73); NRBC ABSOLUTE 0.02 K/mm3 (0.00-0.02); NRBC Auto 0.2 /100 WBC (0.0-0.2); Platelet Count 320 K/mm3 (150-400); RDW Coefficient Variation 28.3 % (11.7-14.2); Red Blood Cell Count 3.34 M/mm3 (3.80-5.20); White Blood Cell Count 9.36 K/mm3 (4.00-11.30)
[2020-01-17 07:15] LABS: Albumin/Globulin Ratio 0.7 (0.8-1.8); Bilirubin, Total 0.4 mg/dL (0.1-1.0); Bun/Creatinine Ratio 22.3 (12.0-20.0); Creatinine, Blood 1.3 mg/dL (0.40-1.00); Globulin, Blood 4.1 g/dL (2.2-4.0); Magnesium, Blood 2.6 mg/dL (1.6-2.4); Potassium, Blood 4.3 mmol/L (3.5-5.5); Total Protein, Blood 7.1 g/dL (6.4-8.2); Troponin I 0.042 ng/mL (0.000-0.040)
[2020-01-17 09:50] LABS: PCO2 Arterial 66.4 mmHg (35-45); PO2 Arterial 65.4 mmHg (80-100); pH Blood Arterial 7.38 (7.35-7.45)
[2020-01-17 10:15] LABS: Influenza A, PCR Negative (NEGATIVE); Influenza B, PCR Negative (NEGATIVE); Resp Syncytial Virus, PCR Negative (NEGATIVE); SARS-Cov-2 (COVID-19) PCR, MMC Negative (NEGATIVE)
[2020-01-17] MEDS ORDERED: POTA10T PO (12:29)
--- NOTE | 2020-01-17 12:46 | NUR ---
ASSUMED CARE OF PT FROM ER PT ARRIVED VIA STRETCHER, NASAL CANNULA AND DILTIAZEM DRIP AT 20ML/HR. PT WAS TRANSFERRED TO HOSPITAL BED, PLACED ON BIPAP, VS TAKE, HR 140s, BP SLIGHTLY ELEVATED, AFIB WITH RVR ON MONITOR. LUNGS ON RIGHT SIDE HAVE WHEEZING, LEFT UPPER IS DIMINISED, LEFT LOWER LOBE HAS WHEEZING. SAT IS GREATER THAN 90%. PT IS UNABLE TO ANSWER TOO MANY QUESTIONS REGARDING ADMISSION BUT WAS ABLE TO GIVE PERMISSION TO SPEAK WITH FAMILY AND ANSWER A FEW QUESTIONS. PT USES A WHEELCHAIR AT HOME, HAS JADE IN PLACE AT THIS TIME. PT HAS 2 IV SITES, RIGHT FOREARM AND LEFT AC. JADE IS PATENT AND DRAINING CLEAR YELLOW URINE. PT HAS SCATTERED BRUISING OVER HER BODY, INCLUDING A SWOLLEN OCCIPITAL AREA ON THE RIGHT SIDE OF THE FACE FROM A FALL AT HOME IN THE LAST FEW DAYS. PT IS LETHARGIC AND RESTING AT THIS TIME.
--- NOTE | 2020-01-17 17:11 | NUR ---
Queta is lying in bed, wearing bipap, RR22 and eyes are closed, room is darkened, and she appears to be very calm and in no distress. Medications given as ordered at this time.
--- NOTE | 2020-01-17 19:00 | NUR ---
SHIFT SUMMARY PT ARRIVED TO PCU THIS AFTERNOON, PT ARRIVED WITH BIPAP AND A DILTIAZEM DRIP @ 20ML/HR; THIS HAS BEEN TITRATED DOWN TO 10ML. PT HAS BEEN COOPERATIVE WITH CARE. PT HAS MANY BRUISES SCATTERED OVER HER BODY AND A SORE ON THE RIGHT [place]. PT HAS LARGE AMOUNT OF BRUISING AND SWELLING AROUND THE EYE ON THE RIGHT SIDE OF THE FACE. PT HAS TOLERATED BIPAP WELL AND SATURATION HAS REMAINED ABOVE 90%. PT IS CURRENTLY NPO, AND HAS A JADE IN PLACE. PT WAS ADMITTED WITH AFIB WITH RVR, SHE HAS REMAINED TACHY THROUGHOUT THE SHIFT 130s-140s. PT IS RESTING IN BED AT THIS TIME
[2020-01-17 19:08] LABS: U Amphetamine Screen Not Detected; U Barbituate Screen Not Detected; U Benzodiazapine Screen DETECTED; U Buprenorphine Screen Not Detected; U Cannabinoids Screen DETECTED; U Cocaine Screen Not Detected; U Methadone Screen Not Detected; U Methamphetamine Screen Not Detected; U Opiates Screen Not Detected; U Oxycodone Screen Not Detected; U Phencyclidine Screen Not Detected; U Propoxyphene Screen Not Detected
--- NOTE | 2020-01-18 03:48 | NUR ---
CARDIZEM DRIP STOPPED CARDIZEM DRIP STOPPED AT 0350. HR SUSTAINING AT 104.
[2020-01-18 04:18] LABS: BASOPHILS ABSOLUTE AUTO 0.03 K/mm3 (0.00-0.23); BASOPHILS PERCENT AUTO 0 % (0-2); EOSINOPHILS ABSOLUTE AUTO 0.02 K/mm3 (0.00-0.68); EOSINOPHILS PERCENT AUTO 0 % (0-6); Hematocrit 28.5 % (33.0-51.0); Hemoglobin 7.7 g/dL (11.5-16.0); IMMATURE GRAN ABSOLUTE AUTO 0.02 K/mm3 (0.00-0.10); IMMATURE GRAN PERCENT AUTO 0 % (0-1); LYMPHOCYTES ABSOLUTE AUTO 1.08 K/mm3 (0.84-5.20); LYMPHOCYTES PERCENT AUTO 15 % (21-46); MONOCYTES PERCENT AUTO 11 % (4-13); Mean Corpuscular HGB 24.8 pg (26.0-34.0); Mean Corpuscular Volume 92 fL (80-100); Mean Platelet Volume 10.7 fL (9.1-12.4); NEUTROPHILS ABSOLUTE AUTO 5.42 K/mm3 (1.96-9.15); NEUTROPHILS PERCENT AUTO 73 % (41-73); Platelet Count 290 K/mm3 (150-400); RDW Coefficient Variation 29.2 % (11.7-14.2); RDW Standard Deviation 92.5 fL (35.1-46.3); Red Blood Cell Count 3.11 M/mm3 (3.80-5.20); White Blood Cell Count 7.37 K/mm3 (4.00-11.30)
[2020-01-18 04:40] LABS: Albumin, Blood 2.4 g/dL (3.4-5.0); Albumin/Globulin Ratio 0.7 (0.8-1.8); Bilirubin, Total 0.6 mg/dL (0.1-1.0); Bun/Creatinine Ratio 23.3 (12.0-20.0); Calcium, Blood 8.7 mg/dL (8.5-10.1); Creatinine, Blood 1.16 mg/dL (0.40-1.00); Globulin, Blood 3.3 g/dL (2.2-4.0); Magnesium, Blood 2.4 mg/dL (1.6-2.4); Potassium, Blood 3.7 mmol/L (3.5-5.5); Total Protein, Blood 5.7 g/dL (6.4-8.2)
--- NOTE | 2020-01-18 06:54 | NUR ---
SHIFT SUMMARY PT ALERT AND ORIENTED X 4. PT REQUESTS MEDICATION TO ALLOW HER TO SLEEP. PHYSICIAN NOTIFIED. MEDICATIONS ORDERED AND GIVEN PER EMAR. PT'S HR REMAINED TACHYCARDIC T/O SHIFT. MEDICATIONS GIVEN PER EMAR. PT REPORTS NO CP OR PRESSURE. BP REMAINED STABLE. PT WORE BIPAP T/O SHIFT. FIO2 AT 45%. PT TURNED T/O SHIFT. PT ABLE TO ASSIST IN TURNING. WOUND ON L LEG CLEANED AND RE-DRESSED. PICTURES OF WOUNDS WERE TAKEN. PT ABLE TO SLEEP T/O SHIFT. OXYGEN SATURATION MAINTAINED ABOVE 92%. WILL CONTINUE TO MONITOR UNTIL REPORT GIVEN TO DAYSHIFT RN.
--- NOTE | 2020-01-18 12:44 | NUR ---
Echocardiogram completed.
--- NOTE | 2020-01-18 17:17 | NUR ---
PT SUMMARY: PT REMAINED ALERT AND ORIENTED AT BASELINE, ANXIOUS MOST OF THE TIME. HRR REMAINED AFIB WAS AT 140-150'S EVEN ON CARDIZEM GTT AT 20MG/HR, DIGOXIN 0.25MG GIVEN HRR WENT DOWN TO 90-100'S, PT STARTED ON PO CARDIZEM, CARDIZEM GTT TRUNED DOWN TO 10MG/HR PT HRR WENT UP AGAIN TO 120-130'S, BP SYSTOLIC 140'S, SATS ABOVE 92% ON 6L OF O2 VIA [place] NC, BIPAP AT BEDSIDE PRN AT 40% FIO2. PT DENIES ANY PAIN, BUT WAS C/O ANXIETY CAUSE OF SOB/, PT WAS OFFERED NASAL SPRAY THAT SEEMED TO WORK, BREATHING TX PER RT. PT IS NOW CALM EATING DINNER SON AT BEDSIDE TO VISIT. DENIES CHEST PAIN/PRESSURE. ECHO WAS DONE TODAY AWAITING FOR RESULT. NO OTHER ISSUES ENCOUNTERED FOR THE SHIFT, PT ABLE TO MAKE NEEDS KNOWN, WILL MONITOR
[2020-01-19 03:49] LABS: BASOPHILS ABSOLUTE AUTO 0.04 K/mm3 (0.00-0.23); BASOPHILS PERCENT AUTO 1 % (0-2); EOSINOPHILS ABSOLUTE AUTO 0.08 K/mm3 (0.00-0.68); EOSINOPHILS PERCENT AUTO 1 % (0-6); Hematocrit 26.3 % (33.0-51.0); Hemoglobin 7.6 g/dL (11.5-16.0); IMMATURE GRAN ABSOLUTE AUTO 0.02 K/mm3 (0.00-0.10); IMMATURE GRAN PERCENT AUTO 0 % (0-1); LYMPHOCYTES PERCENT AUTO 11 % (21-46); MONOCYTES ABSOLUTE AUTO 0.87 K/mm3 (0.16-1.47); MONOCYTES PERCENT AUTO 11 % (4-13); Mean Corpuscular HGB 25.9 pg (26.0-34.0); Mean Corpuscular HGB Conc 28.9 g/dL (31.5-36.5); Mean Corpuscular Volume 90 fL (80-100); Mean Platelet Volume 10.3 fL (9.1-12.4); NEUTROPHILS ABSOLUTE AUTO 6.05 K/mm3 (1.96-9.15); NEUTROPHILS PERCENT AUTO 76 % (41-73); Platelet Count 279 K/mm3 (150-400); RDW Coefficient Variation 27.9 % (11.7-14.2); RDW Standard Deviation 87.4 fL (35.1-46.3); Red Blood Cell Count 2.93 M/mm3 (3.80-5.20); White Blood Cell Count 7.96 K/mm3 (4.00-11.30)
[2020-01-19 04:31] LABS: Anion Gap 3 mmol/L (6-16); Blood Urea Nitrogen 24 mg/dL (8-24); Bun/Creatinine Ratio 17.8 (12.0-20.0); CO2, Blood 36 mmol/L (21-32); Calcium, Blood 8.4 mg/dL (8.5-10.1); Chloride, Blood 99 mmol/L (98-108); Creatinine, Blood 1.35 mg/dL (0.40-1.00); Digoxin (Lanoxin) 1.04 ug/mL (0.80-2.00); Glomerular Filtration Rate 44 (60-); Glucose, Blood 141 mg/dL (70-99); Potassium, Blood 3.4 mmol/L (3.5-5.5); Sodium, Blood 138 mmol/L (136-145)
--- NOTE | 2020-01-19 05:27 | NUR ---
SHIFT SUMMARY PT ALERT AND ORIENTED X 3. PT REQUESTS MEDICATION FOR SLEEP OR ANXIETY. PHYSICIAN NOTIFIED AND MEDICATIONS GIVEN PER EMAR. PT REPORTS NO CP OR PRESSURE. HR TACHYCARDIC. PT ON CARDIZEM GTT. BP STABLE. OXYGEN SATURATION MAINTAINED ABOVE 92% ON 10 L OF OXYGEN VIA HIGH FLOW NC. PT ABLE TO SLEEP T/O SHIFT. REFUSED BIPAP. WILL CONTINUE TO MONITOR UNTIL REPORT GIVEN TO DAYSHIFT RN.
--- NOTE | 2020-01-19 07:22 | NUR ---
ASSUMED CARE: PT RESTING IN BED. BED ALARM IN PLACE. PT CURRENTLY AFIB 140S ON TELE. CARDIZEM GTT AT 15 AT THIS TIME. NO FURTHER NEEDS AT PRESENT.
--- NOTE | 2020-01-19 11:48 | NUR ---
TELE CALLED THAT PT'S HR RETURNED TO 140S. SCHEDULED AND PRN MEDS GIVEN TO MANAGE THIS. PT SITTING UPRIGHT IN CHAIR WITH NC AT THIS TIME.
--- NOTE | 2020-01-19 18:25 | NUR ---
SHIFT SUMMARY: PT ON AMIODORONE GTT AT THIS TIME. HR AFLUTTER 90S TO 140S. MEDICATED MULTIPLE TIMES WITH METOPROLOL. UP TO CHAIR AT TIMES WITH MINIMAL ASSIST. MEDICATED X1 FOR NAUSEA. NO FURTHER NEEDS OR CONCERNS AT THIS TIME.
--- NOTE | 2020-01-20 05:51 | NUR ---
SHIFT SUMMARY PT WAS ALERT AND ORIENTED AND COOPERATIVE WITH CARE. HR WAS A-FIB AT 127-130BPM CONSISTANTLY. GAVE PRN METOPROLOL WITH LITTLE EFFECT, HR DOWN TO 125-127BPM. BP HYPERTENSIVE UP TO THE 150'S SYSTOLIC WITH LITTLE DROP AFTER METOPROLOL. AMIODARONE INFUSING. PT DENIED ANY CHEST PAIN. PT ON 6LPM VIA NC T/O THE NIGHT, DID NOT WANT HER BIPAP ON WHILE SLEEPING AND O2 SATS REMAINED IN THE 90'S. NONPRODUCTIVE HACKING COUGH. PT STATED SOB AT START OF SHIFT, GOT BREATHING TREATMENT, NO LONGER SOB. PT OTHERWISE HAD A QUIET UNEVENTFUL NIGHT.
[2020-01-20 06:39] LABS: BASOPHILS ABSOLUTE AUTO 0.02 K/mm3 (0.00-0.23); BASOPHILS PERCENT AUTO 0 % (0-2); EOSINOPHILS ABSOLUTE AUTO 0.13 K/mm3 (0.00-0.68); EOSINOPHILS PERCENT AUTO 2 % (0-6); Hematocrit 27.5 % (33.0-51.0); Hemoglobin 7.5 g/dL (11.5-16.0); IMMATURE GRAN ABSOLUTE AUTO 0.03 K/mm3 (0.00-0.10); IMMATURE GRAN PERCENT AUTO 0 % (0-1); LYMPHOCYTES ABSOLUTE AUTO 0.76 K/mm3 (0.84-5.20); LYMPHOCYTES PERCENT AUTO 11 % (21-46); MONOCYTES ABSOLUTE AUTO 0.47 K/mm3 (0.16-1.47); MONOCYTES PERCENT AUTO 7 % (4-13); Mean Corpuscular HGB 24.9 pg (26.0-34.0); Mean Corpuscular HGB Conc 27.3 g/dL (31.5-36.5); Mean Corpuscular Volume 91 fL (80-100); Mean Platelet Volume 10.8 fL (9.1-12.4); NEUTROPHILS ABSOLUTE AUTO 5.51 K/mm3 (1.96-9.15); NEUTROPHILS PERCENT AUTO 80 % (41-73); Platelet Count 290 K/mm3 (150-400); RDW Coefficient Variation 26.5 % (11.7-14.2); RDW Standard Deviation 85.4 fL (35.1-46.3); Red Blood Cell Count 3.01 M/mm3 (3.80-5.20); White Blood Cell Count 6.92 K/mm3 (4.00-11.30)
[2020-01-20 06:53] LABS: Bun/Creatinine Ratio 15.4 (12.0-20.0); Calcium, Blood 8.6 mg/dL (8.5-10.1); Creatinine, Blood 1.49 mg/dL (0.40-1.00)
--- NOTE | 2020-01-20 10:05 | NUR ---
0930 AMIODARONE [place]'D PER ORDERS
--- NOTE | 2020-01-20 10:49 | NUR ---
1043 TUMS GIVEN PER PT REQUEST FOR BURNING IN UPPER ABD
--- NOTE | 2020-01-20 17:01 | NUR ---
pt reports burning stomach pain, requests lines be unhooked so she can go to the emergency room and be checked for internal bleeding. discussed with patient that i will contact physician regarding her concerns. spoke with dr phillips to update her on pts status
--- NOTE | 2020-01-20 17:34 | NUR ---
pt tells me she is "demanding labwork be drawn now" as is having burning upper abd pain and is concerned about internal bleeding. spoke with dr phillips regarding pts concerns. per dr phillips she will see patient in am and lab work is currently ordered for patient in the am. spoke with pt regarding plan for lab work being repeated in am
--- NOTE | 2020-01-20 17:47 | NUR ---
SUMMARY PT BECOMES ANXIOUS AT TIMES AND RAISING VOICE TO STAFF- PT CALMS WHEN CONCERNS ARE DISCUSSED WITH HER AND QUESTIONS ANSWERED. PT EATING DINNER AT THIS TIME AND KNOWS TO NOTIFY STAFF IF HAS ANY CHANGE IN PAIN OR DISCOMFORT LEVEL. PT HAS REQUIRED IV LOPRESSOR FOR ELEVATED HEART RATE. REQUIRES OXYGEN AT 4-6 LITERS TO MAINTAIN BIOX GREATER THAN 90 PERCENT. PT UP TO CHAIR WITH STANDBY ASSIST. RIGHT BARAHONA REDNESS MARGINS MARKED ON PTS SKIN THIS AM AND HAS NOT CHANGED IN SIZE OR APPEARANCE
[2020-01-21 04:10] LABS: BASOPHILS ABSOLUTE AUTO 0.02 K/mm3 (0.00-0.23); BASOPHILS PERCENT AUTO 0 % (0-2); EOSINOPHILS ABSOLUTE AUTO 0.21 K/mm3 (0.00-0.68); EOSINOPHILS PERCENT AUTO 3 % (0-6); Hematocrit 26.8 % (33.0-51.0); Hemoglobin 7.3 g/dL (11.5-16.0); IMMATURE GRAN ABSOLUTE AUTO 0.03 K/mm3 (0.00-0.10); IMMATURE GRAN PERCENT AUTO 0 % (0-1); LYMPHOCYTES PERCENT AUTO 14 % (21-46); MONOCYTES ABSOLUTE AUTO 0.41 K/mm3 (0.16-1.47); MONOCYTES PERCENT AUTO 6 % (4-13); Mean Corpuscular HGB 24.7 pg (26.0-34.0); Mean Corpuscular HGB Conc 27.2 g/dL (31.5-36.5); Mean Corpuscular Volume 91 fL (80-100); Mean Platelet Volume 10.9 fL (9.1-12.4); NEUTROPHILS PERCENT AUTO 77 % (41-73); Platelet Count 275 K/mm3 (150-400); RDW Coefficient Variation 26.1 % (11.7-14.2); RDW Standard Deviation 82.8 fL (35.1-46.3); Red Blood Cell Count 2.95 M/mm3 (3.80-5.20); White Blood Cell Count 6.67 K/mm3 (4.00-11.30)
[2020-01-21 04:27] LABS: Bun/Creatinine Ratio 17.2 (12.0-20.0); Calcium, Blood 8.8 mg/dL (8.5-10.1); Creatinine, Blood 1.28 mg/dL (0.40-1.00); Potassium, Blood 3.9 mmol/L (3.5-5.5)
--- NOTE | 2020-01-21 05:38 | NUR ---
SUMMARY PATIENT IS ALERT AND ORIENTED, BECOMES ANXIOUS ABOUT CARE. PATIENT IS INCONTINENT, BRIEF IS ON, PATIENT CALLS AFTER SHE IS INCONTINENT OF BLADDER, ASSIST PATIENT WITH BRIEF CHANGE. REPOSTITIONS SELF IN BED. HR 100-130S, MEDICATED, SEE EMAR. 02 SATS >90% ON 5L VIA NC. PATIENT SLEPT MOST THE NIGHT. VSS, NO ACUTE CHANGES. CALL LIGHT IN REACH, WILL CONTINUE TO MONITOR.
--- NOTE | 2020-01-21 09:00 | NUR ---
pt sitting up in chair, charge nurse in room, pt raised voice at this creative writer as soon as I entered room, saying she hasn't met me in two days, seems fixated on that, she is unhappy her meds weren't given sooner, but they are due at 0900, seems angry, threatening to leave ama, meds were given, she did cooperate with assessment and v.s., heart rate running in the 130's, a/ox3, lungs are clear a bit dim in bases, resp even and unlabored, currently on 4 liters 02 via n/c, no cough noted, hrirr, tele in place running aflutter/fib in the 130's, no edema noted, iv site is clear and patent, btx4, abd flat soft nontender, incont of urine, attends in place, skin is very dark to b/l le, with wounds to legs, left leg has dressing in place, sheridan, call light in reach.
--- NOTE | 2020-01-21 14:24 | NUR ---
pt up to bsc, is visiting with dairy associate, took her gabapenten. denies any further need at this time. call light in reach.
--- NOTE | 2020-01-21 17:43 | NUR ---
pt has been more calm this afternoon, mom came in to visit, the increase in metoprolol brought the rate down to the 70's and 80's for most of the morning, late afternoon it started creeping up again, was notified, gave an extra dose of 25mg, then will get 100mg tonight, no further changes this shift. call light in reach.
[2020-01-22 04:28] LABS: BASOPHILS ABSOLUTE AUTO 0.04 K/mm3 (0.00-0.23); BASOPHILS PERCENT AUTO 1 % (0-2); EOSINOPHILS PERCENT AUTO 3 % (0-6); Hematocrit 28.5 % (33.0-51.0); Hemoglobin 7.7 g/dL (11.5-16.0); IMMATURE GRAN ABSOLUTE AUTO 0.03 K/mm3 (0.00-0.10); IMMATURE GRAN PERCENT AUTO 0 % (0-1); LYMPHOCYTES PERCENT AUTO 14 % (21-46); MONOCYTES PERCENT AUTO 7 % (4-13); Mean Corpuscular HGB 24.6 pg (26.0-34.0); Mean Corpuscular Volume 91 fL (80-100); NEUTROPHILS ABSOLUTE AUTO 5.26 K/mm3 (1.96-9.15); NEUTROPHILS PERCENT AUTO 75 % (41-73); Platelet Count 325 K/mm3 (150-400); RDW Coefficient Variation 25.4 % (11.7-14.2); RDW Standard Deviation 81.7 fL (35.1-46.3); Red Blood Cell Count 3.13 M/mm3 (3.80-5.20); White Blood Cell Count 7.03 K/mm3 (4.00-11.30)
[2020-01-22 04:48] LABS: Bun/Creatinine Ratio 15.3 (12.0-20.0); Calcium, Blood 8.9 mg/dL (8.5-10.1); Creatinine, Blood 1.5 mg/dL (0.40-1.00); Potassium, Blood 4.3 mmol/L (3.5-5.5)
--- NOTE | 2020-01-22 06:48 | NUR ---
SHIFT SUMMARY PT AGGITATED AT TIMES DURING SHIFT. PT ALERT AND ORIENTED X 4. HR TACHYCARDIC. BP STABLE. PT REPORTS NO CP OR PRESSURE. OXYGEN SATURATION MAINTAINED ABOVE 92% ON 4 L OF OXYGEN VIA NC. PT ABLE TO TURN SELF IN BED NEEDED. DEPENDS IN PLACE FOR INCONTINENCE. WILL CONTINUE TO MONITOR UNTIL REPORT GIVEN TO DAYSHIFT RN.
[2020-01-22] MEDS ORDERED: Amiodarone HCl200 MG PO (14:03)
--- NOTE | 2020-01-22 14:59 | NUR ---
PT DISCHARGED TO HOME TODAY WITH DISCHARGE ORDERS. PT TO CONTINUE TAKING METOPROLOL 150MG BID AND AMIODARONE 200 MG BID FOR 7 DAYS AND 100 MG DAILY AFTER. PT'S HRR REMAINED AFLUTTER STAYED 90-120'S, BP SYSTOLIC 140-160'S, SATS ABOVE 92% ON 4L OF O2, AFEBRILE. NIGHT TIME DOSE WAS GIVEN PRIOR TO PT'S DISCHARGE CALLED AND VERIFIED VIA PHONE WITH DR VASQUEZ. WRITTEN PRESCRIPTION PROVIDED WITH THE PT, PRESCRIPTION CALLED TO [facility] PT AWARE TO CALL AND VERIFY IN AM FOR DELIVERY. ALL DISCHARGE INSTRUCTIONS PROVIDED WITH THE PT, TO FOLLOW UP WITH PCP WITHIN 2 WEEKS. PT VERBALIZED UNDERSTANDING. ALL BELONGINGS SENT WITH PT, PT ACCOMPANIED VIA WHEELCHAIR FOR TRANSPORT, MOTHER OF THE PT PROVIDED TRANSPORTATION
[2020-01-26] MEDS ORDERED: FURO40 PO (13:53)
== END 2020-01-22 14:57 | disposition home or self-care (01) | DRG 308 ==
LOC: ER 05:47 → PCU 09:25
PROVIDERS: Emergency Medicine; Family Medicine; Nurse Practitioner Acute Care; ADMIT Hospitalist
PROC: 5A09357 Assistance with Respiratory Ventilation, Less than 24 Consecutive Hours, Continuous Positive Airway Pressure (ICD-10-PCS; principal; 2020-01-17)
DX: I48.91 Unspecified atrial fibrillation (principal); I50.21 Acute systolic (congestive) heart failure; N17.1 Acute kidney failure with acute cortical necrosis; J44.1 Chronic obstructive pulmonary disease with (acute) exacerbation; I13.0 Hypertensive heart and chronic kidney disease with heart failure and stage 1 through stage 4 chronic kidney disease, or unspecified chronic kidney disease; N18.31 Chronic kidney disease, stage 3a; Z20.828 Contact with and (suspected) exposure to other viral communicable diseases; I73.9 Peripheral vascular disease, unspecified; D63.1 Anemia in chronic kidney disease; K21.9 Gastro-esophageal reflux disease without esophagitis; F17.210 Nicotine dependence, cigarettes, uncomplicated; Z99.81 Dependence on supplemental oxygen; Z91.14 Patient's other noncompliance with medication regimen; Z79.01 Long term (current) use of anticoagulants; Z79.82 Long term (current) use of aspirin; Z86.73 Personal history of transient ischemic attack (TIA), and cerebral infarction without residual deficits
CPT/HCPCS: 0241U; 36415; 36600; 51702; 71045; 80048; 80053; 80162; 82803; 83735; 83880; 84443; 84484; 85025; 93005; 93010; 93306; 94640; 94660; 94762; 96365-59; 96366-59; 96368; 96375-59; 96376-59; 97110; 97116; 97161; 97530; 99285-25; A9270; A9270-GY; J0282; J0456; J1160; J1940; J2060; J2405; J7050; J7060

== ENCOUNTER 2020-01-24 02:36 | Observation (INO) | payer OTHER ==
[~2020-01-24] VITALS: Ht 165.1 cm; Wt 56.7 kg
[~2020-01-24 02:36] MED LIST changes: +Amiodarone HCl200 MG PO
[2020-01-24 03:01] LABS: BASOPHILS ABSOLUTE AUTO 0.06 K/mm3 (0.00-0.23); BASOPHILS PERCENT AUTO 1 % (0-2); EOSINOPHILS ABSOLUTE AUTO 0.15 K/mm3 (0.00-0.68); EOSINOPHILS PERCENT AUTO 2 % (0-6); Hematocrit 27.8 % (33.0-51.0); Hemoglobin 7.4 g/dL (11.5-16.0); IMMATURE GRAN ABSOLUTE AUTO 0.06 K/mm3 (0.00-0.10); IMMATURE GRAN PERCENT AUTO 1 % (0-1); LYMPHOCYTES ABSOLUTE AUTO 1.04 K/mm3 (0.84-5.20); LYMPHOCYTES PERCENT AUTO 11 % (21-46); MONOCYTES ABSOLUTE AUTO 1.08 K/mm3 (0.16-1.47); MONOCYTES PERCENT AUTO 11 % (4-13); Mean Corpuscular HGB Conc 26.6 g/dL (31.5-36.5); Mean Corpuscular Volume 90 fL (80-100); NEUTROPHILS ABSOLUTE AUTO 7.35 K/mm3 (1.96-9.15); NEUTROPHILS PERCENT AUTO 76 % (41-73); Platelet Count 475 K/mm3 (150-400); RDW Coefficient Variation 25.1 % (11.7-14.2); Red Blood Cell Count 3.08 M/mm3 (3.80-5.20); White Blood Cell Count 9.74 K/mm3 (4.00-11.30)
[2020-01-24 03:11] LABS: PCO2 Arterial 55.8 mmHg (35-45); PO2 Arterial 64.2 mmHg (80-100)
[2020-01-24 03:17] LABS: International Normalized Ratio 1.39; Prothrombin Time Results 14.6 Sec (9.7-11.5)
[2020-01-24 03:37] LABS: Digoxin (Lanoxin) 0.97 ug/mL (0.80-2.00)
[2020-01-24 03:54] LABS: Influenza A, PCR Negative (NEGATIVE); Influenza B, PCR Negative (NEGATIVE); Resp Syncytial Virus, PCR Negative (NEGATIVE); SARS-Cov-2 (COVID-19) PCR, MMC Negative (NEGATIVE)
[2020-01-24 04:05] LABS: Albumin, Blood 2.9 g/dL (3.4-5.0); Albumin/Globulin Ratio 0.7 (0.8-1.8); Bilirubin, Total 0.4 mg/dL (0.1-1.0); Bun/Creatinine Ratio 22.9 (12.0-20.0); Creatinine, Blood 1.44 mg/dL (0.40-1.00); Globulin, Blood 4.3 g/dL (2.2-4.0); Potassium, Blood 4.8 mmol/L (3.5-5.5); Total Protein, Blood 7.2 g/dL (6.4-8.2)
[2020-01-24 05:58] LABS: Bun/Creatinine Ratio 24.4 (12.0-20.0); Calcium, Blood 8.8 mg/dL (8.5-10.1); Creatinine, Blood 1.35 mg/dL (0.40-1.00)
[2020-01-24] MEDS ORDERED: BUDESONIDE-FO10.2 G2 INH (12:03)
[2020-01-24] MEDS ORDERED: FUROSEMIDE40 MG PO (12:04)
== END 2020-01-24 12:20 | disposition home or self-care (01) ==
LOC: ER 02:36 → ERHOLD 02:37 → ER 05:00 → ERHOLD 05:00
PROVIDERS: Emergency Medicine; ADMIT Internal Medicine
DX: J96.22 Acute and chronic respiratory failure with hypercapnia (principal); J96.21 Acute and chronic respiratory failure with hypoxia; J43.9 Emphysema, unspecified; I13.0 Hypertensive heart and chronic kidney disease with heart failure and stage 1 through stage 4 chronic kidney disease, or unspecified chronic kidney disease; N18.30 Chronic kidney disease, stage 3 unspecified; I50.23 Acute on chronic systolic (congestive) heart failure; D63.1 Anemia in chronic kidney disease; R77.8 Other specified abnormalities of plasma proteins; E78.5 Hyperlipidemia, unspecified; I73.9 Peripheral vascular disease, unspecified; F17.210 Nicotine dependence, cigarettes, uncomplicated; Z86.73 Personal history of transient ischemic attack (TIA), and cerebral infarction without residual deficits; Z79.82 Long term (current) use of aspirin; Z79.899 Other long term (current) drug therapy; Z99.81 Dependence on supplemental oxygen; Z91.14 Patient's other noncompliance with medication regimen; Z20.828 Contact with and (suspected) exposure to other viral communicable diseases; Z23 Encounter for immunization
CPT/HCPCS: 0241U; 36415; 36600; 71045; 80048; 80053; 80162; 82803; 82947; 83605; 83880; 84145; 84484; 85025; 85610; 85730; 87040; 93005; 93010; 94640; 94760; 96365; 96367; 96375; 99285-25; A9270; A9270-GY; G0378; J0456; J0696; J1100; J1815; J1940; J2405; J7050; J7512

== ENCOUNTER 2020-01-26 13:04 | Inpatient (IN) | payer OTHER ==
[~2020-01-26] VITALS: Ht 165.1 cm; Wt 59.0 kg
[~2020-01-26 13:04] MED LIST changes: +BUDESONIDE-FO10.2 G2 INH; +FUROSEMIDE40 MG PO
[2020-01-26 13:49] LABS: Bicarbonate Venous 28.3 mmol/L (24.0-30.0); PCO2 Venous 63.4 mmHg (38-42); PO2 Venous 57.7 mmHg (38-42)
[2020-01-26] MEDS ORDERED: FURO20 PO (13:53)
[2020-01-26] MEDS ORDERED: IPRAT-ALBUT 0.5-3 ML NEB (13:54)
[2020-01-26] MEDS ORDERED: METOPROLOL TART50 MG PO (13:55)
[2020-01-26] MEDS ORDERED: LORAZEPAM0.5 MG PO (13:55)
[2020-01-26] MEDS ORDERED: AMLO5 PO (13:56)
[2020-01-26] MEDS ORDERED: Protonix40 MG PO (13:56)
[2020-01-26] MEDS ORDERED: CLON.1 PO ×2 (13:57→13:58)
[2020-01-26] MEDS ORDERED: SYMBICORT 160-4.6 GM INH (13:59)
[2020-01-26] MEDS ORDERED: Ventolin/Prove6.7 GM INH (13:59)
[2020-01-26] MEDS ORDERED: NEURONTIN300 MG PO (13:59)
[2020-01-26] MEDS ORDERED: FEROSUL325 M1 PO (14:00)
[2020-01-26] MEDS ORDERED: XARELTO20 MG PO (14:00)
[2020-01-26] MEDS ORDERED: KLOR-CON 1010 MEQ PO (14:00)
[2020-01-26] MEDS ORDERED: Aspir 8181 MG PO (14:01)
[2020-01-26] MEDS ORDERED: ATOR40TA PO (14:03)
[2020-01-26] MEDS ORDERED: PACERONE100 M1 PO (14:03)
[2020-01-26 14:06] LABS: BASOPHILS ABSOLUTE AUTO 0.01 K/mm3 (0.00-0.23); BASOPHILS PERCENT AUTO 0 % (0-2); EOSINOPHILS PERCENT AUTO 0 % (0-6); Hematocrit 25.2 % (33.0-51.0); Hemoglobin 6.9 g/dL (11.5-16.0); IMMATURE GRAN ABSOLUTE AUTO 0.11 K/mm3 (0.00-0.10); IMMATURE GRAN PERCENT AUTO 1 % (0-1); LYMPHOCYTES PERCENT AUTO 4 % (21-46); MONOCYTES ABSOLUTE AUTO 0.62 K/mm3 (0.16-1.47); MONOCYTES PERCENT AUTO 5 % (4-13); Mean Corpuscular HGB 24.8 pg (26.0-34.0); Mean Corpuscular HGB Conc 27.4 g/dL (31.5-36.5); Mean Corpuscular Volume 91 fL (80-100); NEUTROPHILS ABSOLUTE AUTO 11.61 K/mm3 (1.96-9.15); NEUTROPHILS PERCENT AUTO 90 % (41-73); NRBC ABSOLUTE 0.12 K/mm3 (0.00-0.02); NRBC Auto 0.9 /100 WBC (0.0-0.2); Platelet Count 546 K/mm3 (150-400); RDW Coefficient Variation 24.9 % (11.7-14.2); RDW Standard Deviation 81.4 fL (35.1-46.3); Red Blood Cell Count 2.78 M/mm3 (3.80-5.20); White Blood Cell Count 12.85 K/mm3 (4.00-11.30)
[2020-01-26 14:36] LABS: Troponin I 0.037 ng/mL (0.000-0.040)
[2020-01-26 14:39] LABS: Alanine Aminotransfer (ALT/SGP 34 U/L (12-78); Albumin, Blood 3.2 g/dL (3.4-5.0); Albumin/Globulin Ratio 0.8 (0.8-1.8); Alk Phos 121 U/L (50-136); Anion Gap 2 mmol/L (6-16); Aspartate Aminotrans (AST/SGOT 21 U/L (12-37); Bilirubin, Total 0.4 mg/dL (0.1-1.0); Blood Urea Nitrogen 64 mg/dL (8-24); Bun/Creatinine Ratio 38.3 (12.0-20.0); CO2, Blood 33 mmol/L (21-32); Calcium, Blood 9.2 mg/dL (8.5-10.1); Chloride, Blood 97 mmol/L (98-108); Creatinine, Blood 1.67 mg/dL (0.40-1.00); Globulin, Blood 3.9 g/dL (2.2-4.0); Glomerular Filtration Rate 34 (60-); Glucose, Blood 404 mg/dL (70-99); Potassium, Blood 6.2 mmol/L (3.5-5.5); Sodium, Blood 132 mmol/L (136-145); Total Protein, Blood 7.1 g/dL (6.4-8.2)
[2020-01-26 18:16] LABS: Magnesium, Blood 2.4 mg/dL (1.6-2.4); Potassium, Blood 5.2 mmol/L (3.5-5.5)
[2020-01-26 18:34] LABS: Influenza A, PCR Negative (NEGATIVE); Influenza B, PCR Negative (NEGATIVE); Resp Syncytial Virus, PCR Negative (NEGATIVE); SARS-Cov-2 (COVID-19) PCR, MMC Negative (NEGATIVE)
--- NOTE | 2020-01-26 18:46 | NUR ---
PATIENT ARRIVED FROM ED VIA GURNEY, TRANSFERED VIA SLIDER SHEET. PATIENT ON BIPAP, O2 SATS IN LOW 90S. PATIENT IS VERY ANXIOUS, DEEP BREATHING AND GROUNDING TECHNIQUES ENCOURAGED BY THIS RN. PATIENT TOOK PO MEDS VIA APPLESAUCE BECAUSE PATIENT WAS NERVOUS TO SWALLOW MEDS WITH WATER DUE TO BEING SHORT OF BREATH. PATIENT TOLERATED PO INTAKE WELL, BIPAP REAPPLIED. NO SIGNS OF ACUTE DISTRESS AT THIS TIME.
[2020-01-27 04:05] LABS: BASOPHILS PERCENT AUTO 0 % (0-2); EOSINOPHILS PERCENT AUTO 0 % (0-6); Hematocrit 21.8 % (33.0-51.0); IMMATURE GRAN ABSOLUTE AUTO 0.06 K/mm3 (0.00-0.10); IMMATURE GRAN PERCENT AUTO 1 % (0-1); LYMPHOCYTES ABSOLUTE AUTO 1.16 K/mm3 (0.84-5.20); LYMPHOCYTES PERCENT AUTO 10 % (21-46); MONOCYTES ABSOLUTE AUTO 1.63 K/mm3 (0.16-1.47); MONOCYTES PERCENT AUTO 14 % (4-13); Mean Corpuscular HGB 24.1 pg (26.0-34.0); Mean Corpuscular HGB Conc 26.6 g/dL (31.5-36.5); Mean Corpuscular Volume 91 fL (80-100); Mean Platelet Volume 11.2 fL (9.1-12.4); NEUTROPHILS ABSOLUTE AUTO 8.93 K/mm3 (1.96-9.15); NEUTROPHILS PERCENT AUTO 76 % (41-73); NRBC ABSOLUTE 0.13 K/mm3 (0.00-0.02); NRBC Auto 1.1 /100 WBC (0.0-0.2); Platelet Count 435 K/mm3 (150-400); RDW Coefficient Variation 24.6 % (11.7-14.2); RDW Standard Deviation 78.6 fL (35.1-46.3); Red Blood Cell Count 2.41 M/mm3 (3.80-5.20); White Blood Cell Count 11.78 K/mm3 (4.00-11.30)
[2020-01-27 04:07] LABS: Hemoglobin 5.8 g/dL (11.5-16.0)
[2020-01-27 04:23] LABS: Bun/Creatinine Ratio 35.8 (12.0-20.0); Calcium, Blood 8.9 mg/dL (8.5-10.1); Creatinine, Blood 1.65 mg/dL (0.40-1.00); Magnesium, Blood 2.5 mg/dL (1.6-2.4); Potassium, Blood 5.1 mmol/L (3.5-5.5); Troponin I 0.046 ng/mL (0.000-0.040)
--- NOTE | 2020-01-27 05:47 | NUR ---
SUMMARY PATIENT IS ALERT AND ORIENTED. PATIENT IS PASSIVE AGRESSIVE AND HAS ANXIETY. PATIENT REQUESTED ATIVAN, . CALLED FOR ADITTIONAL DOSE, MEDICATED, SEE EMAR. PATIENT EXTREMELY ANXIOUS ABOUT 02, AND WOULD YELL THAT THE OXYGEN WAS NOT WORKING, 02 SATS REMIANED ABOVE 90% ON 3L NC WHILE AWAKE AND BIPAP WHILE SLEEPING. TEACHING PROVIDED ABOUT 02 THERAPY. THIS RN CALLED DR ABOUT HIGH BLOOD GLUCOSE LEVEL, ORDERS RECIEVED, MEDICATED SEE EMAR. PATIENTS Hgb OF 5.8 CALLED TO , ORDERS FOR 2UNITS PRBCs. PATIENT ENCOURAGED TO USE BEDSIDE COMMODE INSTEAD OF BEING INCONTINENT. WOUNDS ON BLE AND BRUISING TO FACE, SEE CHART FOR PICTURE. VSS. CALL LIGHT IN REACH, BED ALARM ON. WILL CONTINUE TO MONITOR.
--- NOTE | 2020-01-27 18:27 | NUR ---
SHIFT NOTE PT HAS BEEN RESTING WELL IN BED T/O THE DAY. ANSWERING QUESTIONS APPROPRIATELY IN FULL SENTENCES. STS THAT HER BREATHING HAS IMPROVED T/O THE DAY. STS THAT SHE HAD ANXIETY TODAY THAT WAS RESOLVED WITH ATIVAN. VSS. PT HAS RECIEVED 2UNITS PRBC TODAY
--- NOTE | 2020-01-28 02:13 | NUR ---
PT DENIES ETOH USE SINCE 2019.
[2020-01-28 04:25] LABS: BASOPHILS ABSOLUTE AUTO 0.01 K/mm3 (0.00-0.23); BASOPHILS PERCENT AUTO 0 % (0-2); EOSINOPHILS ABSOLUTE AUTO 0.01 K/mm3 (0.00-0.68); EOSINOPHILS PERCENT AUTO 0 % (0-6); Hemoglobin 8.2 g/dL (11.5-16.0); IMMATURE GRAN ABSOLUTE AUTO 0.09 K/mm3 (0.00-0.10); IMMATURE GRAN PERCENT AUTO 1 % (0-1); LYMPHOCYTES ABSOLUTE AUTO 0.98 K/mm3 (0.84-5.20); LYMPHOCYTES PERCENT AUTO 9 % (21-46); MONOCYTES ABSOLUTE AUTO 1.25 K/mm3 (0.16-1.47); MONOCYTES PERCENT AUTO 12 % (4-13); Mean Corpuscular HGB 26.1 pg (26.0-34.0); Mean Corpuscular HGB Conc 29.3 g/dL (31.5-36.5); Mean Corpuscular Volume 89 fL (80-100); NEUTROPHILS ABSOLUTE AUTO 8.14 K/mm3 (1.96-9.15); NEUTROPHILS PERCENT AUTO 78 % (41-73); NRBC ABSOLUTE 0.18 K/mm3 (0.00-0.02); NRBC Auto 1.7 /100 WBC (0.0-0.2); Platelet Count 360 K/mm3 (150-400); RDW Standard Deviation 67.4 fL (35.1-46.3); Red Blood Cell Count 3.14 M/mm3 (3.80-5.20); White Blood Cell Count 10.48 K/mm3 (4.00-11.30)
[2020-01-28 04:46] LABS: Bun/Creatinine Ratio 30.7 (12.0-20.0); Calcium, Blood 8.5 mg/dL (8.5-10.1); Creatinine, Blood 1.66 mg/dL (0.40-1.00); Prealbumin, Blood 19.3 mg/dL (20.0-40.0)
--- NOTE | 2020-01-28 06:01 | NUR ---
SHIFT SUMMARY - PT HAD 2 LARGE GREENISH DARK BROWN STOOLS TONIGHT - INCONTINENT X2. PT'S SATS WNL ON 3.5 L THROUGHOUT THE NIGHT, CONTINUOUS BIOX ON. PT MEDICATED X1 WITH ZOFRAN THIS AM FOR NAUSEA - NAUSEA RELIEVED WITH ZOFRAN. NO ACUTE EVENTS THROUGHOUT THE NIGHT. PT SLEPT FOR INTERMITTENT PERIODS THROUGHOUT THE NIGHT. CALL LIGHT WITHIN REACH. NEW MEPILEX APPLIED TO COCCYX AREA - STAGE 2 PRESSURE ULCER APPX DIME SIZE.
--- NOTE | 2020-01-28 06:46 | NUR ---
PT'S SATS DROPPED TO 80-81 % - O2 UP TO 4L - OXYGEN NOT RESPONDING TO DEEP BREATHS, AND INCREASE IN O2. PULLED OXYGEN OFF TO PLACE BIPAP ON - SATS RECOVERED TO 89-90% BACK ON 4L. RT CALLED - HOWEVER SATS WNL NOW.
--- NOTE | 2020-01-28 06:53 | NUR ---
BIPAP WITH 3L PLACED ON - SATS 92-93%, SATS BEGAN TO DROP AGAIN 87% ON 4L OXYGEN VIA NC - CONTINUOUS BIOX ON.
--- NOTE | 2020-01-28 10:55 | NUR ---
THIS RN AND PCT TO ROOM PT REPORTS COUGHING AND SOB, ROOM NOTED TO SMELL STRONGLY OF MARIJUANA, CREATIVE RECRUITER IS NOTIFIED, THIS RN AND CREATIVE RECRUITER TO ROOM TO ADDRESS THE SMELL OF MARIJUANA PT DENIES ANY MARIJUANA USE, HAS HER PURSE TIGHT AGAINST ABD. PT REFUSED TO ALLOW STAFF TO INSPECT HER PURSE FOR MARIJUANA BUT ASSURES STAFF THAT SHE DOES NOT HAVE ANY MARIJUANA ON HER OR IN HER PURSE
--- NOTE | 2020-01-28 12:29 | NUR ---
PATIENT WAS ON BIPAP WHEN VITALS WERE TAKEN.
--- NOTE | 2020-01-28 15:50 | NUR ---
3 RAILS LEFT UP PER PATIENTS REQUEST.
--- NOTE | 2020-01-28 16:42 | NUR ---
SHIFT NOTE PT HAS BEEN ANXIOUS T/O THE DAY, PT REPORTS SOB WITH HER ANXIETY INCREASES. PT WAS TREATED WITH ATIVAN X2 TODAY FOR ANXIETY. PT DOES SEEM TO TOLERATE NC BETTER THAN BIPAP, SPO2 REMAINS IN HIGH 90s ON BOTH NC AND BIPAP. PT ALERT ANSWERING QUESTIONS APPROPRIATELY. PT DID HAVE SOME EPISODES OF AGITATION BUT SHE IS REDIRECTABLE
--- NOTE | 2020-01-28 19:10 | NUR ---
ASSUMED CARE RECEIVED BEDSIDE REPORT FROM CASEY BARROS; PT A&O; VSS; RT TO BEDSIDE FOR BREATHING TX; NO DISTRESS NOTED; CALL LIGHT IN REACH; BED IN LOWEST POSITION.
--- NOTE | 2020-01-28 21:00 | NUR ---
UPDATE PT HAS INCREASING ANXIETY; C/O "CAN'T BREATH"; PT COACHED ON RELAXATION AND DEEP BREATHING; O2 SATS >93 6L NC; DISCUSSED W/ PT WHAT SHE NORMALLY DOES TO COPE W/ STRESS/ANXIETY, WELL NICOTINE DEPENDENCE; PT ENCOURAGED TO LISTEN TO MUSIC OR WATCH TV FOR DISTRACTION MEASURES; NOTIFIED; NEW ORDER GIVEN FOR 1X ATIVAN AND NICOTINE PATCH; REFER TO EMAR; CALL LIGHT IN REACH; BED IN LOWEST POSITION.
[2020-01-29 04:24] LABS: BASOPHILS ABSOLUTE AUTO 0.01 K/mm3 (0.00-0.23); BASOPHILS PERCENT AUTO 0 % (0-2); EOSINOPHILS ABSOLUTE AUTO 0.04 K/mm3 (0.00-0.68); EOSINOPHILS PERCENT AUTO 0 % (0-6); Hematocrit 28.8 % (33.0-51.0); Hemoglobin 8.3 g/dL (11.5-16.0); IMMATURE GRAN ABSOLUTE AUTO 0.15 K/mm3 (0.00-0.10); IMMATURE GRAN PERCENT AUTO 2 % (0-1); LYMPHOCYTES ABSOLUTE AUTO 1.02 K/mm3 (0.84-5.20); LYMPHOCYTES PERCENT AUTO 11 % (21-46); MONOCYTES ABSOLUTE AUTO 0.88 K/mm3 (0.16-1.47); MONOCYTES PERCENT AUTO 10 % (4-13); Mean Corpuscular HGB 26.4 pg (26.0-34.0); Mean Corpuscular HGB Conc 28.8 g/dL (31.5-36.5); Mean Corpuscular Volume 92 fL (80-100); Mean Platelet Volume 11.2 fL (9.1-12.4); NEUTROPHILS ABSOLUTE AUTO 7.02 K/mm3 (1.96-9.15); NEUTROPHILS PERCENT AUTO 77 % (41-73); NRBC ABSOLUTE 0.06 K/mm3 (0.00-0.02); NRBC Auto 0.7 /100 WBC (0.0-0.2); Platelet Count 350 K/mm3 (150-400); RDW Coefficient Variation 20.7 % (11.7-14.2); RDW Standard Deviation 69.1 fL (35.1-46.3); Red Blood Cell Count 3.14 M/mm3 (3.80-5.20); White Blood Cell Count 9.12 K/mm3 (4.00-11.30)
[2020-01-29 04:39] LABS: Calcium, Blood 8.6 mg/dL (8.5-10.1); Creatinine, Blood 1.45 mg/dL (0.40-1.00); Potassium, Blood 3.7 mmol/L (3.5-5.5)
--- NOTE | 2020-01-29 05:10 | NUR ---
SHIFT SUMMARY PT A&O; VSS; DENIES CHEST PAIN; O2 SATS >93 ON 4L NC; PT SLEPT SEVERAL HOURS IN BETWEEN INTERVENTIONS; PT HAD LARGE BM THIS SHIFT; NO DISTRESS NOTED; PT CURRENTLY SLEEPING; CALL LIGHT IN REACH; BED IN LOWEST POSITION; WILL CONTINUE TO MONITOR CLOSELY UNTIL HAND OFF TO DAY SHIFT RN.
--- NOTE | 2020-01-29 12:00 | NUR ---
PT STS THAT SHE HAS SUDDEN ONSET OF "PANCREAS" PAIN PT DEMANDS THAT SHE RECIEVE DILAUDID FOR PAIN. DR TRAORE IS CONSULTED, NO NEW ORDERS FOR PAIN MEDICATION WERE RECIEVED AT THIS TIME. PT REQUESTS TO LEAVE SHE IS ANXIOUS, BUT EXPRESSED CONCERN ABOUT HER PENDING A1C, PT IS EDUCATED ABOUT STAYING UTNIL HER LAB RESULTS RETURN. V/O OBTAINED TO CHANGED BID ATIVAN TO TID ATIVAN, PT WILL RECIEVE ADDITIONAL DOSE OF ATIVAN
--- NOTE | 2020-01-29 18:37 | NUR ---
SHIFT NOTE PT HAS BEEN RESTING WELL AT BEDSIDE T/O THE DAY. SEE NOTES ABOUT PTS REQUEST TO LEAVE TODAY. PT HAS AGREED TO STAY FOR THE DAY AND BE D/C TOMORROW WHEN A1C RESULTS COME BACK. VSS. PT REPORTS SOME INTERMITTENT RUQ PAIN WITH EATING TODAY WHICH IS TREATED WITH TYLENOL. PT HAS BEEN TREATED X2 TODAY FOR ANXIETY WITH ATIVAN WHICH WAS TOLERATED WELL. PT HAS BEEN CALM AND COOPERATIVE SHE IS ANXIOUS ABOUT HER CAT THAT IS HOME AND ABOUT TO HAVE KITTENS. JUSTIN.
[2020-01-29 19:38] LABS: Vancomycin, Trough 19.1 ug/mL (5.0-10.0)
[2020-01-30 04:00] LABS: BASOPHILS ABSOLUTE AUTO 0.03 K/mm3 (0.00-0.23); BASOPHILS PERCENT AUTO 0 % (0-2); EOSINOPHILS ABSOLUTE AUTO 0.17 K/mm3 (0.00-0.68); EOSINOPHILS PERCENT AUTO 2 % (0-6); Hematocrit 31.8 % (33.0-51.0); Hemoglobin 8.9 g/dL (11.5-16.0); IMMATURE GRAN ABSOLUTE AUTO 0.14 K/mm3 (0.00-0.10); IMMATURE GRAN PERCENT AUTO 2 % (0-1); LYMPHOCYTES ABSOLUTE AUTO 1.14 K/mm3 (0.84-5.20); LYMPHOCYTES PERCENT AUTO 12 % (21-46); MONOCYTES ABSOLUTE AUTO 0.72 K/mm3 (0.16-1.47); MONOCYTES PERCENT AUTO 8 % (4-13); Mean Corpuscular HGB 25.9 pg (26.0-34.0); Mean Corpuscular Volume 92 fL (80-100); Mean Platelet Volume 10.6 fL (9.1-12.4); NEUTROPHILS ABSOLUTE AUTO 7.29 K/mm3 (1.96-9.15); NEUTROPHILS PERCENT AUTO 77 % (41-73); NRBC ABSOLUTE 0.02 K/mm3 (0.00-0.02); NRBC Auto 0.2 /100 WBC (0.0-0.2); Platelet Count 368 K/mm3 (150-400); RDW Coefficient Variation 20.9 % (11.7-14.2); RDW Standard Deviation 70.3 fL (35.1-46.3); Red Blood Cell Count 3.44 M/mm3 (3.80-5.20); White Blood Cell Count 9.49 K/mm3 (4.00-11.30)
[2020-01-30 04:20] LABS: Albumin, Blood 2.8 g/dL (3.4-5.0); Albumin/Globulin Ratio 0.8 (0.8-1.8); Bilirubin, Total 0.4 mg/dL (0.1-1.0); Bun/Creatinine Ratio 26.2 (12.0-20.0); Calcium, Blood 8.9 mg/dL (8.5-10.1); Creatinine, Blood 1.45 mg/dL (0.40-1.00); Globulin, Blood 3.6 g/dL (2.2-4.0); Potassium, Blood 4.3 mmol/L (3.5-5.5); Total Protein, Blood 6.4 g/dL (6.4-8.2)
--- NOTE | 2020-01-30 07:41 | NUR ---
SHIFT SUMMARY PATIENT PLEASENT AND COOPERATIVE THROUGHOUT THE NIGHT. PATIENT APPEARED TO NAP WELL ON AND OFF THROUGHOUT THE NIGHT. PATIENT TITRATED DOWN TO 2L THIS MORNING, WHICH PATIENT REPORTS IS BASELINE FOR HER, HOWEVER PATIENT REQUESTED O2 TO BE INCREASED WITH ACTIVITY WHEN SHE WAS MOVING TO THE [facility] AND BACK. PATIENT MEDICATED FOR NAUSEA AND PAIN PER EMAR. PATIENT VERY HOPFUL TO GO HOME TODAY. REPORT GIVEN TO ONCOMING RN.
--- NOTE | 2020-01-30 08:21 | NUR ---
ASSUMED CARE OF PT AFTER RECEIVING REPORT FROM CASEY MURRAY. PT SITTING ON SIDE OF BED AT THIS TIME WITH BREAKFAST TRAY, TAKES MORNING MEDICATIONS WITHOUT DIFFICULTY. DR DAVE TO ROOM FOR [facility].
[2020-01-30] MEDS ORDERED: AMOCLA875 PO (09:12)
[2020-01-30] MEDS ORDERED: AZIT250 PO (09:14)
[2020-01-30] MEDS ORDERED: TUMS500 MG PO (09:14)
[2020-01-30] MEDS ORDERED: NICO21TP TOP (09:15)
[2020-01-30] MEDS ORDERED: PROBIOTIC PO (09:24)
[2020-01-30] MEDS ORDERED: FURO20 PO (09:51)
== END 2020-01-30 11:42 | disposition home health service (06) | DRG 291 ==
LOC: ER 13:04 → PCU 16:15
PROVIDERS: Emergency Medicine; Pharmacist; ADMIT Family Medicine
PROC: 5A09357 Assistance with Respiratory Ventilation, Less than 24 Consecutive Hours, Continuous Positive Airway Pressure (ICD-10-PCS; principal; 2020-01-26)
DX: I13.0 Hypertensive heart and chronic kidney disease with heart failure and stage 1 through stage 4 chronic kidney disease, or unspecified chronic kidney disease (principal); J96.21 Acute and chronic respiratory failure with hypoxia; J96.22 Acute and chronic respiratory failure with hypercapnia; I50.43 Acute on chronic combined systolic (congestive) and diastolic (congestive) heart failure; N17.9 Acute kidney failure, unspecified; E87.1 Hypo-osmolality and hyponatremia; I48.92 Unspecified atrial flutter; E44.0 Moderate protein-calorie malnutrition; J84.9 Interstitial pulmonary disease, unspecified; Z20.828 Contact with and (suspected) exposure to other viral communicable diseases; Z79.82 Long term (current) use of aspirin; J43.9 Emphysema, unspecified; I73.9 Peripheral vascular disease, unspecified; Z86.73 Personal history of transient ischemic attack (TIA), and cerebral infarction without residual deficits; F17.210 Nicotine dependence, cigarettes, uncomplicated; Z99.81 Dependence on supplemental oxygen; F12.20 Cannabis dependence, uncomplicated; E87.5 Hyperkalemia; D50.9 Iron deficiency anemia, unspecified; N18.30 Chronic kidney disease, stage 3 unspecified; Z91.14 Patient's other noncompliance with medication regimen
CPT/HCPCS: 0241U; 36415; 36430; 71045; 71260; 80048; 80053; 80202; 82803; 82947; 83036; 83605; 83735; 83880; 84132; 84134; 84145; 84484; 85025; 85379; 86850; 86900; 86901; 86923; 93005; 93010; 94640; 94660; 94761; 94762; 96374-59; 97116; 97161; 97166; 99285-25; A9270; A9270-GY; J1815; J1940; J1956; J2405; J3370; J7030; J7050; P9016; Q9967

== ENCOUNTER 2020-01-31 00:06 | Emergency (ER) | payer OTHER ==
[~2020-01-31] VITALS: Ht 165.1 cm; Wt 54.4 kg
[~2020-01-31 00:06] MED LIST changes: +AMOCLA875 PO; +AZIT250 PO; +Aspir 8181 MG PO; +FEROSUL325 M1 PO; +IPRAT-ALBUT 0.5-3 ML NEB; +KLOR-CON 1010 MEQ PO; +LORAZEPAM0.5 MG PO; +METOPROLOL TART50 MG PO; +NEURONTIN300 MG PO; +PACERONE100 M1 PO; +PROBIOTIC PO; +Protonix40 MG PO; +SYMBICORT 160-4.6 GM INH; +TUMS500 MG PO; +Ventolin/Prove6.7 GM INH; +XARELTO20 MG PO
[2020-01-31 00:26] LABS: BASOPHILS ABSOLUTE AUTO 0.03 K/mm3 (0.00-0.23); BASOPHILS PERCENT AUTO 0 % (0-2); EOSINOPHILS ABSOLUTE AUTO 0.12 K/mm3 (0.00-0.68); EOSINOPHILS PERCENT AUTO 1 % (0-6); Hematocrit 31.9 % (33.0-51.0); Hemoglobin 8.7 g/dL (11.5-16.0); IMMATURE GRAN ABSOLUTE AUTO 0.15 K/mm3 (0.00-0.10); IMMATURE GRAN PERCENT AUTO 1 % (0-1); LYMPHOCYTES ABSOLUTE AUTO 0.53 K/mm3 (0.84-5.20); LYMPHOCYTES PERCENT AUTO 4 % (21-46); MONOCYTES ABSOLUTE AUTO 0.59 K/mm3 (0.16-1.47); MONOCYTES PERCENT AUTO 4 % (4-13); Mean Corpuscular HGB 25.4 pg (26.0-34.0); Mean Corpuscular HGB Conc 27.3 g/dL (31.5-36.5); Mean Corpuscular Volume 93 fL (80-100); Mean Platelet Volume 10.6 fL (9.1-12.4); NEUTROPHILS ABSOLUTE AUTO 12.55 K/mm3 (1.96-9.15); NEUTROPHILS PERCENT AUTO 90 % (41-73); NRBC ABSOLUTE 0.02 K/mm3 (0.00-0.02); NRBC Auto 0.1 /100 WBC (0.0-0.2); Platelet Count 369 K/mm3 (150-400); RDW Coefficient Variation 20.8 % (11.7-14.2); RDW Standard Deviation 69.7 fL (35.1-46.3); Red Blood Cell Count 3.43 M/mm3 (3.80-5.20); White Blood Cell Count 13.97 K/mm3 (4.00-11.30)
[2020-01-31 00:45] LABS: Albumin/Globulin Ratio 0.8 (0.8-1.8); Bilirubin, Total 0.4 mg/dL (0.1-1.0); Calcium, Blood 8.9 mg/dL (8.5-10.1); Creatinine, Blood 1.31 mg/dL (0.40-1.00); Globulin, Blood 3.8 g/dL (2.2-4.0); Magnesium, Blood 2.5 mg/dL (1.6-2.4); Potassium, Blood 4.7 mmol/L (3.5-5.5); Total Protein, Blood 6.8 g/dL (6.4-8.2); Troponin I 0.039 ng/mL (0.000-0.040)
== END 2020-01-31 01:13 | disposition home or self-care (01) ==
LOC: ER 00:06
PROVIDERS: Emergency Medicine
DX: J43.9 Emphysema, unspecified (principal); F41.0 Panic disorder [episodic paroxysmal anxiety]; I13.0 Hypertensive heart and chronic kidney disease with heart failure and stage 1 through stage 4 chronic kidney disease, or unspecified chronic kidney disease; N18.9 Chronic kidney disease, unspecified; I50.9 Heart failure, unspecified; I48.92 Unspecified atrial flutter; D64.9 Anemia, unspecified; E78.5 Hyperlipidemia, unspecified; F17.210 Nicotine dependence, cigarettes, uncomplicated; Z79.01 Long term (current) use of anticoagulants; Z79.51 Long term (current) use of inhaled steroids; Z86.73 Personal history of transient ischemic attack (TIA), and cerebral infarction without residual deficits; Z79.899 Other long term (current) drug therapy
CPT/HCPCS: 71045; 80053; 83735; 83880; 84484; 85025; 93005; 93010; 99284-25; J2060

== ENCOUNTER 2020-02-01 00:14 | Inpatient (IN) | payer OTHER ==
[~2020-02-01] VITALS: Ht 165.1 cm; Wt 61.8 kg
[2020-02-01 00:50] LABS: BASOPHILS ABSOLUTE AUTO 0.04 K/mm3 (0.00-0.23); BASOPHILS PERCENT AUTO 0 % (0-2); EOSINOPHILS PERCENT AUTO 0 % (0-6); Hematocrit 33.3 % (33.0-51.0); Hemoglobin 8.9 g/dL (11.5-16.0); IMMATURE GRAN ABSOLUTE AUTO 0.17 K/mm3 (0.00-0.10); IMMATURE GRAN PERCENT AUTO 1 % (0-1); LYMPHOCYTES ABSOLUTE AUTO 2.21 K/mm3 (0.84-5.20); LYMPHOCYTES PERCENT AUTO 11 % (21-46); MONOCYTES ABSOLUTE AUTO 1.76 K/mm3 (0.16-1.47); MONOCYTES PERCENT AUTO 9 % (4-13); Mean Corpuscular HGB 25.2 pg (26.0-34.0); Mean Corpuscular HGB Conc 26.7 g/dL (31.5-36.5); Mean Corpuscular Volume 94 fL (80-100); Mean Platelet Volume 11.3 fL (9.1-12.4); NEUTROPHILS ABSOLUTE AUTO 16.47 K/mm3 (1.96-9.15); NEUTROPHILS PERCENT AUTO 80 % (41-73); NRBC ABSOLUTE 0.06 K/mm3 (0.00-0.02); NRBC Auto 0.3 /100 WBC (0.0-0.2); Platelet Count 487 K/mm3 (150-400); RDW Coefficient Variation 21.7 % (11.7-14.2); RDW Standard Deviation 72.6 fL (35.1-46.3); Red Blood Cell Count 3.53 M/mm3 (3.80-5.20); White Blood Cell Count 20.65 K/mm3 (4.00-11.30)
[2020-02-01 01:02] LABS: Bun/Creatinine Ratio 36.3 (12.0-20.0); Calcium, Blood 9.4 mg/dL (8.5-10.1); Creatinine, Blood 1.35 mg/dL (0.40-1.00); Potassium, Blood 4.8 mmol/L (3.5-5.5)
[2020-02-01 01:19] LABS: Base Excess Venous 7.3 mmol/L; Bicarbonate Venous 29.3 mmol/L (24.0-30.0); PCO2 Venous 85.6 mmHg (38-42); PO2 Venous 41.4 mmHg (38-42); pH Blood Venous 7.22 (7.34-7.37)
[2020-02-01 02:42] LABS: Glucose, Blood 682 mg/dL (70-99)
[2020-02-01 04:10] LABS: Glucose, Blood 693 mg/dL (70-99)
[2020-02-01 06:14] LABS: BASOPHILS ABSOLUTE AUTO 0.02 K/mm3 (0.00-0.23); BASOPHILS PERCENT AUTO 0 % (0-2); EOSINOPHILS PERCENT AUTO 0 % (0-6); Hematocrit 27.7 % (33.0-51.0); Hemoglobin 7.6 g/dL (11.5-16.0); IMMATURE GRAN ABSOLUTE AUTO 0.09 K/mm3 (0.00-0.10); IMMATURE GRAN PERCENT AUTO 1 % (0-1); LYMPHOCYTES ABSOLUTE AUTO 0.22 K/mm3 (0.84-5.20); LYMPHOCYTES PERCENT AUTO 1 % (21-46); MONOCYTES ABSOLUTE AUTO 0.35 K/mm3 (0.16-1.47); MONOCYTES PERCENT AUTO 2 % (4-13); Mean Corpuscular HGB 25.8 pg (26.0-34.0); Mean Corpuscular HGB Conc 27.4 g/dL (31.5-36.5); Mean Corpuscular Volume 94 fL (80-100); Mean Platelet Volume 11.2 fL (9.1-12.4); NEUTROPHILS ABSOLUTE AUTO 15.99 K/mm3 (1.96-9.15); NEUTROPHILS PERCENT AUTO 96 % (41-73); NRBC ABSOLUTE 0.02 K/mm3 (0.00-0.02); NRBC Auto 0.1 /100 WBC (0.0-0.2); Platelet Count 326 K/mm3 (150-400); RDW Coefficient Variation 20.5 % (11.7-14.2); RDW Standard Deviation 69.5 fL (35.1-46.3); Red Blood Cell Count 2.95 M/mm3 (3.80-5.20); White Blood Cell Count 16.67 K/mm3 (4.00-11.30)
[2020-02-01 06:31] LABS: Albumin/Globulin Ratio 0.8 (0.8-1.8); Bilirubin, Total 0.4 mg/dL (0.1-1.0); Calcium, Blood 9.2 mg/dL (8.5-10.1); Creatinine, Blood 1.38 mg/dL (0.40-1.00); Globulin, Blood 3.8 g/dL (2.2-4.0); Potassium, Blood 4.5 mmol/L (3.5-5.5); Total Protein, Blood 6.8 g/dL (6.4-8.2)
[2020-02-01 07:40] LABS: Glucose, Blood 541 mg/dL (70-99)
[2020-02-01 08:31] LABS: Glucose, Blood 548 mg/dL (70-99)
[2020-02-01 08:32] LABS: PCO2 Arterial 63.5 mmHg (35-45); PO2 Arterial 58.2 mmHg (80-100); pH Blood Arterial 7.37 (7.35-7.45)
[2020-02-01 09:30] LABS: Glucose, Blood 447 mg/dL (70-99)
[2020-02-01 09:38] LABS: Troponin I 0.054 ng/mL (0.000-0.040)
[2020-02-01 16:23] LABS: Troponin I 0.066 ng/mL (0.000-0.040)
[2020-02-02 04:16] LABS: BASOPHILS ABSOLUTE AUTO 0.01 K/mm3 (0.00-0.23); BASOPHILS PERCENT AUTO 0 % (0-2); EOSINOPHILS PERCENT AUTO 0 % (0-6); Hematocrit 24.9 % (33.0-51.0); Hemoglobin 6.9 g/dL (11.5-16.0); IMMATURE GRAN ABSOLUTE AUTO 0.07 K/mm3 (0.00-0.10); IMMATURE GRAN PERCENT AUTO 0 % (0-1); LYMPHOCYTES ABSOLUTE AUTO 1.47 K/mm3 (0.84-5.20); LYMPHOCYTES PERCENT AUTO 9 % (21-46); MONOCYTES ABSOLUTE AUTO 1.04 K/mm3 (0.16-1.47); MONOCYTES PERCENT AUTO 6 % (4-13); Mean Corpuscular HGB 25.7 pg (26.0-34.0); Mean Corpuscular HGB Conc 27.7 g/dL (31.5-36.5); Mean Corpuscular Volume 93 fL (80-100); Mean Platelet Volume 11.8 fL (9.1-12.4); NEUTROPHILS ABSOLUTE AUTO 13.77 K/mm3 (1.96-9.15); NEUTROPHILS PERCENT AUTO 84 % (41-73); Platelet Count 331 K/mm3 (150-400); RDW Coefficient Variation 20.9 % (11.7-14.2); RDW Standard Deviation 70.4 fL (35.1-46.3); Red Blood Cell Count 2.68 M/mm3 (3.80-5.20); White Blood Cell Count 16.36 K/mm3 (4.00-11.30)
[2020-02-02 04:34] LABS: Percent Saturation 3.7 % (15.0-50.0)
[2020-02-02 04:36] LABS: PCO2 Arterial 51.5 mmHg (35-45); pH Blood Arterial 7.47 (7.35-7.45)
[2020-02-02 05:11] LABS: Albumin, Blood 2.5 g/dL (3.4-5.0); Albumin/Globulin Ratio 0.8 (0.8-1.8); Bilirubin, Total 0.4 mg/dL (0.1-1.0); Bun/Creatinine Ratio 38.6 (12.0-20.0); Calcium, Blood 8.5 mg/dL (8.5-10.1); Creatinine, Blood 1.45 mg/dL (0.40-1.00); Globulin, Blood 3.1 g/dL (2.2-4.0); Magnesium, Blood 2.5 mg/dL (1.6-2.4); Phosphorus, Blood 3.5 mg/dL (2.5-4.9); Total Protein, Blood 5.6 g/dL (6.4-8.2)
[2020-02-02 13:28] LABS: Stool Occult Blood Guaiac 1 Pos (Neg)
[2020-02-03 03:39] LABS: BASOPHILS ABSOLUTE AUTO 0.03 K/mm3 (0.00-0.23); BASOPHILS PERCENT AUTO 0 % (0-2); EOSINOPHILS ABSOLUTE AUTO 0.03 K/mm3 (0.00-0.68); EOSINOPHILS PERCENT AUTO 0 % (0-6); Hematocrit 30.4 % (33.0-51.0); Hemoglobin 8.3 g/dL (11.5-16.0); IMMATURE GRAN ABSOLUTE AUTO 0.06 K/mm3 (0.00-0.10); IMMATURE GRAN PERCENT AUTO 0 % (0-1); LYMPHOCYTES ABSOLUTE AUTO 2.03 K/mm3 (0.84-5.20); LYMPHOCYTES PERCENT AUTO 14 % (21-46); MONOCYTES ABSOLUTE AUTO 1.36 K/mm3 (0.16-1.47); MONOCYTES PERCENT AUTO 10 % (4-13); Mean Corpuscular HGB 24.9 pg (26.0-34.0); Mean Corpuscular HGB Conc 27.3 g/dL (31.5-36.5); Mean Corpuscular Volume 91 fL (80-100); Mean Platelet Volume 10.8 fL (9.1-12.4); NEUTROPHILS ABSOLUTE AUTO 10.76 K/mm3 (1.96-9.15); NEUTROPHILS PERCENT AUTO 76 % (41-73); NRBC ABSOLUTE 0.05 K/mm3 (0.00-0.02); NRBC Auto 0.4 /100 WBC (0.0-0.2); Platelet Count 322 K/mm3 (150-400); RDW Coefficient Variation 21.2 % (11.7-14.2); RDW Standard Deviation 70.2 fL (35.1-46.3); Red Blood Cell Count 3.34 M/mm3 (3.80-5.20); White Blood Cell Count 14.27 K/mm3 (4.00-11.30)
[2020-02-03 03:52] LABS: Bun/Creatinine Ratio 30.5 (12.0-20.0); Calcium, Blood 8.8 mg/dL (8.5-10.1); Creatinine, Blood 1.67 mg/dL (0.40-1.00); Potassium, Blood 4.4 mmol/L (3.5-5.5)
[2020-02-03 05:08] LABS: PCO2 Arterial 57.6 mmHg (35-45); PO2 Arterial 55.6 mmHg (80-100); pH Blood Arterial 7.42 (7.35-7.45)
[2020-02-04 04:48] LABS: BASOPHILS ABSOLUTE AUTO 0.03 K/mm3 (0.00-0.23); BASOPHILS PERCENT AUTO 0 % (0-2); EOSINOPHILS ABSOLUTE AUTO 0.06 K/mm3 (0.00-0.68); EOSINOPHILS PERCENT AUTO 1 % (0-6); Hematocrit 29.7 % (33.0-51.0); Hemoglobin 8.3 g/dL (11.5-16.0); IMMATURE GRAN ABSOLUTE AUTO 0.11 K/mm3 (0.00-0.10); IMMATURE GRAN PERCENT AUTO 1 % (0-1); LYMPHOCYTES ABSOLUTE AUTO 1.47 K/mm3 (0.84-5.20); LYMPHOCYTES PERCENT AUTO 15 % (21-46); MONOCYTES ABSOLUTE AUTO 0.97 K/mm3 (0.16-1.47); MONOCYTES PERCENT AUTO 10 % (4-13); Mean Corpuscular HGB 25.7 pg (26.0-34.0); Mean Corpuscular HGB Conc 27.9 g/dL (31.5-36.5); Mean Corpuscular Volume 92 fL (80-100); Mean Platelet Volume 11.8 fL (9.1-12.4); NEUTROPHILS PERCENT AUTO 72 % (41-73); NRBC ABSOLUTE 0.03 K/mm3 (0.00-0.02); NRBC Auto 0.3 /100 WBC (0.0-0.2); Platelet Count 292 K/mm3 (150-400); RDW Coefficient Variation 20.2 % (11.7-14.2); RDW Standard Deviation 67.4 fL (35.1-46.3); Red Blood Cell Count 3.23 M/mm3 (3.80-5.20); White Blood Cell Count 9.54 K/mm3 (4.00-11.30)
[2020-02-04 05:07] LABS: Albumin, Blood 2.9 g/dL (3.4-5.0); Anion Gap 2 mmol/L (6-16); Blood Urea Nitrogen 40 mg/dL (8-24); Bun/Creatinine Ratio 24.1 (12.0-20.0); CO2, Blood 38 mmol/L (21-32); Calcium, Blood 8.7 mg/dL (8.5-10.1); Chloride, Blood 99 mmol/L (98-108); Creatinine, Blood 1.66 mg/dL (0.40-1.00); Glomerular Filtration Rate 34 (60-); Glucose, Blood 204 mg/dL (70-99); Phosphorus, Blood 4.6 mg/dL (2.5-4.9); Potassium, Blood 4.2 mmol/L (3.5-5.5); Sodium, Blood 139 mmol/L (136-145)
[2020-02-05 04:32] LABS: BASOPHILS ABSOLUTE AUTO 0.05 K/mm3 (0.00-0.23); BASOPHILS PERCENT AUTO 0 % (0-2); EOSINOPHILS ABSOLUTE AUTO 0.18 K/mm3 (0.00-0.68); EOSINOPHILS PERCENT AUTO 1 % (0-6); Hematocrit 32.3 % (33.0-51.0); Hemoglobin 8.6 g/dL (11.5-16.0); IMMATURE GRAN ABSOLUTE AUTO 0.24 K/mm3 (0.00-0.10); IMMATURE GRAN PERCENT AUTO 2 % (0-1); LYMPHOCYTES ABSOLUTE AUTO 1.42 K/mm3 (0.84-5.20); LYMPHOCYTES PERCENT AUTO 11 % (21-46); MONOCYTES PERCENT AUTO 9 % (4-13); Mean Corpuscular HGB 25.6 pg (26.0-34.0); Mean Corpuscular HGB Conc 26.6 g/dL (31.5-36.5); Mean Corpuscular Volume 96 fL (80-100); Mean Platelet Volume 10.8 fL (9.1-12.4); NEUTROPHILS ABSOLUTE AUTO 9.96 K/mm3 (1.96-9.15); NEUTROPHILS PERCENT AUTO 76 % (41-73); NRBC ABSOLUTE 0.09 K/mm3 (0.00-0.02); NRBC Auto 0.7 /100 WBC (0.0-0.2); Platelet Count 329 K/mm3 (150-400); RDW Coefficient Variation 20.6 % (11.7-14.2); RDW Standard Deviation 69.4 fL (35.1-46.3); Red Blood Cell Count 3.36 M/mm3 (3.80-5.20); White Blood Cell Count 13.05 K/mm3 (4.00-11.30)
[2020-02-05 04:48] LABS: Albumin, Blood 3.1 g/dL (3.4-5.0); Anion Gap 1 mmol/L (6-16); Blood Urea Nitrogen 44 mg/dL (8-24); Bun/Creatinine Ratio 22.4 (12.0-20.0); CO2, Blood 37 mmol/L (21-32); Calcium, Blood 9.1 mg/dL (8.5-10.1); Chloride, Blood 100 mmol/L (98-108); Creatinine, Blood 1.96 mg/dL (0.40-1.00); Glomerular Filtration Rate 28 (60-); Glucose, Blood 115 mg/dL (70-99); Phosphorus, Blood 6.2 mg/dL (2.5-4.9); Potassium, Blood 4.9 mmol/L (3.5-5.5); Sodium, Blood 138 mmol/L (136-145)
[2020-02-05 12:18] LABS: Hemoglobin 8.4 g/dL (11.5-16.0)
[2020-02-06 03:22] LABS: Hematocrit 29.9 % (33.0-51.0); Hemoglobin 8.2 g/dL (11.5-16.0); Mean Corpuscular HGB 26.2 pg (26.0-34.0); Mean Corpuscular HGB Conc 27.4 g/dL (31.5-36.5); Mean Corpuscular Volume 96 fL (80-100); Mean Platelet Volume 11.5 fL (9.1-12.4); NRBC ABSOLUTE 0.14 K/mm3 (0.00-0.02); NRBC Auto 0.8 /100 WBC (0.0-0.2); Platelet Count 304 K/mm3 (150-400); RDW Coefficient Variation 21.8 % (11.7-14.2); RDW Standard Deviation 66.6 fL (35.1-46.3); Red Blood Cell Count 3.13 M/mm3 (3.80-5.20); White Blood Cell Count 16.79 K/mm3 (4.00-11.30)
[2020-02-06 03:45] LABS: BAND PERCENT MAN 2 % (0-8); BASOPHILS PERCENT MAN 0 % (0-2); EOSINOPHILS PERCENT MAN 0 % (0-6); LYMPHOCYTES ABSOLUTE MAN 0.67 K/mm3 (0.84-5.20); LYMPHOCYTES PERCENT MAN 4 % (21-46); MONOCYTES PERCENT MAN 6 % (4-13); MYELOCYTE ABSOLUTE MAN 0.33 K/mm3 (0.00-0.00); MYELOCYTE PERCENT MAN 2 % (0-0); NEUTROPHILS ABSOLUTE MAN 14.77 K/mm3 (1.96-9.15); SEG NEUTROPHILS PERCENT MAN 86 % (41-73); TOTAL CELLS COUNTED 100
[2020-02-06 04:21] LABS: Albumin, Blood 2.9 g/dL (3.4-5.0); Anion Gap 3 mmol/L (6-16); Blood Urea Nitrogen 59 mg/dL (8-24); Bun/Creatinine Ratio 26.2 (12.0-20.0); CO2, Blood 32 mmol/L (21-32); Calcium, Blood 8.6 mg/dL (8.5-10.1); Chloride, Blood 100 mmol/L (98-108); Creatinine, Blood 2.25 mg/dL (0.40-1.00); Glomerular Filtration Rate 24 (60-); Glucose, Blood 130 mg/dL (70-99); Phosphorus, Blood 6.6 mg/dL (2.5-4.9); Potassium, Blood 6.3 mmol/L (3.5-5.5); Sodium, Blood 135 mmol/L (136-145)
[2020-02-06 08:22] LABS: Bun/Creatinine Ratio 26.5 (12.0-20.0); Calcium, Blood 8.4 mg/dL (8.5-10.1); Creatinine, Blood 2.11 mg/dL (0.40-1.00); Potassium, Blood 5.5 mmol/L (3.5-5.5)
[2020-02-06 13:56] LABS: Calcium, Blood 8.8 mg/dL (8.5-10.1); Creatinine, Blood 2.04 mg/dL (0.40-1.00)
[2020-02-07 04:39] LABS: BASOPHILS ABSOLUTE AUTO 0.05 K/mm3 (0.00-0.23); BASOPHILS PERCENT AUTO 0 % (0-2); EOSINOPHILS ABSOLUTE AUTO 0.08 K/mm3 (0.00-0.68); EOSINOPHILS PERCENT AUTO 1 % (0-6); Hematocrit 29.4 % (33.0-51.0); IMMATURE GRAN PERCENT AUTO 2 % (0-1); LYMPHOCYTES ABSOLUTE AUTO 1.07 K/mm3 (0.84-5.20); LYMPHOCYTES PERCENT AUTO 9 % (21-46); MONOCYTES ABSOLUTE AUTO 1.07 K/mm3 (0.16-1.47); MONOCYTES PERCENT AUTO 9 % (4-13); Mean Corpuscular HGB 26.1 pg (26.0-34.0); Mean Corpuscular HGB Conc 27.2 g/dL (31.5-36.5); Mean Corpuscular Volume 96 fL (80-100); Mean Platelet Volume 11.6 fL (9.1-12.4); NEUTROPHILS ABSOLUTE AUTO 9.28 K/mm3 (1.96-9.15); NEUTROPHILS PERCENT AUTO 79 % (41-73); NRBC ABSOLUTE 0.04 K/mm3 (0.00-0.02); NRBC Auto 0.3 /100 WBC (0.0-0.2); Platelet Count 298 K/mm3 (150-400); Red Blood Cell Count 3.07 M/mm3 (3.80-5.20); White Blood Cell Count 11.75 K/mm3 (4.00-11.30)
[2020-02-07 05:00] LABS: Bun/Creatinine Ratio 22.3 (12.0-20.0); Calcium, Blood 8.5 mg/dL (8.5-10.1); Creatinine, Blood 1.84 mg/dL (0.40-1.00); Potassium, Blood 4.7 mmol/L (3.5-5.5)
[2020-02-09 05:05] LABS: Bun/Creatinine Ratio 18.4 (12.0-20.0); Calcium, Blood 8.4 mg/dL (8.5-10.1); Creatinine, Blood 1.63 mg/dL (0.40-1.00); Potassium, Blood 4.6 mmol/L (3.5-5.5)
[2020-02-09 21:49] LABS: PCO2 Arterial > 105 mmHg (35-45); PO2 Arterial 84.4 mmHg (80-100); pH Blood Arterial 7.04 (7.35-7.45)
[2020-02-09 22:39] LABS: PCO2 Arterial > 105 mmHg (35-45); pH Blood Arterial 7.06 (7.35-7.45)
[2020-02-10 00:06] LABS: Bicarbonate Venous 27.2 mmol/L (24.0-30.0); PCO2 Venous 86.3 mmHg (38-42); PO2 Venous 67.6 mmHg (38-42); pH Blood Venous 7.19 (7.34-7.37)
[2020-02-10 04:06] LABS: Base Excess Venous 6.7 mmol/L; Bicarbonate Venous 29.5 mmol/L (24.0-30.0); PCO2 Venous 59.7 mmHg (38-42); PO2 Venous 56.4 mmHg (38-42); pH Blood Venous 7.34 (7.34-7.37)
[2020-02-11 04:10] LABS: BASOPHILS ABSOLUTE AUTO 0.04 K/mm3 (0.00-0.23); BASOPHILS PERCENT AUTO 0 % (0-2); EOSINOPHILS ABSOLUTE AUTO 0.08 K/mm3 (0.00-0.68); EOSINOPHILS PERCENT AUTO 1 % (0-6); Hemoglobin 8.5 g/dL (11.5-16.0); IMMATURE GRAN ABSOLUTE AUTO 0.03 K/mm3 (0.00-0.10); IMMATURE GRAN PERCENT AUTO 0 % (0-1); LYMPHOCYTES ABSOLUTE AUTO 0.92 K/mm3 (0.84-5.20); LYMPHOCYTES PERCENT AUTO 10 % (21-46); MONOCYTES ABSOLUTE AUTO 0.79 K/mm3 (0.16-1.47); MONOCYTES PERCENT AUTO 8 % (4-13); Mean Corpuscular HGB 28.1 pg (26.0-34.0); Mean Corpuscular HGB Conc 27.4 g/dL (31.5-36.5); Mean Corpuscular Volume 102 fL (80-100); Mean Platelet Volume 10.6 fL (9.1-12.4); NEUTROPHILS ABSOLUTE AUTO 7.54 K/mm3 (1.96-9.15); NEUTROPHILS PERCENT AUTO 80 % (41-73); Platelet Count 283 K/mm3 (150-400); RDW Coefficient Variation 25.3 % (11.7-14.2); RDW Standard Deviation 94.5 fL (35.1-46.3); Red Blood Cell Count 3.03 M/mm3 (3.80-5.20)
[2020-02-11 04:30] LABS: Bun/Creatinine Ratio 17.3 (12.0-20.0); Calcium, Blood 8.6 mg/dL (8.5-10.1); Creatinine, Blood 1.56 mg/dL (0.40-1.00); Potassium, Blood 4.4 mmol/L (3.5-5.5)
[2020-02-11 05:06] LABS: PCO2 Arterial 64.4 mmHg (35-45); pH Blood Arterial 7.35 (7.35-7.45)
[2020-02-11 16:29] LABS: Vancomycin, Trough 18.7 ug/mL (5.0-10.0)
[2020-02-12 05:39] LABS: Bun/Creatinine Ratio 15.1 (12.0-20.0); Calcium, Blood 8.6 mg/dL (8.5-10.1); Creatinine, Blood 1.39 mg/dL (0.40-1.00); Potassium, Blood 3.9 mmol/L (3.5-5.5)
[2020-02-13 09:46] LABS: Bun/Creatinine Ratio 16.8 (12.0-20.0); Calcium, Blood 8.6 mg/dL (8.5-10.1); Creatinine, Blood 1.43 mg/dL (0.40-1.00); Potassium, Blood 4.2 mmol/L (3.5-5.5)
[2020-02-13 16:30] LABS: BASOPHILS ABSOLUTE AUTO 0.02 K/mm3 (0.00-0.23); BASOPHILS PERCENT AUTO 0 % (0-2); EOSINOPHILS ABSOLUTE AUTO 0.23 K/mm3 (0.00-0.68); EOSINOPHILS PERCENT AUTO 2 % (0-6); Hematocrit 35.8 % (33.0-51.0); Hemoglobin 9.8 g/dL (11.5-16.0); IMMATURE GRAN ABSOLUTE AUTO 0.03 K/mm3 (0.00-0.10); IMMATURE GRAN PERCENT AUTO 0 % (0-1); LYMPHOCYTES ABSOLUTE AUTO 0.28 K/mm3 (0.84-5.20); LYMPHOCYTES PERCENT AUTO 2 % (21-46); MONOCYTES ABSOLUTE AUTO 0.51 K/mm3 (0.16-1.47); MONOCYTES PERCENT AUTO 4 % (4-13); Mean Corpuscular HGB 27.9 pg (26.0-34.0); Mean Corpuscular HGB Conc 27.4 g/dL (31.5-36.5); Mean Corpuscular Volume 102 fL (80-100); Mean Platelet Volume 11.4 fL (9.1-12.4); NEUTROPHILS ABSOLUTE AUTO 10.48 K/mm3 (1.96-9.15); NEUTROPHILS PERCENT AUTO 91 % (41-73); Platelet Count 322 K/mm3 (150-400); RDW Coefficient Variation 23.6 % (11.7-14.2); RDW Standard Deviation 87.5 fL (35.1-46.3); Red Blood Cell Count 3.51 M/mm3 (3.80-5.20); White Blood Cell Count 11.55 K/mm3 (4.00-11.30)
[2020-02-13 16:56] LABS: Vancomycin, Trough 22.3 ug/mL (5.0-10.0)
[2020-02-14 05:35] LABS: Anion Gap 4 mmol/L (6-16); Blood Urea Nitrogen 19 mg/dL (8-24); Bun/Creatinine Ratio 13.7 (12.0-20.0); CO2, Blood 34 mmol/L (21-32); Calcium, Blood 8.1 mg/dL (8.5-10.1); Chloride, Blood 105 mmol/L (98-108); Creatinine, Blood 1.39 mg/dL (0.40-1.00); Glomerular Filtration Rate 42 (60-); Glucose, Blood 88 mg/dL (70-99); Potassium, Blood 3.2 mmol/L (3.5-5.5); Sodium, Blood 143 mmol/L (136-145); Vancomycin, Random 17.6 ug/mL
[2020-02-14 13:29] LABS: Source, Urine Catheter
[2020-02-14 13:32] LABS: Appearance, Urine Clear (Clear); Bilirubin, Urine Neg (Neg); Blood, Urine 1+ (Neg); Color, Urine Yellow (P-Yellow); Glucose Qualitative, Urine Neg (Neg); Ketones, Urine Neg (Neg); Leukocyte Esterase, Urine Neg (Neg); Nitrite, Urine Neg (Neg); Protein, Urine 2+ (Neg); Urobilinogen, Urine NORM (Normal)
[2020-02-14 13:46] LABS: Red Blood Cells, Urine 0-2 /hpf (0-2); Squamous Epithelial Cells Many /hpf (Few); White Blood Cells, Urine 0-2 /hpf (0-5)
[2020-02-14 13:47] LABS: Bacteria Few /hpf; Yeast/Fungi Urine Few /hpf
[2020-02-15 06:04] LABS: Vancomycin, Random 22.5 ug/mL
== END 2020-02-16 12:48 | DRG 291 ==
LOC: ER 00:14 → ICUW 01:50 → MEDS 02-04 11:20 → PCU 02-05 17:45 → ICUE 02-06 01:40 → ICUW 02-06 16:45 → MEDS 02-08 16:00 → PCU 02-09 20:43 → ICUE 02-09 22:10 → PCU 02-10 23:28 → MEDS 02-14 14:54
PROVIDERS: Family Medicine; Internal Medicine; Internal Medicine Critical Care Medicine; Internal Medicine Pulmonary Disease; Nurse Practitioner Acute Care; Pharmacist; Student in an Organized Health Care Education/Training Program; ADMIT Internal Medicine
PROC: 30233N1 Transfusion of Nonautologous Red Blood Cells into Peripheral Vein, Percutaneous Approach (ICD-10-PCS; principal; 2020-02-01)
PROC: 5A09457 Assistance with Respiratory Ventilation, 24-96 Consecutive Hours, Continuous Positive Airway Pressure (ICD-10-PCS; 2020-02-01)
DX: I13.0 Hypertensive heart and chronic kidney disease with heart failure and stage 1 through stage 4 chronic kidney disease, or unspecified chronic kidney disease (principal); I50.23 Acute on chronic systolic (congestive) heart failure; J96.22 Acute and chronic respiratory failure with hypercapnia; J96.21 Acute and chronic respiratory failure with hypoxia; J18.9 Pneumonia, unspecified organism; E46 Unspecified protein-calorie malnutrition; N17.9 Acute kidney failure, unspecified; Z66 Do not resuscitate; Z51.5 Encounter for palliative care; Z20.828 Contact with and (suspected) exposure to other viral communicable diseases; N18.30 Chronic kidney disease, stage 3 unspecified; Z99.81 Dependence on supplemental oxygen; J43.9 Emphysema, unspecified; E87.5 Hyperkalemia; I73.9 Peripheral vascular disease, unspecified; Z85.41 Personal history of malignant neoplasm of cervix uteri; Z86.73 Personal history of transient ischemic attack (TIA), and cerebral infarction without residual deficits; E78.5 Hyperlipidemia, unspecified; F17.210 Nicotine dependence, cigarettes, uncomplicated; Z68.21 Body mass index [BMI] 21.0-21.9, adult; I48.91 Unspecified atrial fibrillation; K21.9 Gastro-esophageal reflux disease without esophagitis; D50.9 Iron deficiency anemia, unspecified; R73.9 Hyperglycemia, unspecified; F10.20 Alcohol dependence, uncomplicated; Z79.01 Long term (current) use of anticoagulants; I27.20 Pulmonary hypertension, unspecified; F41.0 Panic disorder [episodic paroxysmal anxiety]
CPT/HCPCS: 31500; 31720; 36415; 36430; 36600; 51702; 71045; 80048; 80053; 80069; 80202; 81001; 82010; 82272; 82550; 82607; 82728; 82746; 82803; 82947; 83540; 83550; 83735; 83880; 83930; 84100; 84145; 84484; 85014; 85018; 85025; 86850; 86900; 86901; 86923; 93005; 93010; 94002; 94640; 94660; 94664; 94667; 94668; 94760; 94762; 96374-59; 97110; 97116; 97162; 97165; 97530; 97535; 98960; 99285-25; 99406; 99407; A9270; A9270-GY; C1751; C9113; J0360; J0610; J0692; J1650; J1815; J1940; J2060; J2405; J2550; J2765; J2916; J3010; J3370; J3480; J7030; J7050; P9016